=== PATIENT | male | born 1985 | race Caucasian/White ===

== ENCOUNTER 2020-04-17 14:32 | Emergency (ER) | payer BC, SELFPAY ==
[2020-04-17 14:34] VITALS: BP 148/78; PULSE 89; RESP 19; TEMP 36.4; O2SAT 96; BMI 67.4
--- NOTE | 2020-04-17 14:53 | CT_ITS ---
STUDY: CT ABDOMEN AND PELVIS WITHOUT CONTRAST REASON FOR EXAM: Male, 34 years old. RUQ ABD PAIN. X 2 MONTHS. Hx of diverticulitis. Hernia surgery at age 1. RADIATION DOSAGE (If Supplied By Facility): CTDIvol = ( 24.33 ) mGy, DLP = ( 1924.53 ) mGycm TECHNIQUE: Transaxial images were obtained from the dome of the diaphragm to the symphysis pubis without oral contrast, and without intravenous contrast. Sagittal and coronal images were reconstructed. Individualized dose optimization techniques were used for this CT. COMPARISON: None. FINDINGS: The visualized lung bases are unremarkable. The visualized portions of the heart are within normal limits. There is decreased attenuation of the liver consistent with steatosis. Mild hepatomegaly. The gallbladder is contracted. Normal spleen. Normal pancreas. Normal bilateral adrenal glands. Normal right kidney. Normal left kidney. Normal visualized stomach. Normal small intestine. Normal colon. The appendix is visualized and appears normal. Normal abdominal aorta. Normal inferior vena cava. Normal retroperitoneum. Normal urinary bladder. Normal abdominal wall. Normal osseous structures. CT/Abdomen/Pelvis W IV Cont ONLY IMPRESSION: Mild hepatomegaly with fatty infiltration of the liver. Electronically Signed: Dylan Eastman, at 15:52 EDT , Service support ,
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
[2020-04-17 15:15] LABS: Absolute Lymphocyte Count 2.06 X10^3/uL (0.83-4.51); Absolute Neutrophil Count 6.6 X10^3/uL (2.0-7.7); Basophil# 0.03 X10^3/uL; Basophil% 0.3 % (0-1); Eosinophil# 0.15 X10^3/uL; Eosinophils% 1.5 % (0-5); Hematocrit 40.8 % (40-54); Hemoglobin 13.5 g/dL (13.0-16.5); Lymphocyte # 2.06 X10^3/ul (4.0); Lymphocyte % 21.3 % (19-41); Mean Corp Hgb Conc 33.1 g/dL (32-36); Mean Corpuscular Hgb 28.8 pg (27.0-32.0); Mean Platelet Vol. 9.4 fl (6.2-12.0); Monocyte# 0.82 X10^3/uL; Monocyte% 8.5 % (0-10); NRBC Flagged by Analyzer 0 % (0-5); Neutrophil % 68.1 % (47-70); Platelet Count 233 K/mm3 (150-450); RBC Distribution Width CV 13.2 % (11.6-14.6); RBC Distribution Width SD 41.7 fl (35.1-43.9); Red Blood Count 4.69 M/mm3 (4.6-6.2); White Blood Count 9.7 K/mm3 (4.4-11.0)
[2020-04-17 15:26] LABS: Bacteria 0 SEEN /hpf (None Seen); Mucous, Urine 0 SEEN /hpf (<or=2+); Red Blood Cells-Urine 0 SEEN /hpf (0-5); Squamous Epithelial Cells - UA 0 SEEN /hpf (0-5); White Blood Cells 0 SEEN /hpf (0-5)
[2020-04-17 15:31] LABS: ALB/GLOB Ratio 0.9 RATIO (0.9-2.4); AST(SGOT) 26 U/L (15-37); Alanine Aminotransfer ALT/SGPT 44 U/L (16-61); Albumin, Serum 3.6 g/dL (3.2-5.0); Alkaline Phosphatase 68 U/L (45-117); Anion Gap 5 (5-15); BUN 19 mg/dL (7-18); Calcium,Total 8.7 mg/dL (8.5-10.1); Chloride 106 mmol/L (98-107); EST Glomerular Filtration Rate 100 mL/min (>60); Est Glom Filt Rate - Afr Amer 122 mL/min (>60); Estimated Creatinine Clearance 128.23 ml/min; Glucose 106 mg/dL (74-106); Lipase 98 U/L (73-393); Protein, Total 7.6 g/dL (6.4-8.2); Sodium Level 139 mmol/L (136-145)
[2020-04-17 15:35] LABS: Color, Urine Yellow (Yellow); Glucose, Dipstick Normal (Normal); Ketone-Dipstick Negative (Negative); Leukocyte Esterase-Dipstick Negative /ul (Negative); Nitrite-Dipstick Negative (Negative); Occult Blood-Urine Negative /ul (Negative); Protein-Dipstick Negative (Negative); Urine Bilirubin Dipstick Negative (Negative); Urine Clarity Clear (Clear); Urine Urobilinogen Normal (Normal)
== END 2020-04-17 17:16 | disposition home or self-care (01) ==
PROVIDERS: Emergency Provider Student in an Organized Health Care Education/Training Program; PCP Family Medicine
DX: R10.11 Right upper quadrant pain (principal); R16.0 Hepatomegaly, not elsewhere classified; I10 Essential (primary) hypertension; K21.9 Gastro-esophageal reflux disease without esophagitis
CPT/HCPCS: 74177; 80053; 81001; 83690; 85025; 99283; Q9967; A4216

== ENCOUNTER 2020-06-04 11:41 | Day surgery (SDC) | payer BC, SELFPAY ==
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
[2020-06-04 12:17] VITALS: BP 147/71; PULSE 77; RESP 16; TEMP 36.2; O2SAT 98; BMI 65.0
[2020-06-04] MEDS: Lactated Ringers 1,000 ML 75 ML IV (12:32)
--- NOTE | 2020-06-04 12:45 | COLBX_PTH ---
PATIENT: TOLU DURAN LOC: EN U#:[id number] AGE/SX: 34/M ROOM: RE06/04/[address]: Dr. Priscilla Calabrese MD : 1985 BED: DIS: 06/04/2020 SPEC #: [id number] RECD: 06/04/20 14:47 STATUS: DANK BRIEN #: [id number] NIKHIL: 06/04/20 12:[address]: Priscilla Calabrese DEPT: SURGICAL PATHOLOGY RECD BY: Keeley Everett ENTERED: 06/05/20 07:26 SP TYPE: COLON BX OTHR DR: MD Dr. Orlin Jon MD Tissues: A - Duodenum, NOS B - Gastric mucous membrane C - Gastric mucous membrane D - COLON BIOPSY Procedures: Trichrome (control) Special Stain Group II Surgery Specimen Level IV Alcian Blue/PAS (control) HEADER OPERATION: Colonoscopy, EGD ([facility] [place]) PRE-OP DIAGNOSIS: RUQ pain TISSUE SUBMITTED: A - Second portion duodenum biopsy, B - Antrum biopsy for histo and H. pylori, C - GE junction biopsy, D - Random colon biopsies MICROSCOPIC DIAGNOSIS A. Second portion of duodenum, biopsy: Minimal nonspecific chronic inflammation. B. Gastric antrum, biopsy: Minimal chronic inflammation. See comment. C. Gastroesophageal junction, biopsy: Chronic inflammation. No evidence of goblet cell metaplasia. See comment. D. Colon, random biopsy: Focal changes suspicious for collagenous colitis. See comment. AM:taisha 06/06/20 COMMENT B. The results of immunohistochemistry for Helicobacter pylori will be reported separately ([id number]). C. Alcian blue/PAS stain with matched control supports the above diagnosis. D. Trichrome stain with matched control was used in the evaluation of this case. MICROSCOPIC DESCRIPTION Slides are reviewed. GROSS DESCRIPTION A - Received in fixative is one container labeled with the patient's name and designated second portion of duodenum, biopsy. The specimen consists of one irregular fragment of light paz soft tissue that measures 0.5 x 0.2 x 0.1 cm. The specimen is totally submitted in one cassette. B - Received in fixative is one container labeled with the patient's name and designated antrum biopsy. The specimen consists of multiple irregular fragments of light paz soft tissue that in aggregate measure 0.3 x 0.3 x 0.1 cm. The specimen is totally submitted in one cassette. C - Received in fixative is one container labeled with the patient's name and designated GE junction biopsy. The specimen consists of two irregular fragments of light paz soft tissue that in aggregate measure 0.7 x 0.5 x 0.1 cm. The specimen is totally submitted in one cassette. D - Received in fixative is one container labeled with the patient's name and designated random colon biopsy. The specimen consists of multiple irregular fragments of light paz soft tissue that in aggregate measure 1.5 x 0.5 x 0.1 cm. The specimen is totally submitted in one cassette. / AM:taisha 06/05/20 TC:3 CPT: 22975 x4, 67937 x2
--- NOTE | 2020-06-04 12:45 | IMM_PTH ---
PATIENT: TOLU DURAN LOC: LEN U#:[id number] AGE/SX: 34/M ROOM: RE06/04/[address]: Dr. Priscilla Calabrese MD : 1985 BED: DIS: 06/04/2020 SPEC #: [id number] RECD: 06/05/20 09:52 STATUS: DANK REOusmane #: [id number] NIKHIL: 06/04/20 12:[address]: Priscilla Calabrese DEPT: IMMUNOHISTOCHEMISTRY RECD BY: Irma Kang ENTERED: 06/05/20 09:54 SP TYPE: IMMUNO OTHR DR: MD Dr. Orlin Jon MD Tissues: B - Stomach, NOS Procedures: H Pylori (initial) PHYSICIAN & INSTITUTION [place] [id number] SPECIMEN INFORMATION: Tissue Source: B - Antrum biopsy Clinical Info: RUQ pain Specimen Number: [id number] CPT code: 03845 METHODOLOGY: Deparaffinized sections of prefer/formalin-fixed tissue or PAP/DQ stained slides are incubated with monoclonal/polyclonal antibodies/oligonucleotide probes. Localization is made via biotin free immunoperoxidase method. Appropriate controls are performed and reacted as expected. Results on target cell population are indicated in the following table: RESULTS: ANTIBODY / CLONE RESULT Block B H Pylori (polyclonal) negative These tests were developed and their performance characteristics determined by [facility]. They may not have been cleared or approved by the U.S. Food and Drug Administration. The FDA has determined that such clearance or approval is not necessary. INTERPRETATION: B. Antrum biopsy: Negative for Helicobacter pylori organisms. AM:taisha 06/06/20
[2020-06-04 13:26] VITALS: BP 114/53; BP 147/71; PULSE 72; RESP 16; TEMP 36.2; O2SAT 96
--- NOTE | 2020-06-04 13:27 | OP.CCLET_ITS ---
06/04/2020 Orlin Canchola Md Re : Upper GI endoscopy procedure for Neil Garces Dear Dr. Canchola This procedure was performed on Thursday, June 04, 2020. My impressions and recommendations are as follows: Impressions : - Normal first portion of the duodenum and second portion of the duodenum. Biopsied. - Normal stomach. Biopsied. - Z-line irregular. Biopsied. Recommendations : - Discharge patient to home (ambulatory). - Resume previous diet. - Continue present medications. - Await pathology results. - Follow up with Safia Oviedo CNP for discussion of results. My findings are described in the full procedure note, which is enclosed. If I can be of further assistance, please feel free to contact me at Doctor phone number(s): , Work: . Sincerely, MD Priscilla Marquez MD 06/04/2020 1:27:22 PM This report has been signed electronically.
--- NOTE | 2020-06-04 13:27 | OP.EGD_ITS ---
Patient Name: Neil Garces Procedure Date: 06/04/2020 12:49 PM Date of : 1985 Age: 34 Procedure: Upper GI endoscopy Indications: Generalized abdominal pain Providers: Priscilla Calabrese MD Referring MD: Orlin Canchola Medicines: See the Anesthesia note for documentation of the administered medications Patient Profile: Refer to note in patient chart for documentation of history and physical. Complications: No immediate complications. Procedure: Pre-Anesthesia Assessment: - see anesthesia note After obtaining informed consent, the endoscope was passed under direct vision. Throughout the procedure, the patient's blood pressure, pulse, and oxygen saturations were monitored continuously. The gastroscope was introduced through the mouth, and advanced to the second part of duodenum. The upper GI endoscopy was accomplished without difficulty. The patient tolerated the procedure well. Scope In: 12:55:25 PM Scope Out: 1:01:51 PM Total Procedure Duration Time 0 hours 6 minutes 26 seconds Findings: The first portion of the duodenum and second portion of the duodenum were normal. Biopsies were taken with a cold forceps for histology. Verification of patient identification for the specimen was done by the nurse. Estimated blood loss was minimal. The entire examined stomach was normal. Biopsies were taken with a cold forceps for histology. Patient had non defined pylorus. The Z-line was irregular and small hiatal hernia was present. Biopsies were taken with a cold forceps for histology. Verification of patient identification for the specimen was done by the nurse. Estimated blood loss was minimal. Impression: - Normal first portion of the duodenum and second portion of the duodenum. Biopsied. - Normal stomach. Biopsied. - Z-line irregular. Biopsied. Recommendation: - Discharge patient to home (ambulatory). - Resume previous diet. - Continue present medications. - Await pathology results. - Follow up with Safia Oviedo CNP for discussion of results. Procedure Code(s): --- Professional --- 24428, Esophagogastroduodenoscopy, flexible, transoral; with biopsy, single or multiple Diagnosis Code(s): --- Professional --- K22.8, Other specified diseases of esophagus R10.84, Generalized abdominal pain CPT copyright 2017 [employer]. All rights reserved. The codes documented in this report are preliminary and upon pl sql developer review may be revised to meet current compliance requirements. MD Priscilla Marquez MD 06/04/2020 1:27:22 PM This report has been signed electronically. Number of Addenda: 0 Note Initiated On: 06/04/2020 12:49 PM
[2020-06-04 13:30] VITALS: BP 110/67; BP 147/71; PULSE 72; RESP 16; O2SAT 97
--- NOTE | 2020-06-04 13:30 | OP.COLON_ITS ---
Patient Name: eNil Garces Procedure Date: 06/04/2020 1:04 PM Date of : 1985 Age: 34 Procedure: Colonoscopy Indications: Generalized abdominal pain Providers: Priscilla Calabrese MD Referring MD: Orlin Canchola Medicines: See the Anesthesia note for documentation of the administered medications Patient Profile: Refer to note in patient chart for documentation of history and physical. Last Colonoscopy: none. The patient's first colonoscopy is today. Complications: No immediate complications. Procedure: Pre-Anesthesia Assessment: - see anesthesia note After I obtained informed consent, the scope was passed under direct vision. Throughout the procedure, the patient's blood pressure, pulse, and oxygen saturations were monitored continuously. The colonoscope was introduced through the anus and advanced to the cecum, identified by the appendiceal orifice, ileocecal valve and palpation. The colonoscopy was performed without difficulty. The patient tolerated the procedure well. The quality of the bowel preparation was adequate to identify polyps 6 mm and larger in size. Scope In: 1:05:04 PM Scope Withdrawal Time 0 hours 9 minutes 1 second Scope Out: 1:22:32 PM Total Procedure Duration Time 0 hours 17 minutes 28 seconds Findings: The perianal and digital rectal examinations were normal. Non-bleeding internal hemorrhoids were found. Multiple small and large-mouthed diverticula were found in the sigmoid colon. Biopsies for histology were taken with a cold forceps from the entire colon for evaluation of microscopic colitis. Impression: - Non-bleeding internal hemorrhoids. - Diverticulosis in the sigmoid colon. - No specimens collected. Recommendation: - Discharge patient to home (ambulatory). - Resume previous diet. - Continue present medications. - Await pathology results. - Follow up with Safia Oviedo CNP for discussion of results - Repeat colonoscopy as per ACS guidelines for screening for colon cancer. Procedure Code(s): --- Professional --- 94361, Colonoscopy, flexible; with biopsy, single or multiple Diagnosis Code(s): --- Professional --- K64.8, Other hemorrhoids R10.84, Generalized abdominal pain K57.30, Diverticulosis of large intestine without perforation or abscess without bleeding CPT copyright 2017 [employer]. All rights reserved. The codes documented in this report are preliminary and upon legal technician review may be revised to meet current compliance requirements. MD Priscilla Marquez MD 06/04/2020 1:30:23 PM This report has been signed electronically. Number of Addenda: 0 Note Initiated On: 06/04/2020 1:04 PM
--- NOTE | 2020-06-04 13:31 | OP.CCLET_ITS ---
06/04/2020 Orlin Canchola Md Re : Colonoscopy procedure for Neil Garces Dear Dr. Canchola This procedure was performed on Thursday, June 04, 2020. My impressions and recommendations are as follows: Impressions : - Non-bleeding internal hemorrhoids. - Diverticulosis in the sigmoid colon. - No specimens collected. Recommendations : - Discharge patient to home (ambulatory). - Resume previous diet. - Continue present medications. - Await pathology results. - Follow up with Safia Oviedo CNP for discussion of results - Repeat colonoscopy as per ACS guidelines for screening for colon cancer. My findings are described in the full procedure note, which is enclosed. If I can be of further assistance, please feel free to contact me at Doctor phone number(s): , Work: . Sincerely, MD Priscilla Marquez MD 06/04/2020 1:30:23 PM This report has been signed electronically.
[2020-06-04 13:35] VITALS: BP 122/72; BP 147/71; PULSE 73; RESP 16
[2020-06-04 13:41] VITALS: BP 128/89; BP 147/71; PULSE 72; RESP 16; TEMP 36.3; O2SAT 100
[2020-06-04 14:10] VITALS: BP 147/71
== END 2020-06-04 14:10 | disposition home or self-care (01) ==
LOC: EN 11:42 → AC 11:47
PROVIDERS: Anesthesiology; PCP Family Medicine; Referring Provider Family Medicine; Visit Provider Surgery
PROC: 0DJD8ZZ Inspection of Lower Intestinal Tract, Via Natural or Artificial Opening Endoscopic (ICD-10-PCS; CPT 45378; principal; 2020-06-04 12:40)
DX: K57.30 Diverticulosis of large intestine without perforation or abscess without bleeding (principal); K64.8 Other hemorrhoids; K29.70 Gastritis, unspecified, without bleeding; K29.80 Duodenitis without bleeding; K22.8 Other specified diseases of esophagus; Z11.59 Encounter for screening for other viral diseases; I10 Essential (primary) hypertension; E55.9 Vitamin D deficiency, unspecified; G47.33 Obstructive sleep apnea (adult) (pediatric); E66.01 Morbid (severe) obesity due to excess calories; Z68.44 Body mass index [BMI] 60.0-69.9, adult; F43.10 Post-traumatic stress disorder, unspecified; Z79.899 Other long term (current) drug therapy; Z87.891 Personal history of nicotine dependence
CPT/HCPCS: 43239; 45380; 87635; 88305; 88313; 88342; C9803; U0003

== ENCOUNTER 2020-09-20 11:42 | Emergency (ER) | payer BC, SELFPAY ==
[2020-09-20 11:43] VITALS: BP 161/86; PULSE 84; RESP 22; TEMP 36.6; O2SAT 96; BMI 66.8
--- NOTE | 2020-09-20 11:53 | NURSING ---
NO OLD EKGS
[2020-09-20 12:25] LABS: Absolute Lymphocyte Count 1.84 X10^3/uL (0.83-4.51); Absolute Neutrophil Count 2.8 X10^3/uL (2.0-7.7); Basophil# 0.02 X10^3/uL; Basophil% 0.4 % (0-1); Eosinophil# 0.09 X10^3/uL; Eosinophils% 1.7 % (0-5); Hematocrit 42.3 % (40-54); Hemoglobin 14.1 g/dL (13.0-16.5); Lymphocyte # 1.84 X10^3/ul (4.0); Lymphocyte % 35.2 % (19-41); Mean Corp Hgb Conc 33.3 g/dL (32-36); Mean Corpuscular Hgb 28.4 pg (27.0-32.0); Mean Corpuscular Volume 85.1 fL (80-94); Mean Platelet Vol. 9.7 fl (6.2-12.0); Monocyte# 0.47 X10^3/uL; NRBC Flagged by Analyzer 0 % (0-5); Neutrophil # 2.79 X10^3/uL (2.7-7.7); Neutrophil % 53.3 % (47-70); Platelet Count 235 K/mm3 (150-450); RBC Distribution Width CV 12.8 % (11.6-14.6); RBC Distribution Width SD 39.5 fl (35.1-43.9); Red Blood Count 4.97 M/mm3 (4.6-6.2); White Blood Count 5.2 K/mm3 (4.4-11.0)
--- NOTE | 2020-09-20 12:32 | RAD_ITS ---
STUDY: X-RAY CHEST REASON FOR EXAM: Male, 35 years old. COUGH, SOB TECHNIQUE: Single AP portable view of the chest. COMPARISON: None. FINDINGS: The lungs are clear and expanded. There is no demonstrated pleural abnormality. Normal size heart. Normal mediastinum and koby. Normal visualized pulmonary arteries. Normal visualized aortic arch and descending thoracic aorta. Normal visualized thoracic spine. Normal visualized ribs, clavicles, and shoulders. There is no demonstrated abnormality of the visualized soft tissue structures of the upper abdomen. RAD/Chest 1 View (Portable) IMPRESSION: Normal x-ray examination of the chest. Electronically Signed: Dylan Eastman, at 13:05 EST , Service support ,
[2020-09-20 12:33] VITALS: O2SAT 97
--- NOTE | 2020-09-20 12:34 | ED.DCSUM_ITS ---
- ER Visit Summary Date of Service: 09/20/20 Chief Complaint: Shortness of breath History of Present Illness: The patient is a 35 M who presents with shortness of breath that began today. Patient states it began while he was at work. Patient states he feels like he cannot catch his breath. Patient also admits to some tightness and coldness in his upper back. Patient states his breathing is worse with exertion. Patient denies any fevers or chills. Patient admits to cough with some srinivas sputum. Patient admits to some pain in his chest. Patient admits to nausea but denies any vomiting. Physical Examination: Vital signs are stable. Patient is afebrile. Patient is in no acute distress. Oral mucosa is pink and moist. Neck is supple. Trachea is midline. There is no JVD noted. Heart was regular rate and rhythm. Lungs are clear and equal bilaterally. Abdomen is soft. Bowel sounds are normal. There is no tenderness. There is no rebound or guarding noted. Skin is warm dry. Cranial nerves II through XII are intact. There are no focal motor or sensory deficits noted. Extremities are intact. There is no calf tenderness or edema. Test Results: Portable 1 view chest x-ray was obtained. On my interpretation, lung woodruff are clear. There is normal cardiac silhouette. Bony thorax is normal. There is no acute process noted. Radiologist also interpreted the x- ray and agrees. CBC and comprehensive metabolic profile were within normal limits. Lactate was normal. COVID-19 rapid antigen was obtained and was negative. Emergency Department Course and Treatment: Patient was given albuterol inhaler here. Patient was given a dose of Tylenol. Patient was instructed to use his albuterol inhaler as needed. Patient was instructed to follow-up with his primary care physician in 5 to 7 days. Patient understood and was agreeable with the plan. All questions were answered. Disposition: Discharge home Impression: Viral upper respiratory infection This note was generated with [employer] dictation software. It may contain incorrect words, spelling, and punctuation that were not noted in review of the chart prior to signing ED Disposition - Plan for ED Patient: Disposition: Home or Assisted Living Diagnosis: Viral upper respiratory infection Instructions: ED URI, Viral, No Abx (Adult) Referrals: Orlin Canchola MD [Primary Care Provider] - 3-5 Days
[2020-09-20 12:38] LABS: ALB/GLOB Ratio 0.9 RATIO (0.9-2.4); AST(SGOT) 36 U/L (15-37); Alanine Aminotransfer ALT/SGPT 78 U/L (16-61); Albumin, Serum 3.6 g/dL (3.2-5.0); Alkaline Phosphatase 73 U/L (45-117); Anion Gap 4 (5-15); BUN 16 mg/dL (7-18); BUN/Creat Ratio 19.7 RATIO (10-20); Chloride 105 mmol/L (98-107); Creatinine, Serum 0.81 mg/dL (0.70-1.30); EST Glomerular Filtration Rate 113 mL/min (>60); Est Glom Filt Rate - Afr Amer 137 mL/min (>60); Estimated Creatinine Clearance 141.11 ml/min; Glucose 106 mg/dL (74-106); Potassium 3.8 mmol/L (3.5-5.1); Protein, Total 7.6 g/dL (6.4-8.2); Sodium Level 138 mmol/L (136-145)
[2020-09-20] MEDS: Acetaminophen 500 MG Tablet 1000 MG PO (12:53)
[2020-09-20 13:06] LABS: Lactic Acid 1.5 mmol/L (0.4-1.9)
[2020-09-20 13:54] VITALS: BP 126/59; PULSE 79; RESP 18; O2SAT 96
[2020-09-20 14:30] VITALS: BP 158/76; PULSE 71; RESP 16; O2SAT 99
== END 2020-09-20 14:31 | disposition home or self-care (01) ==
PROVIDERS: Emergency Provider Emergency Medicine; PCP Family Medicine
DX: J06.9 Acute upper respiratory infection, unspecified (principal); R07.9 Chest pain, unspecified; R11.0 Nausea; I10 Essential (primary) hypertension; G47.33 Obstructive sleep apnea (adult) (pediatric); E66.9 Obesity, unspecified; Z79.899 Other long term (current) drug therapy
CPT/HCPCS: 71045; 80053; 83605; 85025; 87426; 93005; 99285; A4216

== ENCOUNTER 2021-04-01 11:01 | Emergency (ER) | payer BC, SELFPAY ==
[2021-04-01 11:02] VITALS: BP 190/84; PULSE 82; RESP 16; TEMP 36.7; O2SAT 98; BMI 73.2
[2021-04-01 11:25] VITALS: BP 165/73; PULSE 76; RESP 16; O2SAT 98
--- NOTE | 2021-04-01 11:26 | EKG12_ITS ---
Test Reason : CP Blood Pressure : / mmHG Vent. Rate : 081 BPM Atrial Rate : 081 BPM P-R Int : 176 ms QRS Dur : 106 ms QT Int : 392 ms P-R-T Axes : 002 040 023 degrees QTc Int : 455 ms Normal sinus rhythm Normal ECG Confirmed by MALGORZATA ANTONIO, DEBRA ([id number]), film editor VAMSI BLAND ([id number]) on 04/03/2021 9:57:30 AM Referred By: BETH/DONNA Confirmed By:DEBRA MCGARRY MD
--- NOTE | 2021-04-01 11:40 | EDS_ITS ---
HPI History of Present Illness Chief Complaint: Lower Extremity Injury Informant: patient Onset/Context/Timing Onset: Month(s) (2) Context: Gradual Onset Timing: Continuous Quality of Pain: Sharp and Burning Location: Bilateral feet Worsened by: Nothing Relieved by: Movement Associated Symptoms Associated Symptoms: Negative for Parasthesia, Weakness and Loss of Funtion Narrative Narrative: Patient is with bilateral foot pain that has been getting worse over the past 2 months. Patient describes the pain is sharp and burning. Patient states it is better whenever he moves his feet. Patient states nothing makes it worse. Patient denies any paresthesias or weakness. Patient denies any trauma or injury. Patient states he has been driving a lot in the car but they are relatively short trips. Admits to some low back pain as well. Patient states that sometimes the pain radiates from his feet up to his hips. Patient also states he had an episode of pain in his chest and shortness of breath. Patient also had an episode of nausea but denies any vomiting. Patient denies any fevers or chills. PFSH PFS Medical History HTN (hypertension) Injury of meniscus of knee Home Medications cholecalciferol (vitamin D3) 2,000 unit PO DAILY 05/30/20 [History Last Taken Unknown] hydrochlorothiazide 25 mg PO DAILY 05/30/20 [History Last Taken Unknown] lisinopril 40 mg PO DAILY 05/30/20 [History Last Taken Unknown] hydrocodone-acetaminophen 1 tab PO Q6H PRN PRN 3 Days #10 tablet 04/01/21 [Rx Last Taken Unknown] Allergy/AdvReac Type Severity Reaction Status Date / Time No Known Allergies Allergy Verified 09/20/20 11:45 no surgical history Social History Smoking Status: Former smoker ROS ROS ED Constitutional Constitutional ED: Denies chills or fever(s) Eyes Eyes: Denies blurry vision or change in vision ENT ENT ED: Denies rhinorrhea or sore throat Cardiovascular Cardiovascular: Reports chest pain; Denies palpitations Respiratory/Chest Respiratory/Chest: Reports dyspnea; Denies cough Gastrointestinal Gastrointestinal: Reports nausea; Denies vomiting Genitourinary Genitourinary ED: Denies dysuria or hematuria Musculoskeletal Musculoskeletal: Reports back pain; Denies neck pain Integumentary Denies abscess or rash Neurologic Neurologic: Denies headache(s) or weakness Allergic/Immunologic Allergic/Immunologic ED: Denies mouth swelling or urticaria EXAM Physical Exam Const Vital Signs: 04/01/21 11:02 04/01/21 11:24 04/01/21 11:25 Temperature 98.0 F Temperature Source Temporal Pulse Rate 82 76 Respiratory Rate 16 16 Respiratory Effort Normal Non-Labored Blood Pressure 190/84 H 165/73 H Blood Pressure Mean 119 103 Pulse Ox 98 98 Oxygen Delivery Method Room Air Room Air 04/01/21 12:52 Temperature Temperature Source Pulse Rate Respiratory Rate Respiratory Effort Blood Pressure 146/55 H Blood Pressure Mean 85 Pulse Ox Oxygen Delivery Method Positive well nourished, well developed and obese General Appearance ED: well developed Nutritional Appearance: obese HEENT Reports moist mucous membranes Neck supple and no JVD Resp normal respiratory effort and clear to auscultation bilaterally Cardio regular rate, regular rhythm and no murmurs GI normal to inspection, nondistended, normoactive bowel sounds and non-tender Palpation: soft Extremity normal to inspection General Extremety ED: Yes edema; Negative for tenderness General Extremity: edema Neuro oriented x3, CN's II-XII intact bilaterally and no sensory deficits noted Sensorium / Orientation: alert Motor Exam: strength 5/5 throughout Psych mental status grossly normal Skin no rashes or lesions noted MDM MDM MDM Narrative Medical decision making narrative: EKG was obtained. On my interpretation, it showed a normal sinus rhythm with a rate of 81. GA interval, QRS interval, and QTc intervals were all normal. [place] was normal. There are no acute ST or T wave changes. Portable 1 view chest x-ray was obtained. On my interpretation, lung woodruff are clear. There is normal cardiac silhouette. Bony thorax is normal. There is no acute process noted. Radiologist also interpreted the x- ray and agrees. CBC and comprehensive metabolic profile were obtained and were within normal limits. High-sensitivity troponin was normal. Patient is feeling better on reevaluation. Patient was given a prescription for a short course of [place]. Patient was instructed to follow-up with his primary care physician in 5 to 7 days. Patient understood and was agreeable with the plan. All questions were answered. Lab Data Attestation: I reviewed the patient's lab results. Labs: Laboratory Results - last 24 hr 04/01/21 04/01/21 11:40 11:40 WBC 8.8 RBC 4.72 Hgb 13.5 Hct 41.9 MCV 88.8 MCH 28.6 MCHC 32.2 RDW Std Deviation 41.6 RDW Coeff of Simin 12.8 Plt Count 235 MPV 9.6 Immature Gran % (Auto) 0.300 Neut % (Auto) 68.6 Lymph % (Auto) 21.4 [place] % (Auto) 7.5 Eos % (Auto) 1.6 Baso % (Auto) 0.6 Absolute Neuts (auto) 6.0 Absolute Lymphs (auto) 1.88 Nucleated RBC % 0 Sodium 134 L Potassium 4.4 Chloride 100 Carbon Dioxide 27.0 Anion Gap 7 BUN 18 Creatinine 0.70 Estim Creat Clear Calc 158.59 Est GFR (MDRD) Af Amer 164 Est GFR (MDRD) Non-Af 135 BUN/Creatinine Ratio 25.9 H Glucose 116 H Calcium 8.9 Total Bilirubin 0.40 AST 32 ALT 42 Alkaline Phosphatase 68 Troponin I High Sens 12.3 Total Protein 7.5 Albumin 3.5 Globulin 4.0 Albumin/Globulin Ratio 0.9 Radiography Diagnostic Testing: Radiology Impression Chest X-Ray 04/01/21 11:44 IMPRESSION: No radiographic evidence of acute cardiopulmonary disease. at 1209 Reported and signed by: Eloise Paul MD Electronically Signed: Eloise Paul MD at 12:08 EDT Tel , Service support , EKG Initial EKG: Attestation: I personally reviewed and interpreted this EKG as follows: Interpretation: Sinus Rhythm (81) and No Acute Injury Pattern Prior EKG tracings: available for review Prior: Unchanged (09/20/2020) Discharge Plan Triage Chief Complaint: Lower Extremity Injury ED Provider: Monroe Forrest Dx/Rx/DC Orders Clinical Impression: Bilateral pain of leg and foot Instructions: ED Pain, Acute, Uncertain Cause Prescriptions: New hydrocodone-acetaminophen [hydrocodone-acetaminophen] 1 TABLET tablet 1 tab PO Q6H PRN PRN (Reason: Pain) 3 Days Qty: 10 RF: 0 No Action hydrochlorothiazide 25 MG tablet 25 mg PO DAILY RF: 0 lisinopril 40 MG tablet 40 mg PO DAILY RF: 0 cholecalciferol (vitamin D3) 2,000 UNIT capsule 2,000 unit PO DAILY RF: 0 Primary Care Provider: Orlin Canchola Referrals: Orlin Canchola MD [Primary Care Provider] - 3-5 Days Disposition Disposition: Home, Self Care
--- NOTE | 2021-04-01 11:44 | RAD_ITS ---
HISTORY: chest pain. TECHNIQUE: XR Chest 1 View. # of images incl. paperwork: 1. COMPARISON: 09/20/2020. FINDINGS: CARDIOMEDIASTINAL STRUCTURES: Cardiac silhouette not enlarged. Mediastinal contour unremarkable. LUNGS: Radiographically clear. PLEURA: No pleural effusion or pneumothorax. OSSEOUS STRUCTURES: Unremarkable. RAD/Chest 1 View (Portable) IMPRESSION: No radiographic evidence of acute cardiopulmonary disease. at 1209 Reported and signed by: Eloise Paul MD Electronically Signed: Eloise Paul MD at 12:08 EDT Tel , Service support ,
[2021-04-01 11:51] LABS: Absolute Lymphocyte Count 1.88 X10^3/uL (0.83-4.51); Basophil# 0.05 X10^3/uL; Basophil% 0.6 % (0-1); Eosinophil# 0.14 X10^3/uL; Eosinophils% 1.6 % (0-5); Hematocrit 41.9 % (40-54); Hemoglobin 13.5 g/dL (13.0-16.5); Lymphocyte # 1.88 X10^3/ul (0.83-4.51); Lymphocyte % 21.4 % (19-41); Mean Corp Hgb Conc 32.2 g/dL (32-36); Mean Corpuscular Hgb 28.6 pg (27.0-32.0); Mean Corpuscular Volume 88.8 fL (80-94); Mean Platelet Vol. 9.6 fl (6.2-12.0); Monocyte# 0.66 X10^3/uL; Monocyte% 7.5 % (0-10); NRBC Flagged by Analyzer 0 % (0-5); Neutrophil # 6.04 X10^3/uL (2.7-7.7); Neutrophil % 68.6 % (47-70); Platelet Count 235 K/mm3 (150-450); RBC Distribution Width CV 12.8 % (11.6-14.6); RBC Distribution Width SD 41.6 fl (35.1-43.9); Red Blood Count 4.72 M/mm3 (4.6-6.2); White Blood Count 8.8 K/mm3 (4.4-11.0)
[2021-04-01 12:15] LABS: ALB/GLOB Ratio 0.9 RATIO (0.9-2.4); AST(SGOT) 32 U/L (15-37); Alanine Aminotransfer ALT/SGPT 42 U/L (16-61); Albumin, Serum 3.5 g/dL (3.2-5.0); Alkaline Phosphatase 68 U/L (45-117); Anion Gap 7 (5-15); BUN 18 mg/dL (7-18); BUN/Creat Ratio 25.9 RATIO (10-20); Calcium,Total 8.9 mg/dL (8.5-10.1); Chloride 100 mmol/L (98-107); EST Glomerular Filtration Rate 135 mL/min (>60); Est Glom Filt Rate - Afr Amer 164 mL/min (>60); Estimated Creatinine Clearance 158.59 ml/min; Glucose 116 mg/dL (74-106); Potassium 4.4 mmol/L (3.5-5.1); Protein, Total 7.5 g/dL (6.4-8.2); Sodium Level 134 mmol/L (136-145); Troponin-I HS 12.3 pg/mL (3.0-78.5)
[2021-04-01 12:52] VITALS: BP 146/55
== END 2021-04-01 14:38 | disposition home or self-care (01) ==
PROVIDERS: Emergency Provider Emergency Medicine; PCP Family Medicine
DX: M79.604 Pain in right leg (principal); M79.605 Pain in left leg; M79.671 Pain in right foot; M79.672 Pain in left foot; R07.9 Chest pain, unspecified; R06.02 Shortness of breath; R11.0 Nausea; M54.5 Low back pain; I10 Essential (primary) hypertension; E66.9 Obesity, unspecified; Z79.899 Other long term (current) drug therapy; Z87.891 Personal history of nicotine dependence
CPT/HCPCS: 71045; 80053; 84484; 85025; 93005; 99285; A4216

== ENCOUNTER 2021-08-07 10:32 | Emergency (ER) | payer BC, SELFPAY ==
[2021-08-07 10:33] VITALS: BP 208/85; PULSE 84; RESP 18; TEMP 36.1; O2SAT 97; BMI 69.7
--- NOTE | 2021-08-07 11:40 | CT_ITS ---
STUDY: CT ABDOMEN AND PELVIS WITH CONTRAST REASON FOR EXAM: Male, 36 years old. Abdominal pain since Wednesday. RADIATION DOSAGE (If Supplied By Facility): CTDIvol = ( 40.91 ) mGy, DLP = ( 2147.83 ) mGycm TECHNIQUE: Transaxial images were obtained from the dome of the diaphragm to the symphysis pubis without oral contrast. IV 100mL Isovue-370 was administered. Sagittal and coronal images were reconstructed. Individualized dose optimization techniques were used for this CT. COMPARISON: Comparison is made with prior study dated 04/17/2020. FINDINGS: The visualized lung bases are unremarkable. The visualized portions of the heart are within normal limits. There is decreased attenuation of the liver consistent with steatosis. Hepatomegaly. Normal gallbladder and extrahepatic biliary system. Normal spleen. Normal pancreas. Normal bilateral adrenal glands. Normal right kidney. Normal left kidney. Normal visualized stomach. Normal small intestine. There are scattered colonic diverticula consistent with diverticulosis. The appendix is visualized and appears normal. Normal abdominal aorta. Normal inferior vena cava. Normal retroperitoneum. Normal urinary bladder. Normal abdominal wall. Normal osseous structures. CT/Abdomen/Pelvis W IV Cont ONLY IMPRESSION: Hepatomegaly and diffuse fatty infiltration of liver. Scattered sigmoid diverticula. Electronically Signed: Dylan Eastman MD at 13:25 EST , Service support ,
--- NOTE | 2021-08-07 11:41 | EX.ED.DYSGE1 ---
HPI History of Present Illness Chief Complaint: Abd Pain Informant: patient Narrative Narrative: 36-year-old male presenting to the emergency department with abdominal pain. Patient notes pain across his upper abdomen since Wednesday states it feels very similar to pain he experienced when he had diverticulitis in 2018. He states at that time he was hospitalized but did not have an abscess or perforation. He had a follow-up colonoscopy by Dr. Shankar and has had an EGD with Dr. Calabrese. He denies any fevers. He notes diarrhea yesterday. PFSH PFSH Medical History (Updated 08/07/21 @ 14:[address] Trevor Morrison DO) HTN (hypertension) Injury of meniscus of knee Home Medications cholecalciferol (vitamin D3) 2,000 unit PO DAILY 05/30/20 [History Last Taken Unknown] hydrochlorothiazide 25 mg PO DAILY 05/30/20 [History Last Taken Unknown] lisinopril 40 mg PO DAILY 05/30/20 [History Last Taken Unknown] hydrocodone-acetaminophen 1 tab PO Q6H PRN PRN 3 Days #10 tablet 04/01/21 [Rx Last Taken Unknown] pantoprazole [Protonix] 40 mg PO DAILY #30 tab 08/07/21 [Rx Last Taken Unknown] sucralfate [Carafate] 1 g PO Q6H 14 Days #56 tab 08/07/21 [Rx Last Taken Unknown] Allergy/AdvReac Type Severity Reaction Status Date / Time No Known Allergies Allergy Verified 09/20/20 11:45 Surgical History (Updated 08/07/21 @ 11:[address] Trevor Morrison DO) H/O left knee surgery Social History (Updated 08/07/21 @ 11:[address] Trevor Morrison DO) Smoking Status: Former smoker substance use type: does not use ROS ROS ED Constitutional Constitutional ED: Denies chills or weight loss Eyes Eyes: Denies change in vision or diplopia ENT ENT ED: Denies ear pain, rhinorrhea or sore throat Cardiovascular Cardiovascular: Denies chest pain, orthopnea, palpitations or racing heartbeat Respiratory/Chest Respiratory/Chest: Denies cough, dyspnea or orthopnea Gastrointestinal Gastrointestinal: Reports abdominal pain, diarrhea and nausea; Denies vomiting Genitourinary Genitourinary ED: Denies dysuria, hematuria or urinary frequency Musculoskeletal Musculoskeletal: Denies arthralgias or myalgias Integumentary Denies abscess or rash Neurologic Neurologic: Denies headache(s) or weakness Psychiatric Psychiatric: Denies anxiety, depression, suicidal ideation or suicidal thoughts Endocrine Endocrinology: Denies polydipsia, polyphagia or polyuria Allergic/Immunologic Allergic/Immunologic ED: Denies mouth swelling, tongue swelling or urticaria EXAM Physical Exam Const Vital Signs: 08/07/21 10:33 Temperature 97.0 F L Temperature Source Temporal Pulse Rate 84 Respiratory Rate 18 Blood Pressure 208/85 H Blood Pressure Mean 126 Pulse Ox 97 Oxygen Delivery Method Room Air Positive well nourished, well developed and obese General Appearance ED: well developed Nutritional Appearance: obese HEENT Reports normocephalic, head/scalp atraumatic, TM's clear and moist mucous membranes Negative for trauma Tympanic Membrane ED: Yes TM's clear Eyes PERRL and EOMs intact bilaterally Neck no lymphadenopathy, supple and no JVD Resp normal respiratory effort and clear to auscultation bilaterally Cardio regular rate, regular rhythm and no murmurs GI non-tender Auscultation: normoactive bowel sounds Palpation: soft and tender epigastric and LUQ Back/Spine no CVA tenderness and normal ROM Extremity normal to inspection General Extremety ED: Negative for edema General Extremity: Negative for edema Neuro oriented x3 and CN's II-XII intact bilaterally Sensorium / Orientation: alert Motor Exam: strength 5/5 throughout Psych mental status grossly normal Mood & Affect: Negative for depressed or tearful Skin no rashes or lesions noted and no wounds MDM MDM MDM Narrative Medical decision making narrative: Basic blood work is normal. Urinalysis is negative. CT the abdomen pelvis demonstrates sigmoid diverticulosis but no other obvious intra-abdominal abnormalities. I wonder if this could be gastritis versus peptic ulcer disease. We can start him on some Protonix and Carafate. He does note that sometimes the pain is worse with eating but sometimes not. I do not see any obvious bowel obstruction or anything we need to admit him for at this time. Patient is comfortable with her plan return if worsening or concern Lab Data Attestation: I reviewed the patient's lab results. Labs: Laboratory Results - last 24 hr 08/07/21 08/07/21 08/07/21 11:30 11:50 11:50 WBC 6.9 RBC 4.57 L Hgb 13.4 Hct 40.4 MCV 88.4 MCH 29.3 MCHC 33.2 RDW Std Deviation 41.4 RDW Coeff of Simin 12.9 Plt Count 217 MPV 9.4 Immature Gran % (Auto) 0.300 Neut % (Auto) 65.8 Lymph % (Auto) 23.6 [place] % (Auto) 8.6 Eos % (Auto) 1.3 Baso % (Auto) 0.4 Absolute Neuts (auto) 4.5 Absolute Lymphs (auto) 1.62 Nucleated RBC % 0 Sodium 137 Potassium 4.2 Chloride 104 Carbon Dioxide 28.0 Anion Gap 5 BUN 14 Creatinine 0.67 L Estim Creat Clear Calc 164.08 Est GFR (MDRD) Af Amer 170 Est GFR (MDRD) Non-Af 140 BUN/Creatinine Ratio 20.8 H Glucose 100 Calcium 9.2 Total Bilirubin 0.40 AST 31 ALT 52 Alkaline Phosphatase 64 Total Protein 7.6 Albumin 3.4 Globulin 4.2 Albumin/Globulin Ratio 0.8 L Lipase 66 L Urine Color Yellow Urine Clarity Sl. Cloudy Urine pH 5.0 Ur Specific [place] 1.020 Urine Protein 15 H Urine Glucose (UA) Normal Urine Ketones Negative Urine Occult Blood Negative Urine Nitrite Negative Urine Bilirubin Negative Urine Urobilinogen Normal Ur Leukocyte Esterase Negative Urine RBC 0-5 SEEN Urine WBC 0 SEEN Ur Squamous Epith Cells 0-5 SEEN Urine Bacteria RARE Urine Mucus 1+ Radiography Diagnostic Testing: Clinical Impression(s) from Imaging Studies Abdomen/Pelvis CT 08/07/21 11:40 IMPRESSION: Hepatomegaly and diffuse fatty infiltration of liver. Scattered sigmoid diverticula. Electronically Signed: Dylan Eastman MD at 13:25 EST , Service support , Discharge Plan Triage Chief Complaint: Abd Pain ED Provider: Trevor Morrison Dx/Rx/DC Orders Clinical Impression: Abdominal pain, acute Instructions: ED PEPTIC ULCER vs GASTRITIS Prescriptions: New sucralfate [Carafate] 1 gram tablet 1 g PO Q6H 14 Days Qty: 56 RF: 0 pantoprazole [Protonix] 40 mg tablet,delayed release (DR/EC) 40 mg PO DAILY Qty: 30 RF: 0 No Action hydrochlorothiazide 25 MG tablet 25 mg PO DAILY RF: 0 lisinopril 40 MG tablet 40 mg PO DAILY RF: 0 cholecalciferol (vitamin D3) 2,000 UNIT capsule 2,000 unit PO DAILY RF: 0 hydrocodone-acetaminophen [hydrocodone-acetaminophen] 1 TABLET tablet 1 tab PO Q6H PRN PRN (Reason: Pain) 3 Days Qty: 10 RF: 0 Primary Care Provider: Orlin Canchola Referrals: Gerber Krishnamurthy DO [STAFF PHYSICIAN] - As Needed (For gastroenterology evaluation if needed) Orlin Canchola MD [Primary Care Provider] - 1 Week if not improving Disposition Disposition: Home, Self Care
[2021-08-07 11:53] LABS: Color, Urine Yellow (Yellow); Glucose, Dipstick Normal (Normal); Ketone-Dipstick Negative (Negative); Leukocyte Esterase-Dipstick Negative /ul (Negative); Nitrite-Dipstick Negative (Negative); Occult Blood-Urine Negative /ul (Negative); Protein-Dipstick 15 mg/dl (Negative); Urine Bilirubin Dipstick Negative (Negative); Urine Clarity Sl. Cloudy (Clear); Urine Urobilinogen Normal (Normal); White Blood Cells 0 SEEN /hpf (0-5)
[2021-08-07 11:56] LABS: Absolute Lymphocyte Count 1.62 X10^3/uL (0.83-4.51); Absolute Neutrophil Count 4.5 X10^3/uL (2.0-7.7); Basophil# 0.03 X10^3/uL; Basophil% 0.4 % (0-1); Eosinophil# 0.09 X10^3/uL; Eosinophils% 1.3 % (0-5); Hematocrit 40.4 % (40-54); Hemoglobin 13.4 g/dL (13.0-16.5); Lymphocyte # 1.62 X10^3/ul (0.83-4.51); Lymphocyte % 23.6 % (19-41); Mean Corp Hgb Conc 33.2 g/dL (32-36); Mean Corpuscular Hgb 29.3 pg (27.0-32.0); Mean Corpuscular Volume 88.4 fL (80-94); Mean Platelet Vol. 9.4 fl (6.2-12.0); Monocyte# 0.59 X10^3/uL; Monocyte% 8.6 % (0-10); NRBC Flagged by Analyzer 0 % (0-5); Neutrophil % 65.8 % (47-70); Platelet Count 217 K/mm3 (150-450); RBC Distribution Width CV 12.9 % (11.6-14.6); RBC Distribution Width SD 41.4 fl (35.1-43.9); Red Blood Count 4.57 M/mm3 (4.6-6.2); White Blood Count 6.9 K/mm3 (4.4-11.0)
[2021-08-07 11:58] LABS: Bacteria RARE /hpf (None Seen); Mucous, Urine 1+ /hpf (<or=2+); Red Blood Cells-Urine 0-5 SEEN /hpf (0-5); Squamous Epithelial Cells - UA 0-5 SEEN /hpf (0-5)
[2021-08-07 12:16] LABS: ALB/GLOB Ratio 0.8 RATIO (0.9-2.4); AST(SGOT) 31 U/L (15-37); Alanine Aminotransfer ALT/SGPT 52 U/L (16-61); Albumin, Serum 3.4 g/dL (3.2-5.0); Alkaline Phosphatase 64 U/L (45-117); Anion Gap 5 (5-15); BUN 14 mg/dL (7-18); BUN/Creat Ratio 20.8 RATIO (10-20); Calcium,Total 9.2 mg/dL (8.5-10.1); Chloride 104 mmol/L (98-107); Creatinine, Serum 0.67 mg/dL (0.70-1.30); EST Glomerular Filtration Rate 140 mL/min (>60); Est Glom Filt Rate - Afr Amer 170 mL/min (>60); Estimated Creatinine Clearance 164.08 ml/min; Globulin 4.2 g/dL (2.2-4.2); Glucose 100 mg/dL (74-106); Lipase 66 U/L (73-393); Potassium 4.2 mmol/L (3.5-5.1); Protein, Total 7.6 g/dL (6.4-8.2); Sodium Level 137 mmol/L (136-145)
[2021-08-07 12:32] VITALS: BP 194/100; PULSE 71
[2021-08-07 14:14] VITALS: BP 196/70; PULSE 74
[2021-08-07 14:16] VITALS: BP 196/70; PULSE 74
== END 2021-08-07 14:22 | disposition home or self-care (01) ==
PROVIDERS: Emergency Provider Emergency Medicine; PCP Family Medicine
DX: R10.9 Unspecified abdominal pain (principal); K57.30 Diverticulosis of large intestine without perforation or abscess without bleeding; I10 Essential (primary) hypertension; E66.9 Obesity, unspecified; Z79.899 Other long term (current) drug therapy; Z87.891 Personal history of nicotine dependence; Z87.19 Personal history of other diseases of the digestive system
CPT/HCPCS: 74177; 80053; 81001; 83690; 85025; 99283; Q9967; A4216

== ENCOUNTER 2021-11-10 09:34 | Emergency (ER) | payer BC, SELFPAY ==
[2021-11-10 09:35] VITALS: BP 213/87; PULSE 76; RESP 20; TEMP 36.5; O2SAT 96; BMI 69.7
--- NOTE | 2021-11-10 10:05 | RAD_ITS ---
STUDY: X-RAY CHEST REASON FOR EXAM: Male, 36 years old. Chest pain TECHNIQUE: Single AP portable view of the chest. COMPARISON: Comparison is made with prior study dated 04/01/2021. FINDINGS: The lungs are clear and expanded. There is no demonstrated pleural abnormality. Normal size heart. Normal mediastinum and koby. Normal visualized pulmonary arteries. Normal visualized aortic arch and descending thoracic aorta. Normal visualized thoracic spine. Normal visualized ribs, clavicles, and shoulders. There is no demonstrated abnormality of the visualized soft tissue structures of the upper abdomen. RAD/Chest 1 View (Portable) IMPRESSION: Normal x-ray examination of the chest. Electronically Signed: Dylan Eastman MD at 10:40 EST ,
--- NOTE | 2021-11-10 10:07 | EKG12_ITS ---
Test Reason : CHEST PAIN Blood Pressure : / mmHG Vent. Rate : 071 BPM Atrial Rate : 071 BPM P-R Int : 172 ms QRS Dur : 106 ms QT Int : 406 ms P-R-T Axes : 004 037 025 degrees QTc Int : 441 ms Normal sinus rhythm Normal ECG Confirmed by GERRI ANTONIO, DEBI ([id number]), development editor VAMSI BLAND ([id number]) on 11/11/2021 9:56:29 AM Referred By: PC Confirmed By:DEBI TALLEY MD
[2021-11-10 10:09] VITALS: O2SAT 98
[2021-11-10] MEDS: Aspirin 81 MG TAB.CHEW 324 MG PO (10:16)
--- NOTE | 2021-11-10 10:27 | ED.VIS.CHEST ---
HPI History of Present Illness Chief Complaint: Chest Pain Informant: patient Narrative Narrative: Patient is a 36-year-old male with history of hypertension, PTSD, lower extremity edema and GERD presenting with chest pain. He states he started having nod sensation and pain in his chest on , 11/06/21. States is been constant since then but worse with movements or when his blood pressure goes up. He had some associated nausea today. States intermittently the pain will radiate to his shoulder blades or his left ribs. He describes the pain as his lower sternum and just to the left of that. Is not reproduced with palpation. No associated rash. Denies any new sweating. Denies any difficulty breathing or shortness of breath. Denies any significant cardiac history. Denies any new leg swelling. Notes he has chronic leg swelling which is why he was put on HCTZ. Has a family history of coronary artery disease, his father had an IL. Last month he was started on trazodone and sertraline. Is not sure if this is associated with his symptoms or not. [facility] Medical History HTN (hypertension) Injury of meniscus of knee Home Medications cholecalciferol (vitamin D3) 2,000 unit PO DAILY 05/30/20 [History Last Taken Unknown] hydrochlorothiazide 25 mg PO DAILY 05/30/20 [History Last Taken Unknown] lisinopril 40 mg PO DAILY 05/30/20 [History Last Taken Unknown] hydrocodone-acetaminophen 1 tab PO Q6H PRN PRN 3 Days #10 tablet 04/01/21 [Rx Last Taken Unknown] pantoprazole [Protonix] 40 mg PO DAILY #30 tab 08/07/21 [Rx Last Taken Unknown] sucralfate [Carafate] 1 g PO Q6H 14 Days #56 tab 08/07/21 [Rx Last Taken Unknown] Allergy/AdvReac Type Severity Reaction Status Date / Time No Known Allergies Allergy Verified 11/10/21 09:37 Surgical History H/O left knee surgery Social History Smoking Status: Former smoker substance use type: does not use ROS ROS ED Constitutional Constitutional ED: Denies chills or fever(s) Eyes Eyes: Denies blurry vision or change in vision ENT ENT ED: Denies ear pain Cardiovascular Cardiovascular: Reports as per HPI and chest pain; Denies palpitations Respiratory/Chest Respiratory/Chest: Denies cough or dyspnea Gastrointestinal Gastrointestinal: Reports diarrhea and nausea; Denies abdominal pain or vomiting Genitourinary Genitourinary ED: Denies dysuria or hematuria Musculoskeletal Musculoskeletal: Reports other Details: chronic lower extremity edema ; Denies arthralgias or myalgias Integumentary Denies rash Neurologic Neurologic: Denies headache(s) or weakness Psychiatric Psychiatric: Reports anxiety EXAM Physical Exam Const Vital Signs: 11/10/21 09:35 11/10/21 10:09 11/10/21 10:17 Temperature 97.7 F L Temperature Source Temporal Pulse Rate 76 Respiratory Rate 20 H Respiratory Effort Blood Pressure 213/87 H Blood Pressure Mean 129 Pulse Ox 96 98 Oxygen Delivery Method Room Air Room Air Room Air 11/10/21 12:11 11/10/21 13:22 11/10/21 13:37 Temperature Temperature Source Pulse Rate 86 88 Respiratory Rate 16 15 Respiratory Effort Normal Non-Labored Blood Pressure 149/83 H 145/54 H 149/85 H Blood Pressure Mean 105 84 Pulse Ox 95 98 Oxygen Delivery Method Room Air Positive well nourished, well developed and obese General Appearance ED: well developed Nutritional Appearance: obese HEENT Reports moist mucous membranes normocephalic and atraumatic Eyes PERRL and EOMs intact bilaterally Neck supple and no JVD Chest Wall inspection of chest normal and palpation of chest normal Chest: Negative for tenderness Resp normal respiratory effort Resp Narrative: 2+ bilateral pitting edema pretibial Auscultation: diminished lung sounds diffuse Cardio regular rate, regular rhythm and no murmurs GI normal to inspection, nondistended, normoactive bowel sounds Extremity normal to inspection General Extremety ED: Yes edema; Negative for tenderness General Extremity: edema Neuro oriented x3 Sensorium / Orientation: awake and alert Psych mental status grossly normal Skin no rashes or lesions noted Skin Narrative: Chronic venous stasis changes of the lower extremities. Heart Score History: Slightly/Non-Suspicious ECG: Normal Age: </= 45 years Risk Factors: 1 or 2 Risk Factors Troponin: </= Normal Limit Score: 1 MDM MDM MDM Narrative Medical decision making narrative: Patient is evaluated for chest pain has been going on for 3 to 4 days. Is been constant but fluctuating intensity. Patient appears nontoxic in no acute distress. His vital signs are markable for hypertension however it improved significantly without any intervention. Patient's EKG is normal sinus rhythm interpreted by myself. Lab work-up is largely unremarkable. His high since he troponin is 14 and 16. His BNP is normal. His TSH is 1.82. Normal CBC and BMP. Patient has no risk factors for PE and is PE RC negative. Patient will be discharged with outpatient cardiac follow-up. He is agreeable to splenic care. Patient counseled the exact cause of his pain is not clear however I do think he is stable for outpatient follow-up. Counseled on return precautions. Is given a dose of aspirin in the emergency room. Lab Data Labs: Laboratory Results - last 24 hr 11/10/21 11/10/21 11/10/21 10:02 10:02 10:02 WBC 8.4 RBC 4.76 Hgb 13.8 Hct 41.8 MCV 87.8 MCH 29.0 MCHC 33.0 RDW Std Deviation 41.9 RDW Coeff of Simin 13.0 Plt Count 229 MPV 9.6 Immature Gran % (Auto) 0.400 Neut % (Auto) 67.3 Lymph % (Auto) 22.1 Lander % (Auto) 7.7 Eos % (Auto) 1.9 Baso % (Auto) 0.6 Absolute Neuts (auto) 5.7 Absolute Lymphs (auto) 1.86 Nucleated RBC % 0 Sodium 136 Potassium 3.8 Chloride 100 Carbon Dioxide 32.0 Anion Gap 4 L BUN 15 Creatinine 0.72 Estim Creat Clear Calc 157.21 Est GFR (MDRD) Af Amer 158 Est GFR (MDRD) Non-Af 130 BUN/Creatinine Ratio 20.9 H Glucose 128 H Calcium 9.3 Troponin I High Sens 14 B-Natriuretic Peptide 17.0 TSH 1.82 11/10/21 12:10 WBC RBC Hgb Hct MCV MCH MCHC RDW Std Deviation RDW Coeff of Simin Plt Count MPV Immature Gran % (Auto) Neut % (Auto) Lymph % (Auto) Lander % (Auto) Eos % (Auto) Baso % (Auto) Absolute Neuts (auto) Absolute Lymphs (auto) Nucleated RBC % Sodium Potassium Chloride Carbon Dioxide Anion Gap BUN Creatinine Estim Creat Clear Calc Est GFR (MDRD) Af Amer Est GFR (MDRD) Non-Af BUN/Creatinine Ratio Glucose Calcium Troponin I High Sens 16 B-Natriuretic Peptide TSH Radiography Diagnostic Testing: Clinical Impression(s) from Imaging Studies Chest X-Ray 11/10/21 10:05 IMPRESSION: Normal x-ray examination of the chest. Electronically Signed: Dylan Eastman MD at 10:40 EST , Rhythm Strip Rhythm Strip: Sinus Rhythm Rate: 71 Ectopy: None EKG Initial EKG: Attestation: I personally reviewed and interpreted this EKG as follows: Interpretation: Sinus Rhythm Comments: Normal sinus rhythm at a rate of 71 Normal axis Normal intervals Normal ST segments Discharge Plan Triage Chief Complaint: Chest Pain ED Provider: Tana Dodge Dx/Rx/DC Orders Clinical Impression: Chest pain, Hypertension Instructions: ED Chest Pain, Uncertain Cause, ED Hypertension, Established Prescriptions: No Action hydrochlorothiazide 25 MG tablet 25 mg PO DAILY RF: 0 lisinopril 40 MG tablet 40 mg PO DAILY RF: 0 cholecalciferol (vitamin D3) 2,000 UNIT capsule 2,000 unit PO DAILY RF: 0 hydrocodone-acetaminophen [hydrocodone-acetaminophen] 1 TABLET tablet 1 tab PO Q6H PRN PRN (Reason: Pain) 3 Days Qty: 10 RF: 0 sucralfate [Carafate] 1 gram tablet 1 g PO Q6H 14 Days Qty: 56 RF: 0 pantoprazole [Protonix] 40 mg tablet,delayed release (DR/EC) 40 mg PO DAILY Qty: 30 RF: 0 Primary Care Provider: Orlin Canchola Referrals: Orlin Canchola MD [Primary Care Provider] - Disposition Disposition: Home, Self Care Discharge Date/Time: 11/10/21 13:38
[2021-11-10 10:33] LABS: Absolute Lymphocyte Count 1.86 X10^3/uL (0.83-4.51); Absolute Neutrophil Count 5.7 X10^3/uL (2.0-7.7); Basophil# 0.05 X10^3/uL; Basophil% 0.6 % (0-1); Eosinophil# 0.16 X10^3/uL; Eosinophils% 1.9 % (0-5); Hematocrit 41.8 % (40-54); Hemoglobin 13.8 g/dL (13.0-16.5); Lymphocyte # 1.86 X10^3/ul (0.83-4.51); Lymphocyte % 22.1 % (19-41); Mean Corpuscular Volume 87.8 fL (80-94); Mean Platelet Vol. 9.6 fl (6.2-12.0); Monocyte# 0.65 X10^3/uL; Monocyte% 7.7 % (0-10); NRBC Flagged by Analyzer 0 % (0-5); Neutrophil # 5.67 X10^3/uL (2.7-7.7); Neutrophil % 67.3 % (47-70); Platelet Count 229 K/mm3 (150-450); RBC Distribution Width SD 41.9 fl (35.1-43.9); Red Blood Count 4.76 M/mm3 (4.6-6.2); White Blood Count 8.4 K/mm3 (4.4-11.0)
[2021-11-10 10:56] LABS: Anion Gap 4 (5-15); BUN 15 mg/dL (7-18); BUN/Creat Ratio 20.9 RATIO (10-20); Calcium,Total 9.3 mg/dL (8.5-10.1); Chloride 100 mmol/L (98-107); Creatinine, Serum 0.72 mg/dL (0.70-1.30); EST Glomerular Filtration Rate 130 mL/min (>60); Est Glom Filt Rate - Afr Amer 158 mL/min (>60); Estimated Creatinine Clearance 157.21 ml/min; Glucose 128 mg/dL (74-106); Potassium 3.8 mmol/L (3.5-5.1); Sodium Level 136 mmol/L (136-145); Thyroid Stim Hormone (TSH) 1.82 uIU/mL (0.358-3.74); Troponin-I HS 14 pg/mL (3.0-78.0)
[2021-11-10 12:11] VITALS: BP 149/83; PULSE 86; RESP 16; O2SAT 95
[2021-11-10 12:40] LABS: Troponin-I HS 16 pg/mL (3.0-78.0)
[2021-11-10 13:22] VITALS: BP 145/54
[2021-11-10 13:37] VITALS: BP 149/85; PULSE 88; RESP 15; O2SAT 98
== END 2021-11-10 13:38 | disposition home or self-care (01) ==
PROVIDERS: Emergency Provider Emergency Medicine; PCP Family Medicine; Visit Provider Emergency Medicine
DX: R07.9 Chest pain, unspecified (principal); I10 Essential (primary) hypertension; K21.9 Gastro-esophageal reflux disease without esophagitis; R11.0 Nausea; E66.9 Obesity, unspecified; Z79.899 Other long term (current) drug therapy; Z87.891 Personal history of nicotine dependence
CPT/HCPCS: 36415; 71045; 80048; 83880; 84443; 84484; 85025; 93005; 99285; A4216

== ENCOUNTER 2022-07-21 16:13 | Outpatient (RCR) | payer BC, SELFPAY | END 2022-08-05 23:59 | LOC: NS 16:13 | PROVIDERS: PCP Nurse Practitioner Family; Referring Provider Physician Assistant Surgical; Visit Provider Physician Assistant Surgical | DX: E66.01 Morbid (severe) obesity due to excess calories (principal); M16.12 Unilateral primary osteoarthritis, left hip; Z68.45 Body mass index [BMI] 70 or greater, adult | CPT/HCPCS: 97802 ==

== ENCOUNTER 2022-08-03 16:00 | Outpatient (RCR) | payer BC, SELFPAY ==
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
--- NOTE | 2022-11-30 08:01 | HP.PT.NRP ---
TOLU DURAN was seen in my office for initial evaluation on 07/13/22. The following Plan of Care was established for this patient: Initial Frequency: 2x /Week Initial Duration: 4 Weeks Patient/Client Instruction: Educate patient on: Benefits of Fitness Program Therapeutic Exercise to Include: Strength training, Power training, Endurance training, Balance training, Coordination, Agility training, Body mechanics, Postural training, Flexibilty training, Gait and locomotor training, Neuromotor development, In an aquatic setting, Dynamic Lumbar Stabilization, Scapular Strength/Stabilization This patient was last seen in our office . Pertinent comments regarding their Physical therapy will appear below: Patient has not attended PT in over 30 days- appropriate to be d/c from PT and return to MD as appropriate At this point I will be discontinuing this patient from physical therapy. I would be happy to see this patient again in the future if found appropriate by the physician. Thank you! JOSE MoyT
== END 2022-08-03 19:00 | disposition home or self-care (01) ==
LOC: PT 16:00
PROVIDERS: PCP Family Medicine; Referring Provider Physician Assistant Surgical; Visit Provider Physician Assistant Surgical
DX: M16.12 Unilateral primary osteoarthritis, left hip (principal)
CPT/HCPCS: 97113; 97162

== ENCOUNTER 2022-09-29 14:52 | Outpatient (RCR) | payer BC, SELFPAY | END 2022-10-06 23:59 | LOC: NS 14:52 | PROVIDERS: PCP Nurse Practitioner Family; Referring Provider Physician Assistant Surgical; Visit Provider Physician Assistant Surgical | DX: Z71.3 Dietary counseling and surveillance (principal); E66.01 Morbid (severe) obesity due to excess calories; Z68.45 Body mass index [BMI] 70 or greater, adult; M16.12 Unilateral primary osteoarthritis, left hip | CPT/HCPCS: 97803 ==

== ENCOUNTER → 2022-10-16 | Outpatient (CLI) | payer BC, SELFPAY ==
[2022-10-16 10:10] LABS: Absolute Lymphocyte Count 1.66 X10^3/uL (0.83-4.51); Absolute Neutrophil Count 5.4 X10^3/uL (2.0-7.7); Basophil# 0.05 X10^3/uL; Basophil% 0.6 % (0-1); Eosinophil# 0.17 X10^3/uL; Eosinophils% 2.1 % (0-5); Hematocrit 45.4 % (40-54); Hemoglobin 14.7 g/dL (13.0-16.5); Lymphocyte # 1.66 X10^3/ul (0.83-4.51); Mean Corp Hgb Conc 32.4 g/dL (32-36); Mean Corpuscular Hgb 29.1 pg (27.0-32.0); Mean Corpuscular Volume 89.7 fL (80-94); Mean Platelet Vol. 9.7 fl (6.2-12.0); Monocyte# 0.59 X10^3/uL; Monocyte% 7.4 % (0-10); NRBC Flagged by Analyzer 0 % (0-5); Neutrophil # 5.42 X10^3/uL (2.7-7.7); Neutrophil % 68.5 % (47-70); Platelet Count 253 K/mm3 (150-450); RBC Distribution Width CV 13.5 % (11.6-14.6); RBC Distribution Width SD 44.2 fl (35.1-43.9); Red Blood Count 5.06 M/mm3 (4.6-6.2); White Blood Count 7.9 K/mm3 (4.4-11.0)
[2022-10-16 10:12] LABS: Erythrocyte Sedimentation Rate 45 mm/hr (0-20)
[2022-10-16 10:34] LABS: Hemoglobin A1c 7.9 % (3.8-5.6)
[2022-10-16 10:47] LABS: ALB/GLOB Ratio 0.7 RATIO (0.9-2.4); AST(SGOT) 22 U/L (15-37); Alanine Aminotransfer ALT/SGPT 42 U/L (16-61); Albumin, Serum 3.3 g/dL (3.2-5.0); Alkaline Phosphatase 106 U/L (45-117); Anion Gap 8 (5-15); BUN 17 mg/dL (7-18); BUN/Creat Ratio 21.4 RATIO (10-20); Chloride 100 mmol/L (98-107); EST Glomerular Filtration Rate 115 mL/min (>60); Est Glom Filt Rate - Afr Amer 139 mL/min (>60); Ferritin 197 ng/mL (26-388); Globulin 4.5 g/dL (2.2-4.2); Glucose 233 mg/dL (74-106); LDH 266 U/L (87-241); Potassium 4.2 mmol/L (3.5-5.1); Protein, Total 7.8 g/dL (6.4-8.2); Sodium Level 137 mmol/L (136-145)
[2022-10-16 11:09] LABS: HIV - WCH Non-Reactive (Nonreactive)
[2022-10-19 13:10] LABS: Anti-Centromere B Ab <0.2 AI (0.0-0.9); Anti-Chromatin <0.2 AI (0.0-0.9); Anti-Jo <0.2 AI (0.0-0.9); Anti-Scleroderma-70 AB <0.2 AI (0.0-0.9); RNP Ab 0.4 AI (0.0-0.9); SJOGREN'S Anti-SS-A test < 0.2 AI (0.0-0.9); SJOGREN'S Anti-SS-B test < 0.2 AI (0.0-0.9); Smith Ab <0.2 AI (0.0-0.9)
[2022-10-19 16:09] LABS: Endomysial Antibody IgA Negative (Negative)
[2022-10-19 23:16] LABS: Anti-Mitochondrial AB <20.0 Units (0.0-20.0); Anti-dsDNA Ab <1 IU/mL (0-9)
[2022-10-19 23:22] LABS: Immunoglobulin A 385 mg/dL (90-386); t-Transglutaminase IgA <2 U/mL (0-3)
[2022-10-23 20:07] LABS: Albumin 3.5 g/dL (2.9-4.4); Alpha-1-Globulins 0.2 g/dL (0.0-0.4); Alpha-2-Globulins 0.8 g/dL (0.4-1.0); Angiotensin Convert Enzyme 40 U/L (14-82); Ceruloplasmin 25.9 mg/dL (16.0-31.0); Gamma Globulin 1.3 g/dL (0.4-1.8); HEPATITIS B SURFACE AG Negative (Negative); Hep C Antibodies <0.1 s/co ratio (0.0-0.9); Hepatitis A IgM Antibody Negative (Negative); Hepatitis B Core AB IgM Negative (Negative); Immunoglobulin A 380 mg/dL (90-386); Immunoglobulin E 71 IU/mL (6-495); Immunoglobulin G 1287 mg/dL (603-1613); Immunoglobulin M 108 mg/dL (20-172); PROEL- TOTAL PROTEIN 7.1 g/dL (6.0-8.5)
[2022-10-23 22:21] LABS: AFP, Tumor Marker 1.9 ng/mL (0.0-6.9); Anti-Smooth Muscle ABS 11 Units (0-19); Copper, Serum or Plasma 101 ug/dL (69-132); Haptoglobin 259 mg/dL (17-317); Perinuclear Ab (P-ANCA) <1:20 titer (Neg:<1:20)
== END | disposition home or self-care (01) ==
LOC: LAB 09:40
PROVIDERS: PCP Nurse Practitioner Family; Visit Provider Internal Medicine Gastroenterology
DX: M79.604 Pain in right leg (principal); M79.605 Pain in left leg; M79.671 Pain in right foot; M79.672 Pain in left foot; R16.0 Hepatomegaly, not elsewhere classified
CPT/HCPCS: 36415; 80053; 80074; 82105; 82140; 82164; 82390; 82525; 82728; 82784; 82785; 83010; 83036; 83516; 83615; 84165; 85025; 85610; 85652; 86140; 86225; 86235; 86255; 86256; 86334; 86703

== ENCOUNTER → 2022-10-19 | Outpatient (CLI) | payer BC, SELFPAY ==
[2022-10-23 17:26] LABS: Pancreatic Elastase, Fecal 174 (>200)
[2022-10-23 19:19] LABS: Calprotectin, Stool <16 ug/g (0-120)
== END | disposition home or self-care (01) ==
LOC: MTLAB 13:11
PROVIDERS: Internal Medicine Gastroenterology; PCP Nurse Practitioner Family; Visit Provider Nurse Practitioner Family
DX: M79.604 Pain in right leg (principal); M79.605 Pain in left leg; M79.671 Pain in right foot; M79.672 Pain in left foot; R16.0 Hepatomegaly, not elsewhere classified; K58.9 Irritable bowel syndrome, unspecified
CPT/HCPCS: 82653; 83630; 83993; 87177; 87209; 87329; 87506

== ENCOUNTER 2022-10-22 09:30 | Outpatient (RCR) | payer BC, SELFPAY ==
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
--- NOTE | 2022-09-23 09:46 | HP.PTREVAL_ITS ---
LUDMILA ZULETA, It has been my pleasure to treat TOLU DURAN over the last 8 visits for Left THR 08/19/22. Please see the progress note below for an update on the physical therapy plan of care! Subjective: Patient reports that he is doing well- still does have stiffness- he still struggles with stairs due to the lateral muscles being weak. He feels that pain is getting better. He has a little difficulty getting in/out of the tub. He feels that he is 90%. He sees the MD on Wednesday and has not been released back to work. His work has no light duty rule. He wants to speak to MD prior to scheduling more therapy. Pain today 09/15 Objective/Function: Posture: fair throughout. Observation: sitting on plinth due to hip precautions. Gait: no AD- slightly antalgic- decreased stance on the left LE Stairs: asc/desc 8 recip per report with 2 HR. HR/TR: able with UE A. SLS: 2-3 seconds reports instability Palpation: tender in the quad from knee to hip. ROM: Ankle: WFL, Knee: 0-70 degrees- adipose tissue limitation, Hip: Flexion: 90 degrees Extn: 10 degrees, Abd: 40 degrees Add: neutral due to precautions IR/ER: not tested due to precautions. Strength: Core: fair plus, Hip: Flexion: 4+ Abd/Add: 4+/5, Extn: 4+/5, IR/ER isometric: 4/5. Knee: 5/5, Ankle: 5/5. Flex: HS: severe Gastroc: severe. Plan Plan: 09/23/21: Hold per pt request- PT encouraged more therapy due to abnormal gait pattern and dec functional mobility. Balance/Gait/Functional tests - Balance/Special Test Scores Lower Extremity Functional Score: 41 TUG Test Time Seconds: 10 Tug Test: <10 sec.=free mobile WOMAC Total Score: 29 WOMAC Percentage: 69.8000 Goals Goal 1:: Patient will be I with HEP and progression Goal Time Frame: 4-6 Weeks Goal Progress: Progressing Goal 2:: Patient will ambulate >300 feet with LRD Goal Time Frame: 4-6 Weeks Goal Progress: Progressing Goal 3:: Patient will asc/desc 8 stairs recip with 1 HR Goal Time Frame: 4-6 Weeks Goal Progress: Progressing Goal 4:: Patient will report 80% improvement Goal Time Frame: 4-6 Weeks Goal Progress: Goal Met Goal 5:: Patient will improved TUG to under 10 seconds with LRD Goal Time Frame: 4-6 Weeks Anticipated Interventions Patient/Client Instruction: Educate patient on: Benefits of Fitness Program Therapeutic Exercise to Include: Strength training, Endurance training, Balance training, Coordination, Agility training, Body mechanics, Postural training, Flexibilty training, Gait and locomotor training, Neuromotor development, D ynamic Lumbar Stabilization, Scapular Strength/Stabilization For the Purpose of:: To improve muscle performance and motor function TENS: Yes Cryotherapy (ice pack, ice massage): Yes Thermo therapy (hot pack): Yes Ultrasound (thermal/non thermal): No Please do not hesitate to contact me at [phone] by phone or if you have questions or concerns regarding this new plan of care! Sincerely, Emma Christine DPT
--- NOTE | 2022-10-22 10:56 | HP.PT.NRP ---
TOLU DURAN was seen in my office for initial evaluation on 08/25/22. The following Plan of Care was established for this patient: Initial Frequency: 3x /Week Initial Duration: 4 Weeks Patient/Client Instruction: Educate patient on: Benefits of Fitness Program Therapeutic Exercise to Include: Strength training, Endurance training, Balance training, Coordination, Agility training, Body mechanics, Postural training, Flexibilty training, Gait and locomotor training, Neuromotor development, Dynamic Lumbar Stabilization, Scapular Strength/Stabilization For the Purpose of:: To improve muscle performance and motor function TENS: Yes Cryotherapy (ice pack, ice massage): Yes Thermo therapy (hot pack): Yes Ultrasound (thermal/non thermal): No This patient was last seen in our office . Pertinent comments regarding their Physical therapy will appear below: Patient has requested to be discharged as he returns to work next week. At this point I will be discontinuing this patient from physical therapy. I would be happy to see this patient again in the future if found appropriate by the physician. Thank you! Emma Christine, JOSET Balance/Gait/Functional tests - Balance/Special Test Scores Lower Extremity Functional Score: 41 TUG Test Time Seconds: 10 Tug Test: <10 sec.=free mobile WOMAC Total Score: 29 WOMAC Percentage: 69.8000
== END 2022-10-22 10:59 | disposition home or self-care (01) ==
LOC: PT 09:30
PROVIDERS: PCP Nurse Practitioner Family
DX: Z96.642 Presence of left artificial hip joint (principal)
CPT/HCPCS: 97110; 97162; 97164

== ENCOUNTER → 2022-10-28 | Outpatient (CLI) | payer BC, SELFPAY ==
--- NOTE | 2022-10-28 09:46 | US_ITS ---
STUDY: ABDOMINAL ULTRASOUND - ELASTOGRAPHY REASON FOR VISIT: Male, 37 years old. Fatty infiltration of the liver. TECHNIQUE: Liver stiffness measurements were obtained on a [employer] RS 85 ultrasound machine using a CA 1-7 probe following the SRU guidelines. 3 measurements were obtained using a 2-D-SWE method. TheIQR/M was 12% suggesting a quality data set. TECHNICAL QUALITY: Limited. Examination limited due to a combination of factors including obesity and bowel gas. COMPARISON: Comparison is made with prior study done earlier today. FINDINGS: Liver: Diffuse fatty infiltration of the liver. Median liver stiffness measured 9 kPa. US/Elastography Parenchyma/Organ IMPRESSION: Liver stiffness measures 9 kPa compatible with F2-F3 (Mild to moderate liver fibrosis) Metavir score. Electronically Signed: Dylan Eastman MD at 15:27 EST ,
--- NOTE | 2022-10-28 09:46 | US_ITS ---
STUDY: ABDOMINAL ULTRASOUND - RIGHT UPPER QUADRANT REASON FOR VISIT: Male, 37 years old . Fatty infiltration of the liver. TECHNIQUE: Ultrasound evaluation of the right upper quadrant was performed with real-time and static goodman-scale imaging. TECHNICAL QUALITY: Limited. Examination limited due to a combination of factors including obesity and bowel gas. COMPARISON: None. FINDINGS: Liver: The liver is enlarged and measures 26.4 cm. There is increased echogenicity consistent with fatty infiltration. The bile ducts are within normal limits. There is hepatic color flow. The direction of portal flow is hepatopetal. There is no demonstrated mass lesion. Gallbladder: Normal distended gallbladder. The gallbladder wall measures 3 mm. There is a negative sonographic Howard''s sign. There is no pericholecystic fluid. There are no gallstones. Common Bile Duct (C.B.D.): The common bile duct is slightly dilated and measures 8 mm. Pancreas: There is nonvisualization of the pancreas due to overlying bowel gas. Right Kidney: Normal size of the right kidney. The right kidney measures 14.3 cm x 7.5 cm x 6.2 cm. Normal renal cortex. The right cortex measures 2.4 cm. There is no demonstrated renal mass or cyst. There is no right hydronephrosis. US/Abdomen Limited IMPRESSION: Marked degree of hepatomegaly with diffuse fatty infiltration of the liver. Electronically Signed: Dylan Eastman MD at 15:40 EST ,
== END | disposition home or self-care (01) ==
LOC: US 09:45
PROVIDERS: PCP Nurse Practitioner Family; Referring Provider Internal Medicine Gastroenterology; Visit Provider Internal Medicine Gastroenterology
DX: M79.604 Pain in right leg (principal); M79.605 Pain in left leg; M79.671 Pain in right foot; M79.672 Pain in left foot; R16.0 Hepatomegaly, not elsewhere classified
CPT/HCPCS: 76705; 76981

== ENCOUNTER 2022-11-16 15:45 | Outpatient (RCR) | payer BC, SELFPAY | END 2022-12-04 23:59 | LOC: NS 15:45 | PROVIDERS: PCP Nurse Practitioner Family; Referring Provider Physician Assistant Surgical; Visit Provider Physician Assistant Surgical | DX: Z71.3 Dietary counseling and surveillance (principal); E66.01 Morbid (severe) obesity due to excess calories; Z68.45 Body mass index [BMI] 70 or greater, adult; M16.12 Unilateral primary osteoarthritis, left hip | CPT/HCPCS: 97803 ==

== ENCOUNTER 2024-04-05 09:44 | Emergency (ER) | payer OTHER, BC, SELFPAY ==
[2024-04-05 09:44] VITALS: BP 212/101; PULSE 89; RESP 16; TEMP 35.7; O2SAT 96
--- NOTE | 2024-04-05 09:56 | EDS_ITS ---
HPI History of Present Illness Chief Complaint: Lower Extremity Injury Narrative Narrative: 38-year-old male past medical history of diabetes, states he injured his right heel about a month ago. Over the last few days, he is having increasing pain in his right heel. Sometimes it is a dull ache, but is worse with standing. When he tried to get out of bed today, he had sharp stabbing pain in his right heel. He denies any fevers or chills, no nausea or vomiting, no color change to the area. Although he is diabetic, he usually does not see a fruit and vegetable factory worker. He presents because of worsening pain in his right heel. 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 He brought in a pair of shoes that were supposed to be like crocs that were supposed to be more supportive. He states he has already used a heel insert. [facility] Medical History PTSD (post-traumatic stress disorder) Left hip pain RUQ pain HTN (hypertension) Injury of meniscus of knee Home Medications ?Medication ?Instructions ?Recorded ?Last Taken ?Type hydrochlorothiazide 25 mg tablet 25 mg PO DAILY 05/30/20 Unknown History lisinopril 40 mg tablet 40 mg PO DAILY 05/30/20 Unknown History pantoprazole 40 mg tablet,delayed 40 mg PO DAILY #30 tabs 08/07/21 Unknown Rx release (Protonix) sertraline 100 mg tablet 100 mg PO DAILY 07/28/22 Unknown History sertraline 50 mg tablet 50 mg PO DAILY 07/28/22 Unknown History trazodone 50 mg tablet 50 mg PO DAILY 07/28/22 Unknown History budesonide 3 mg 3 mg PO TID #270 ea 02/05/23 Unknown Rx capsule,delayed,extended release doxycycline hyclate 100 mg capsule 100 mg PO BID #28 caps 02/05/23 Unknown Rx glipizide 5 mg tablet, extended 5 mg PO DAILY 02/05/23 Unknown History release 24 hr Allergy/AdvReac Type Severity Reaction Status Date / Time No Known Allergies Allergy Verified 05/12/23 14:20 Family History Grandfather Throat cancer Surgical History (Updated 04/05/24 @ 10:20 by Aura Cortés) History of hip replacement H/O left knee surgery Social History Smoking Status: Former smoker alcohol intake: current alcohol intake frequency: a few times a week substance use type: does not use ROS ROS ED ROS Narrative Constitutional: No fever, no chills. HEENT: No sore throat. No neck pain. No loss of vision. No rhinorrhea. Cardiovascular: No chest pain. No palpitations. No pedal edema. Respiratory: No cough, no shortness of breath. Abdominal: No abdominal pain. No nausea. No vomiting. Genitourinary: No dysuria. No hematuria. Musculoskeletal: No myalgias. Positive right heel pain. Worse with standing. Neurologic: No headaches. No dizziness. No lightheadedness. Skin: No rash. No change in color. Psychiatric: No depression. No anxiety. EXAM Physical Exam Narrative Exam Narrative: Afebrile. Vital signs noted. Regular rate and rhythm. Lungs clear to auscultation bilaterally. Abdomen soft and nontender. Inspection of the right foot reveals no evidence of erythema. He has a palpable dorsalis pedis pulse and good capillary refill of his toes. There is mild tenderness to palpation on the plantar fascia of the right foot especially at the insertion on the calcaneus. No palpable Achilles tendon deficit. Able to plantarflex and dorsiflex right foot. Const Vital Signs: 04/05/24 09:44 04/05/24 10:19 Temperature 96.3 F L Temperature Source Temporal Pulse Rate 89 Respiratory Rate 16 Blood Pressure 212/101 H 148/87 H Blood Pressure Mean 138 107 Pulse Ox 96 Oxygen Delivery Method Room Air MDM MDM MDM Narrative Medical decision making narrative: Differential diagnosis includes but not limited to plantar fasciitis versus foot sprain versus foot fracture/calcaneal fracture. I have very low suspicion for DVT because he has pinpoint tenderness and no circumferential swelling. X-rays were obtained of the right foot and 3 views and interpreted by myself independently. He was placed in a postoperative shoe and referred to podiatry as well. I feel he can take [id number] analgesics. Of note, he did have elevated blood pressure in triage, but is asymptomatic with it. He did state that he had not taken his blood pressure medication this morning, repeat blood pressure is 148/87. X-rays of the right foot interpreted by myself independently in 3 views, shows no evidence of an acute fracture. I reviewed the radiology report which confirms my independent interpretation. At this point in time, I feel he can be discharged to follow-up with podiatry. He states he has to get this cleared through the [facility] before he sees Dr. Mansfield. He can also follow-up with the fruit and vegetable factory worker at the [facility]. He was given a note to wear the postoperative shoe at work while standing and walking. He will take this note to the workplace today to see if he can perform light duty as he is required to wear steel toed boots. Return instructions were reviewed. Disposition is discharged home in stable condition. History & Record Review Discussion w/independent historian: Patient Radiography X-Ray: Read by ED Physician and No Fracture Diagnostic Testing: Clinical Impression(s) from Imaging Studies Foot X-Ray 04/05/24 10:00 IMPRESSION: Plantar spur. Electronically Signed: Dylan Eastman MD at 10:22 EDT , Discharge Plan Triage Chief Complaint: Lower Extremity Injury ED Provider: Frederick Egan Dx/Rx/DC Orders Clinical Impression: Plantar fasciitis of right foot, Pain of right heel Instructions: ED Plantar Fasciitis Prescriptions: No Action sertraline 50 mg tablet 50 mg PO DAILY sertraline 100 mg tablet 100 mg PO DAILY Patient Comments: Take with 50mg trazodone 50 mg tablet 50 mg PO DAILY glipizide 5 mg tablet extended release 24hr 5 mg PO DAILY budesonide 3 mg capsule,delayed,extend.release 3 mg PO TID Qty: 270 1RF doxycycline hyclate 100 mg capsule 100 mg PO BID Qty: 28 1RF hydrochlorothiazide 25 MG tablet 25 mg PO DAILY lisinopril 40 MG tablet 40 mg PO DAILY pantoprazole [Protonix] 40 mg tablet,delayed release (DR/EC) 40 mg PO DAILY Qty: 30 0RF Stand Alone Forms: Work Status Form Primary Care Provider: Jessica Nicole Referrals: Ash Mansfield DPM [Med Staff - Active Staff] - 1 Week if not improving Jessica Nicole, [employer] [Primary Care Provider] - 1 Week if not improving Activity Restrictions/Additional Instructions: Take [id number] medications for analgesia. Wear your postoperative shoe when standing or walking. You should wear it at work as well. Follow-up with podiatry, or fruit and vegetable factory worker at the [employer]. Print Language: [place]ian Disposition Disposition: Home, Self Care
--- NOTE | 2024-04-05 10:00 | RAD_ITS ---
STUDY: X-RAY - RIGHT FOOT CLINICAL: Male, 38 years old. Heel pain TECHNIQUE: 3 view(s) of the foot. COMPARISON: None. FINDINGS: There is a plantar calcaneal spur. Normal visualized subtalar, talonavicular, calcaneocuboid, tarsal and tarsometatarsal articulations. Normal metatarsi. Normal metatarsophalangeal joint of the great toe. Normal tibial and fibular sesamoid bones. Normal interphalangeal joint of the great toe. Normal phalanges of the great toe. Normal second through fifth metatarsophalangeal joints. Normal interphalangeal joints and phalanges of the lesser toes. The soft tissue structures are unremarkable. RAD/Foot min 3 Views IMPRESSION: Plantar spur. Electronically Signed: Dylan Eastman MD at 10:22 EDT ,
[2024-04-05 10:19] VITALS: BP 148/87
== END 2024-04-05 10:42 | disposition home or self-care (01) ==
LOC: ED 10:10
PROVIDERS: Emergency Provider Emergency Medicine; PCP Nurse Practitioner Family; Visit Provider Emergency Medicine
DX: M72.2 Plantar fascial fibromatosis (principal); E11.9 Type 2 diabetes mellitus without complications; I10 Essential (primary) hypertension; Z79.84 Long term (current) use of oral hypoglycemic drugs; Z79.899 Other long term (current) drug therapy; Z87.891 Personal history of nicotine dependence
CPT/HCPCS: 73630; 99282

== ENCOUNTER 2025-03-03 11:18 | Emergency (ER) | payer OTHER, SELFPAY ==
[2025-03-03 11:19] VITALS: BP 185/96; PULSE 80; RESP 24; TEMP 36.4; O2SAT 93
--- OUTSIDE RECORDS SUMMARY | 2025-03-03 11:52 | XMS RPT_ITS | CCD ---
Author Organization [facility] Care Team Providers Care Cake Knocker Name Role Phone SEAN, RAMY M Unavailable Unavailable SEAN, RAMY M Unavailable Unavailable SHERMANLAINA S Unavailable Unavailable SIMONS, BLAYNE W Unavailable Unavailable SEAN, RAMY M Unavailable Unavailable SEAN, RAMY M Unavailable Unavailable SEAN, RAMY M Unavailable Unavailable SEAN, RAMY M Unavailable Unavailable SEAN, RAMY M Unavailable Unavailable SEAN, RAMY M Unavailable Unavailable KEL SOSA Unavailable Unavailable SEAN, RAMY M Unavailable Unavailable Eran Canchola MD Primary Care Provider Eran Canchola MD Primary Care Provider Jessica Howe Primary Care Provider LUDMILA ZULETA Admitting Unavailable LUDMILA ZULETA Attending Unavailable JESSICA OLIVIA~[id number] Pr imary Care Unavailable LUDMILA BELTRAN Consulting Unavailable LUDMILA BELTRAN Consulting Unavailable KEL MOSQUERA Referring Unavailable JESSICA OLIVIA~[phone] Pr imary Care Unavailable Dr. Orlin Canchola Referring Provider [phone] Dr. Gerber Krishnamurthy Attending Provider [phone] NP. Jessica Howe Primary Care Provider Dr. Orlin Farr Referring Provider Dr. Gerber Krishnamurthy Attending Provider [phone] NP. Jessica Howe Primary Care Provider Jessica Howe CNP Primary Care Provider [phone] JESSICA HOWE NP Consulting Unavailable CSERNYIK, BLAYNE DO Attending Unavailable CSERNYIK, BLAYNE DO Primary Care Unavailable CSERNYIK, BLAYNE DO Admitting Unavailable JESSICA HOWE APPLICATION RELEASE MANAGER Referring Unavailable PROVIDER, UNKNOWN Consulting Unavailable Friend, Gerber Attending Unavailable Ungerer, Primary Care Unavailable Ungerer, Referring Unavailable Friend, Gerber Attending Unavailable Ungerer, Primary Care Unavailable Ungerer, Referring Unavailable Frederick Egan Attending Unavailable Ungerer, Primary Care Unavailable Ungerer Jessica RAMOS Primary Care Provider [phone] Eran Canchola MD Primary Care Provider Larry Rach RAMOS Primary Care Provider FANNY WIGGINS Referring Unavailable [facility] Primary Care Unavailable [facility] Unavailable FANNY WIGGINS Attending Unavailable JESSICA HOWE Primary Care Unavailable Allergies Allergy Classification Reported Allergen(s) Allergy Type Date of Onset Reaction(s) Facility (1 source) 11/18/2018 (-) MRSA SCREEN NARES; Translations: [11/18/2018 (-) MRSA SCREEN NARES] Propensity to adverse reactions (disorder) [facility] Repository Medications Current Medications Medication Drug Class(es) Dates Sig (Normalized) Sig (Original) acetaminophen 500 mg oral tablet (2 sources) Start: 08-19-2022 End: 08-26-2022 take 2 tablets by mouth three times daily acetaminophen (TYLENOL) 500 mg tablet Take 2 tablets (1,000 mg total) by mouth 3 (three) times a day for 7 days. Do not exceed 3,000 mg daily limit. 50 tablet 0 08/19/2022 08/26/2022 Active take 500-1000 mg by mouth every six hours as needed acetaminophen (TYLENOL) 500 mg tablet Ta ke 1-2 tablets (500-1,000 mg total) by mouth every 6 (six) hours if needed (pain). 0 Suspended acetaminophen 325 mg / HYDROcodone bitartrate 5 mg oral tablet (6 sources) Opioid Agonist Start: 04-01-2021 take 1 tablet by mouth every six hours as needed Hydrocodone-Acetaminophen Active 1 TABLET PO EVERY 6 HOURS NEEDED 10 April 01, 2021 [id number] 200 actuat albuterol 0.09 mg/actuat metered dose inhaler (15 sources) beta2-Adrene rgic Agonist Start: 11-17-2023 End: 11-17-2023 albuterol 2.5 mg /3 mL (0.08 3 %) 2.5 mg (PROVENTIL) Start: 05-20-2023 End: 11-17-2023 take 2 puff(s) by inhalation every four hours as needed albuterol HFA (VENTOLIN HFA) 90 mcg/actuation inhaler Indications: Wheezing Inhale 2 Puffs as instructed every 4 hours as needed. 8 g 11/17/2023 Active Start: 03-31-2022 End: 05-20-2023 take 2 puff(s) by inhalation every four hours as needed albuterol HFA (VENTOLIN HFA) 90 mcg/actuation inhaler Inhale 2 Puffs as instructed every 4 hours as needed. 1 Inhaler 1 03/31/2022 05/20/2023 Discontinued Comment on above: Inhale 2 Puffs as in structed every 4 hours as needed. aspirin 81 mg chewable tablet (1 source) Platelet Aggregation Inhibitor, Nonsteroidal Anti-inflammatory Drug Start: 09-03-20 End: 10-01-19 take 1 tablet by mouth twice daily aspirin 81 mg chewable tablet Chew 1 tablet (81 mg total) 2 (two) times a day for 28 days. Aspirin 81 mg , 1 tab PO BID for 6 weeks, Disp appropriate quantity. If patient is prescribed Arixtra/Lovenox/Xar elto, do not begin Aspirin until that medication is finished, then only take Aspirin for 4 weeks. 56 each 0 09/03/2022 10/01/2022 Active betamethasone 0.5 mg/ml / clotrimazole 10 mg/ml topical cream (1 source) Azole Antifungal, Corticosteroid Start: 07-19-20 End: 08-18-20 23 clotrimazole-betame thasone (LOTRISONE) cream Indications: Tinea cruris , Paraphimosis Apply to affected area two times a day. 45 g 0 07/19/2023 08/18/2023 Active Comment on above: Apply to affected ar ea two times a day. budesonide 3 mg delayed release oral capsule (15 sources) Corticosteroid Start: 02-06-20 take 1 capsule by mouth three times daily, then take 1 capsule by mouth every twenty-four hours budesonide, enteric coated (ENTOCORT EC) 3 mg 24 hr capsule Take 3 mg by mouth three times daily. 02/05/2023 Active Start: 10-16-2022 take 3 mg by mouth t hree times daily Budesonide Active 3 MG PO THREE TIMES A DAY October 16, 2022 1:00am Comment on above: Take 3 mg by mouth t hree times daily. busPIRone hydrochloride 10 mg oral tablet (4 sources) Start: 10-22-19 busPIRone (BUSPAR) 10 mg tablet 10/22/2023 Active celecoxib 200 mg oral capsule (1 source) Nonsteroidal Anti-inflammatory Drug Start: 08-19-20 End: 09-18-19 take 1 capsule by mouth once daily celecoxib (CeleBREX) 200 mg capsule Take 1 capsule (200 mg total) by mouth 1 (one) time each day. If prior authorization is required, do not fill. 30 capsule 0 08/19/2022 09/18/2022 Active cephalexin 500 mg oral capsule (2 sources) Cephalosporin Antibacterial Start: 06-30-20 End: 07-10-20 take 1 capsule by mouth twice daily cephALEXin (KEFLEX) 500 mg capsule Take 1 capsule by mouth two times a day for 10 days. 20 capsule 0 2023 07/10/2023 Active Start: 08-19-2022 End: 08-20-2022 take 1 capsule by mouth every eight hours cephalexin (KEFLEX) 500 mg capsule Take 1 capsule (500 mg total) by mouth every 8 (eight) hours for 10 days. 30 each 0 08/19/2022 08/20/2022 Discontinued (Reorder) Comment on above: Take 1 capsule by [facility] two times a day for 10 days. CPAP (19 sources) Start: 11-27-2019 CPAP Initiate Auto PAP @ 11-20 cm of water with humidification. Mask (per patient preference) optional chin strap (if indicated) , filters, tubing, humidifier and lifetime supplies. 1 Device 11/27/2019 Active Start: 11-27-2019 CPAP Initiate Auto PAP @ 11-20 cm of water with humidification. Mask (per patient preference) optional chin strap (if indicated) , filters, tubing, humidifier and lifetime supplies. 1 Device 0 11/27/2019 Active Comment on above: Initiate Auto PAP @ 11-20 cm of water with humidification. Mask (per patient preference) optional chin strap (if indicated) , filters, tubing, humidifier and lifetime supplies. doxycycline hyclate 100 mg oral tablet (1 source) Tetracycline-class Drug Start: 01-18-20 End: 01-28-20 take 1 tablet by mouth twice daily doxycycline (VIBRA-TABS) 100 mg tablet Indications: Wound cellulitis Take 1 tablet by mouth two times a day for 10 days. 20 tablet 01/17/2025 01/27/2025 Active glipiZIDE 5 mg oral tablet (11 sources) Sulfonylurea take 2 tablets by mouth once daily glipiZIDE (GLUCOTROL) 5 mg tablet Take 10 mg by mouth once daily. 10mg Active take 1 tablet by mouth once david y glipiZIDE (GLUCOTROL) 5 mg tablet Take 5 mg by mouth once daily. Active Comment on above: Take 5 mg by mouth o nce daily. hydroCHLOROthiazide 25 mg oral tablet (20 sources) Thiazide Diuretic Start: 2019 End: 2022 take 1 tablet by mouth once daily hydroCHLOROthiazide (HYDRODIURIL, ESIDRIX) 25 mg tablet Indications: Hypertension, unspecified type Take 1 tablet by mouth once daily. 90 tablet 1 03/31/2022 Active Comment on above: Take 1 tablet by susanna th once daily. hydroCHLOROthiazide 12.5 mg / lisinopril 20 mg oral tablet (3 sources) Thiazide Diuretic, Angiotensin Converting Enzyme Inhibitor Start: 2023 lisinopril-hydroCHLOROth iazide (ZESTORETIC) 20-12.5 mg per tablet Take by mouth. 04/14/2024 Active lisinopril 40 mg oral tablet (20 sources) Angiotensin Converting Enzyme Inhibitor Start: 2019 End: 2022 take 1 tablet by mouth once daily lisinopril (ZESTRIL, PRINIVIL) 40 mg tablet Indications: Hypertension, unspecified type Take 1 tablet by mouth once daily. 90 tablet 1 03/31/2022 Active Comment on above: Take 1 tablet by susanna th once daily. mupirocin 0.02 mg/mg topical ointment (2 sources) RNA Synthetase Inhibitor Antibacterial Start: 2024 End: 2024 mupirocin (BACTROBAN) 2 % ointment Indications: Wound cellulitis Apply 1 application to affected area three times a day for 10 days. 15 g 01/17/2025 01/27/2025 Active mupirocin (BACTR OBAN) 2 % ointment Apply 1 application to each nostril 2 (two) times a day. 0 Suspended nystatin [id number] unt/ml topical cream (2 sources) Polyene Antifungal Start: 06-29-2023 End: 07-13-2023 nystatin (MYCOSTATIN) cream Apply to affected area two times a day for 14 days. 30 g 0 06/29/2023 07/13/2023 Active Comment on above: Apply to affected ar ea two times a day for 14 days. ondansetron 4 mg oral tablet (1 source) Serotonin-3 Receptor Antagonist Start: 08-19-2022 End: 08-26-2022 take 1 tablet by mouth every eight hours for nausea ondansetron (ZOFRAN) 4 mg tablet Take 1 tablet (4 mg total) by mouth every 8 (eight) hours if needed for nausea or vomiting for up to 7 days. 20 tablet 0 08/19/2022 08/26/2022 Active oxyCODONE hydrochloride 5 mg oral tablet (1 source) Opioid Agonist Start: 08-19-2022 End: 08-26-2022 oxyCODONE (ROXICODONE) 5 mg immediate release tablet Take 1-2 tablets (5-10 mg total) by mouth every 4 (four) hours if needed for moderate pain or severe pain for up to 7 days. Dx: Z96.6 Max Daily Amount: 60 mg 40 tablet 0 08/19/2022 08/26/2022 Active OZEMPIC 0.25 mg or 0.5 mg (2 mg/3 mL) pen (4 sources) Start: 10-13-2023 OZEMPIC 0.25 m g or 0.5 mg (2 mg/3 mL) pen 10/13/2023 Active Start: 10-13-2023 OZEMPIC 0.25 m g or 0.5 mg (2 mg/3 mL) pen pantoprazole 40 mg delayed release oral tablet (6 sources) Proton Pump Inhibitor Start: 08-07-2021 take 1 tablet by mouth once daily Pantoprazole (Protonix) 40 mg tablet,delayed release (DR/EC) Active 40 MG PO DAILY August 07, 2021 1:00am polymyxin b [id number] unt/ml / trimethoprim 1 mg/ml ophthalmic solution (1 source) Dihydrofolate Reductase Inhibitor Antibacterial, Polymyxin-class Antibacterial Start: 06-15-2022 End: 06-25-2022 take 1 drop(s) into the eye(s) every three hours trimethoprim-polymy oracio (POLYTRIM) 10,000 unit- 1 mg/mL ophthalmic solution Indications: Acute conjunctivitis of both eyes, unspecified acute conjunctivitis type Use 1 Drop in both eyes every 3 hours for 10 days. 10 mL 1 06/15/2022 06/25/2022 Active Comment on above: Use 1 Drop in both e yes every 3 hours for 10 days. prazosin 1 mg oral capsule (3 sources) alpha-Adrenergic Emilia Start: 07-05-2024 prazosin (MINIPRESS) 1 mg cap Take 1 mg by mouth. 07/05/2024 Active predniSONE 20 mg oral tablet (3 sources) Start: 11-17-2023 End: 11-20-2023 take 1 tablet by mouth once daily at mealtime predniSONE (DELTASONE) 20 mg tablet Indications: SOB (shortness of breath) , Wheezing Take 1 tablet by mouth once daily for 3 days. Take daily with food. 3 tablet 0 11/17/2023 11/20/2023 Active Start: 05-20-2023 End: 05-23-2023 take 1 tablet by mouth once daily at mealtime predniSONE (DELTASONE) 20 mg tablet Indications: Subacute cough , Wheezing Take 1 tablet by mouth once daily for 3 days. Take daily with food. 3 tablet 0 05/20/2023 05/23/2023 Active Start: 04-09-2021 End: 04-14-2021 take 1 tablet by mouth once daily predniSONE (DELTASONE) 20 mg tablet Indications: Left hip pain Take 1 tablet by mouth once daily. 5 tablet 04/09/2021 04/14/2021 Discontinued (Course of therapy completed) Comment on above: Take 1 tablet by susanna once daily for 3 days. Take daily with food. QUEtiapine 50 mg oral tablet (4 sources) Atypical Antipsychotic Start: 10-22-19 QUEtiapine (SEROQUEL) 50 mg tablet 10/22/2023 Active rivaroxaban 10 mg oral tablet (4 sources) Factor Xa Inhibitor Start: 08-19-20 End: 09-02-20 rivaroxaban (XARELTO) 10 mg tablet Take 10 mg by mouth. 08/19/2022 Active rosuvastatin calcium 20 mg oral tablet (3 sources) HMG-CoA Reductase Inhibitor Start: 04-14-20 take 1 tablet by mouth once daily rosuvastatin (CRESTOR) 20 mg tablet Take 1 tablet by mouth once daily. 04/14/2024 Active sertraline 50 mg oral tablet (20 sources) Serotonin Reuptake Inhibitor Start: 07-28-20 take 50 mg by mouth once daily Sertraline Active 50 MG PO DAILY July 28, 2022 1:00am Start: 11-25-2021 End: 06-23-2022 take 1 tablet by mouth once daily sertraline (ZOLOFT) 100 mg tablet Indications: Anxiety with depression Take 1 tablet by mouth once daily. 90 tablet 1 06/23/2022 Active take 1.5 tablets by mouth once daily sertraline (ZOLOFT) 100 mg tablet Take 1.5 tablets (150 mg total) by mouth 1 (one) time each day. 0 Suspended Comment on above: Take 1 tablet by susanna th once daily. sucralfate 1000 mg oral tablet (6 sources) Aluminum Complex Start: 1 take 1 tablet by mouth every six hours Sucralfate (Carafate) 1 gram tablet Active 1 GM PO EVERY 6 HOURS 56 August 07, 2021 1:00am traMADol hydrochloride 50 mg oral tablet (1 source) Opioid Agonist Start: 2 End: 2 take 50-100 mg by mouth every six hours as needed traMADoL (ULTRAM) 50 mg tablet Take 1-2 tablets (50-100 mg total) by mouth every 6 (six) hours if needed for moderate pain for up to 7 days. Dx: Z96.6 Max Daily Amount: 400 mg 40 tablet 0 08/19/2022 08/26/2022 Active traZODone hydrochloride 50 mg oral tablet (20 sources) Serotonin Reuptake Inhibitor Start: take 50 mg by mouth once daily Trazodone Active 50 MG PO DAILY July 28, 2022 1:00am Start: 10-22-2021 End: 06-23-2022 take 1 tablet by mouth once daily at bedtime traZODone (DESYREL) 50 mg tablet Indications: Chronic insomnia Take 1 tablet by mouth daily at bedtime. 30 tablet 01/19/2022 06/23/2022 Discontinued Comment on above: Take 1 tablet by susanna daily at bedtime. Take 50 mg by mouth daily at bedtime. Completed/Discontinued Medications Medication Drug Class(es) Dates Sig (Normalized) Sig (Original) cholecalciferol 1.25 mg oral capsule (20 sources) Vitamin D Start: 10-23-2021 End: 05-20-2023 take 1 capsule by mouth every week cholecalciferol, Vitamin D3, (VITAMIN D3) 1,250 mcg (50,000 unit) cap capsule Take 1 capsule by mouth one time a week. 12 capsule 10/23/2021 05/20/2023 Discontinued Start: 05-30-2020 take 2000 [IU] by mo [facility] once daily Cholecalciferol (Vitamin D3) Active 2000 UNIT PO DAILY May 30, 2020 12:00am End: 05-20-2023 take 1 tablet by mouth once daily cholecalciferol (VITAMIN D-3) 2,000 unit tablet Take 2,000 Units by mouth once daily. 05/20/2023 Discontinued Comment on above: Take 1 capsule by [facility] one time a week. Take 2,000 Units by mouth once daily. cyclobenzaprine hydrochloride 10 mg oral tablet (3 sources) Muscle Relaxant Start: 01-20-20 End: 02-04-20 take 1 tablet by mouth every twelve hours as needed cyclobenzaprine (FLEXERIL) 10 mg tablet Take 1 tablet by mouth twice daily as needed for muscle spasm for up to 15 days. 30 tablet 01/19/2022 02/03/2022 Comment on above: Take 1 tablet by susanna twice daily as needed for muscle spasm for up to 15 days. fluconazole 150 mg oral tablet (5 sources) Azole Antifungal Start: 06-29-20 End: 11-17-19 fluconazole (DIFLUCAN) 150 mg tablet Take 1 tablet every other day for 2 weeks. 6 tablet 06/29/2023 11/17/2023 Discontinued (Course of therapy completed) Comment on above: Take 1 tablet every other day for 2 weeks. 12 hr hyoscyamine sulfate 0.375 mg extended release oral tablet (1 source) Start: 06-21-20 End: 04-14-20 take 1 tablet by mouth twice daily hyoscyamine SR (SYMAX-SR) 0.375 mg 12 hr tablet Indications: Bilateral upper abdominal pain Take 1 tablet by mouth twice daily. 60 tablet 6 06/21/2020 04/14/2021 Discontinued (Course of therapy completed) Miscellaneous Medical Supply misc (1 source) Start: 08-28-20 End: 04-14-20 Miscellaneous Medical Supply misc Indications: Lymphedema of both lower extremities Compression wraps to be used daily Dx: lymphedema 2 Each 1 08/28/2019 04/14/2021 Discontinued (Course of therapy completed) multivitamin tablet (10 sources) Start: 10-13-19 End: 05-20-20 take 1 tablet by mouth once daily multivitamin tablet Take 1 tablet by mouth once daily. 10/13/2018 05/20/2023 Discontinued Start: 10-13-2018 End: 05-20-2023 take 1 tablet by mouth once daily multivitamin tablet Take 1 tablet by mouth once daily. 0 10/13/2018 05/20/2023 Discontinued Start: 10-13-2018 take 1 tablet by susanna th once daily multivitamin tablet Take 1 tablet by mouth once daily. 0 10/13/2018 Active Comment on above: Take 1 tablet by susanna th once daily. naproxen 500 mg oral tablet (3 sources) Nonsteroidal Anti-inflammatory Drug Start: 2 End: 2 take 1 tablet by mouth every twelve hours as needed naproxen (NAPROSYN) 500 mg tablet Take 1 tablet by mouth twice daily as needed for up to 15 days. Take with food. 30 tablet 1 01/19/2022 02/03/2022 Comment on above: Take 1 tablet by susanna th twice daily as needed for up to 15 days. Take with food. omeprazole 40 mg delayed release oral capsule (1 source) Proton Pump Inhibitor Start: 0 End: take 1 capsule by mouth twice daily before mealtime omeprazole (PRILOSEC) 40 mg capsule Take 1 capsule by mouth twice daily before meals. 60 capsule 5 06/21/2020 04/14/2021 Discontinued (Course of therapy completed) Problems Active Problems Problem Classification Problem Date Documented Da te Episodic/Chronic Abdominal pain (7 sources) Left upper quadrant pain; Translations: [Left upper quadrant pain] Episodic Alcohol-related disorders (18 sources) Binge drinker; Translations: [Alcohol abuse, uncomplicated] Onset: 10-22-2021 10-22-2021 Chronic Anxiety disorders (20 sources) Posttraumatic stress disorder; Translations: [Post-traumatic stress disorder, unspecified] 11-28-2018 Chronic Essential hypertension (20 sources) Hypertensive disorder; Translations: [Essential (primary) hypertension] 09-11-2019 Chronic Inflammation; infection of eye (except that caused by tuberculosis or sexually transmitteddisease) (1 source) Acute conjunctivitis of bilateral eyes; Translations: [Unspecified acute conjunctivitis, bilateral] Episodic Malaise and fatigue (1 source) Fatigue; Translations: [Other fatigue] Episodic Miscellaneous mental health disorders (2 sources) Chronic insomnia; Translations: [Psychophysiologic insomnia] Chronic Mycoses (2 sources) Mycosis; Translations: [Candidiasis, unspecified] 2023 Episodic Noninfectious gastroenteritis (1 source) Gastroenteritis; Translations: [Noninfective gastroenteritis and colitis, unspecified] Episodic Nonspecific chest pain (6 sources) Chest pain; Translations: [Chest pain, unspecified] 11-18-2021 Episodic Nutritional deficiencies (19 sources) Vitamin D deficiency; Translations: [Vitamin D deficiency, unspecified] 03-19-2020 Chronic Osteoarthritis (3 sources) Osteoarthritis of left hip joint; Translations: [Unilateral primary osteoarthritis, left hip] Onset: 08-19-2022 Chronic Other connective tissue disease (1 source) History of total hip arthroplasty; Translations: [Presence of left artificial hip joint] Onset: 08-19-2022 08-19-2022 Chronic Other connective tissue disease (6 sources) Pain in lower limb; Translations: [Pain in right leg] 04-01-2021 Episodic Other diseases of veins and lymphatics (19 sources) Lymphedema of bilateral lower limbs; Translations: [Lymphedema, not elsewhere classified] Onset: 09-13-2019 09-13-2019 Chronic Other gastrointestinal disorders (1 source) Diarrhea; Translations: [Diarrhea, unspecified] Episodic Other gastrointestinal disorders (5 sources) Loose stool; Translations: [Other fecal abnormalities] 10-16-2022 Episodic Other gastrointestinal disorders (5 sources) Other fecal abnormalities; Translations: [Abnormal feces] 10-16-2022 Episodic Other infections; including parasitic (1 source) Personal history of other infectious and parasitic diseases; Translations: [History of COVID-19] Episodic Other injuries and conditions due to external causes (1 source) Unspecified injury of unspecified lower leg, initial encounter; Translations: [Unspecified injury of unspecified lower leg, initial encounter] Onset: 04-26-2024 Episodic Other liver diseases (5 sources) Large liver; Translations: [Hepatomegaly, not elsewhere classified] 10-16-2022 Episodic Other liver diseases (5 sources) Hepatomegaly, not elsewhere classified; Translations: [Hepatomegaly] 10-16-2022 Episodic Other lower respiratory disease (2 sources) Rib pain; Translations: [Pleurodynia] Episodic Other lower respiratory disease (3 sources) Dyspnea; Translations: [Shortness of breath] Episodic Other lower respiratory disease (4 sources) Cough; Translations: [Subacute cough] 05-20-2023 Episodic Other lower respiratory disease (2 sources) Wheezing; Translations: [Wheezing] 05-20-2023 Episodic Other male genital disorders (1 source) Acquired buried penis; 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] 07-19-2023 Chronic Other male genital disorders (1 source) Paraphimosis; Translations: [Paraphimosis] 07-19-2023 Episodic Other non-traumatic joint disorders (1 source) Hip pain; Translations: [Pain in left hip] 04-09-2021 Episodic Other nutritional; endocrine; and metabolic disorders (20 sources) Body mass index 40+ - severely obese; Translations: [Morbid (severe) obesity due to excess calories] 11-28-2018 Chronic Other nutritional; endocrine; and metabolic disorders (1 source) Morbid obesity; Translations: [Morbid (severe) obesity due to excess calories] Chronic Other screening for suspected conditions (not mental disorders or infectious disease) (1 source) Patient encounter status; Translations: [Encounter for screening for other disorder] 07-19-2023 Episodic Other skin disorders (1 source) Eruption; Translations: [Rash and other nonspecific skin eruption] 06-29-2023 Episodic Other skin disorders (1 source) Rash of genitalia; Translations: [Rash and other nonspecific skin eruption] 2023 Episodic Other upper respiratory infections (7 sources) Viral upper respiratory tract infection; Translations: [Acute upper respiratory infection, unspecified] 09-21-2020 Episodic Residual codes; unclassified (19 sources) Obstructive sleep apnea syndrome; Translations: [Obstructive sleep apnea (adult) (pediatric)] 03-19-2020 Chronic Residual codes; unclassified (1 source) Procedure not done; Translations: [Procedure and treatment not carried out, unspecified reason] 09-07-2024 Episodic Skin and subcutaneous tissue infections (3 sources) Cellulitis; Translations: [Cellulitis, unspecified] Onset: 01-17-2025 2023 Episodic Superficial injury; contusion (3 sources) Contusion of left forearm; Translations: [Contusion of left forearm, initial encounter] Onset: 01-17-2025 01-17-2025 Episodic Viral infection (1 source) Disease caused by 2019-nCoV; Translations: [COVID-19] Episodic Past or Other Problems Problem Classification Problem Date Documented Da te Episodic/Chronic Other nervous system disorders (1 source) Anesthesia of skin; Translations: [ANESTHESIA OF SKIN] Onset: 07-12-2017 Episodic Other non-traumatic joint disorders (5 sources) Pain in left knee; Translations: [Pain in left elbow] Onset: 07-02-2017 Episodic Unclassified (1 source) Edema, unspecified; Translations: [EDEMA UNSPECIFIED] Onset: 07-12-2017 Episodic Unclassified (1 source) PAIN IN LEFT KNEE; Translations: [PAIN IN LEFT KNEE] Onset: 07-07-2017 Unclassified (2 sources) Contusion of left forearm 01-17-2025 Results Test Name Value Interpretation Reference Range Facility [facility] 01-17-2025 CN Office Visit ([facility] ) NEIL GARCES ([id number]) 1985 M Date Time Provider Department 01/17/25 9:30 AM FANNY [facility] During your visit today, we recorded the following information about you: Temperature Pulse Respiration Blood pressure 86 degrees 86/minute 20/minute 128/82 Weight 226 kg Fanny Wiggins PA-C 01/17/2025 10:58 AM Signed This note was created using Tradierriter. Subjective Neil Garces is a 39 year old male. Patient is a 39-year-old male who complains of redness, pain and swelling to his left forearm secondary to a blunt trauma injury that the patient sustained 2 days ago. Patient reports that he was working in his yard when a large tree branch struck his left forearm. Patient reports that he sustained to his facial abrasions and is noted increased redness and swelling to the sites. Patient reports no bleeding, serous or purulent fluid to the areas. Patient describes diffuse pain and swelling to his left forearm. 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 Patient denies pain or injury to his left elbow and wrist. Patient is diabetic. Arm Injury Review of Systems Musculoskeletal: Pain and Swelling Left Forearm Skin: Positive for wound. Redness to Abrasions Left Forearm All other systems reviewed and are negative. Objective BP 128/82 Pulse 86 Temp (!) 30 ?C (86 ?F) Resp 20 Wt (!) 226 kg (498 lb 3.8 oz) SpO2 95% BMI 65.73 kg/m? Physical Exam Vitals and nursing note reviewed. Constitutional: Appearance: Normal appearance. He is normal weight. HENT: Head: Normocephalic and atraumatic. Nose: Nose normal. Mouth/Throat: Mouth: Mucous membranes are moist. Pharynx: Oropharynx is clear. Eyes: Extraocular Movements: Extraocular movements intact. Conjunctiva/sclera: Conjunctivae normal. Pupils: Pupils are equal, round, and reactive to light. Cardiovascular: Rate and Rhythm: Normal rate. Pulses: Normal pulses. Pulmonary: Effort: Pulmonary effort is normal. Breath sounds: Normal breath sounds. Musculoskeletal: General: Swelling, tenderness and signs of injury present. No deformity. Normal range of motion. Cervical back: Normal range of motion and neck supple. Comments: Diffuse edema is noted to the left forearm. Mild tenderness is noted with palpation. No crepitus or deformity is noted with palpation of left forearm. There are 4 discrete skin wounds noted to the posterior aspect of the left forearm. Patient states that 2 of the wounds are due to his scratching injury not related to the tree branch. There are two 0.5 cm abrasions that the patient states were caused by the tree branch contact. There is significant localized erythema noted to all 4 sites. No induration or fluctuance is noted. No bleeding, serous or purulent fluid is noted. 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 Muscle strength is 5/5. Patient demonstrates full range of motion in flexion extension to the left elbow and wrist. Skin: General: Skin is warm and dry. Capillary Refill: Capillary refill takes less than 2 seconds. Findings: Erythema present. No bruising. Neurological: General: No focal deficit present. Mental Status: He is alert and oriented to person, place, and time. Cranial Nerves: Cranial nerve deficit: .smdiag. Psychiatric: Mood and Affect: Mood normal. Behavior: Behavior normal. Thought Content: Thought content normal. Judgment: Judgment normal. Assessment and Plan Physical exam findings as noted above. X-ray left forearm is negative for acute findings as reported by the radiologist and the radiologist reports a large amount of soft tissue edema to the left forearm which is consistent with the physical exam findings. Patient was provided with prescriptions for doxycycline 100 mg and Bactroban 2% ointment. Wound care instructions were discussed. Patient was clearly advised to report to the emergency department if he notes any acute worsening of his symptoms. Additional supportive care was reviewed the patient verbalizes excellent understanding of same. CLINICAL IMPRESSION: Contusion Left Forearm; Wound Cellulitis Left Forearm ASSESSMENT/PLAN: 1. Contusion of left forearm, initial encounter - ICD9: 923.10, ICD10: S50.12XA (primary diagnosis) - XR FOREARM GENERAL 2V AP/LAT LEFT 2. Wound cellulitis - ICD9: 682.9, ICD10: L03.90 - MUPIROCIN 2 % TOPICAL OINTMENT - DOXYCYCLINE HYCLATE 100 MG TABLET MDM Amount and/or Complexity of Data Reviewed Tests in the radiology section of CPT?: ordered and reviewed Risk of Complications, Morbidity, and/or Mortality Presenting problems: low Diagnostic procedures: low Management options: justin Wiggins PA-C Allergies As of Date: 01/17/2025 (No Known Allergies) Date Reviewed: (more content not included)... Normal [facility] [place] XR FOREARM 2V AP/LAT LTon XR FOREARM 2V AP/LAT LT * * *Final Repor t* * * DATE OF EXAM: Jan 17 2025 10:05AM WOX 5341 - XR FOREARM 2V AP/LAT LT / PROCEDURE REASON: Contusion of left forearm, initial encounter * * * * Physician Interpretation * * * * EXAM(s): XR FOREARM 2V AP/LAT LT..... HISTORY: 39 years old Clinical information: Contusion of left forearm, initial encounter tree branch fell on left forearm. Lateral mid forearm pain. TECHNIQUE: Images: XR FOREARM 2V AP/LAT LT Comparison: None. RESULT: Findings: Large amount of soft tissue swelling over the midportion of the forearm No fractures or dislocations are seen. IMPRESSION: Large amount of soft tissue swelling. No fracture is seen Armored Transport Service Manager: MARIO Transcribe Date/Time: Jan 17 2025 10:23A Dictated by : RENAE LOPEZ DO This examination was interpreted and the report reviewed and electronically signed by: RENAE LOPEZ DO on Jan 17 2025 10:24AM EST [id number] Normal [facility] [place] XR Radius and Ulna - left AP and Lateralon 01-17-2025 IMPRESSION: Large amount of soft tissue swelling. No fracture is seen Armored Transport Service Manager: MARIO Transcribe Date/Time: Jan 17 2025 10:23A Dictated by : RENAE LOPEZ DO This examination was interpreted and the report reviewed and electronically signed by: RENAE LOPEZ DO on Jan 17 2025 10:24AM EST DIVISION OF RADIOLOGY * * *Final Report* * * DATE OF EXAM: Jan 17 2025 10:05AM WOX 5341 - XR FOREARM 2V AP/LAT LT / PROCEDURE REASON: Contusion of left forearm, initial encounter * * * * Physician Interpretation * * * * EXAM(s): XR FOREARM 2V AP/LAT LT..... HISTORY: 39 years old Clinical information: Contusion of left forearm, initial encounter tree branch fell on left forearm. Lateral mid forearm pain. TECHNIQUE: Images: XR FOREARM 2V AP/LAT LT Comparison: None. RESULT: Findings: Large amount of soft tissue swelling over the midportion of the forearm No fractures or dislocations are seen. DIVISION OF RADIOLOGY Provider, Rigoberto [facility] - 01/17/2025 * * *Final Report* * * DATE OF EXAM: Jan 17 2025 10:05AM WOX 5341 - XR FOREARM 2V AP/LAT LT / PROCEDURE REASON: Contusion of left forearm, initial encounter * * * * Physician Interpretation * * * * EXAM(s): XR FOREARM 2V AP/LAT LT..... HISTORY: 39 years old Clinical information: Contusion of left forearm, initial encounter tree branch fell on left forearm. Lateral mid forearm pain. TECHNIQUE: Images: XR FOREARM 2V AP/LAT LT Comparison: None. RESULT: Findings: Large amount of soft tissue swelling over the midportion of the forearm No fractures or dislocations are seen. IMPRESSION IMPRESSION: Large amount of soft tissue swelling. No fracture is seen Armored Transport Service Manager: [facility] Transcribe Date/Time: Jan 17 2025 10:23A Dictated by : RENAE LOPEZ DO This examination was interpreted and the report reviewed and electronically signed by: RENAE LOPEZ DO on Jan 17 2025 10:24AM KERRY [facility] Radiology Study observation (narrative) [facility] XR Radius and Ulna - left AP and LateralOrdered By: [facility] Provider on 01-17-2025 [facility] CNOVon 09-07-2024 CNOV [facility] NEIL GARCES ([id number]) 1985 M Date Time Provider Department 09/07/24 12:45 PM PIETRO KELLY [facility] During your visit today, we recorded the following information about you: Temperature Pulse Respiration Blood pressure 98.2 degrees 82/minute 22/minute 148/90 Weight 225.5 kg Pietro Kelly APRN.DOCUMENT IMAGING SPECIALIST 09/07/2024 12:24 PM Signed Nontoxic-appearing male presents urgent care chief plaint sinus pressure. Rates her sinus pressure 3 out of 10. Presents today due to new onset visual changes. Patient states when he is reading his vision is going blurry and black and cannot see for short period time and then patient returns. With presenting symptoms recommend be seen by ophthalmology. Will reach out to family eye doctor if unable to be seen by ophthalmology will be seen in ED. Pietro Kelly APRN.RACHEL Allergies As of Date: 09/07/2024 (No Known Allergies) Date Reviewed: 09/07/2024 Reviewed by: Pietro Kelly APRN.RACHEL - Fully Assessed Reason for Visit: Cough [28] Cmt: Sinus pressure(pt states that sinus pressure is messing with his vision making things blurry and going in and out), chest congestion x 2 days Primary Visit Diagnosis:Procedure not carried out [Z53.9] Prescriptions as of 09/07/2024 - lisinopril-hydroCHLOROt hiazide (ZESTORETIC) 20-12.5 mg per tablet Take by mouth. - prazosin (MINIPRESS) 1 mg cap Take 1 mg by mouth. - rivaroxaban (XARELTO) 10 mg tablet Take 10 mg by mouth. - rosuvastatin (CRESTOR) 20 mg tablet Take 1 tablet by mouth once daily. - albuterol HFA (VENTOLIN HFA) 90 mcg/actuation inhaler Inhale 2 Puffs as instructed every 4 hours as needed. - busPIRone (BUSPAR) 10 mg tablet - QUEtiapine (SEROQUEL) 50 mg tablet - OZEMPIC 0.25 mg or 0.5 mg (2 mg/3 mL) pen - traZODone (DESYREL) 50 mg tablet Take 50 mg by mouth daily at bedtime. - glipiZIDE (GLUCOTROL) 5 mg tablet Take 10 mg by mouth once daily. 10mg - budesonide, enteric coated (ENTOCORT EC) 3 mg 24 hr capsule Take 3 mg by mouth three times daily. - sertraline (ZOLOFT) 100 mg tablet Take 1 tablet by mouth once daily. - hydroCHLOROthiazide (HYDRODIURIL, ESIDRIX) 25 mg tablet Take 1 tablet by mouth once daily. - lisinopril (ZESTRIL, PRINIVIL) 40 mg tablet Take 1 tablet by mouth once daily. - CPAP Initiate Auto PAP @ 11-20 cm of water with humidification. Mask (per patient preference) optional chin strap (if indicated) , filters, tubing, humidifier and lifetime supplies. Meds Comments as of 03/19/2020: Drinks glass of fiber - metamucil Problem List As Of Date 09/07/2024 Noted Resolved Morbid obesity with BMI of 60.0-69.9, adult (HC* PTSD (post-traumatic stress disorder) [F43.10] Hypertension [I10] Lymphedema of both lower extremities [I89.0] 09/13/2019 AIDE (obstructive sleep apnea) [G47.33] Vitamin D deficiency [E55.9] Alcohol consumption binge drinking [F10.10] 10/22/2021 Encounter Status:Closed by PIETRO KELLY on 09/07/24 Normal [facility] [place] Emergency Department Summary on 04-05-2024 Emergency Department Summary [facility] Medical Records Department [address] [place] [address] Emergency Department Summary 04/05/24 MR#: [id number] Acct: [id number] Name: NEIL GARCES Rep #: [id number] : 1985 38 From: Frederick Egan MD PCP: TOVA Irving Status:REG ER Location: ED HPI History of Present Illness Chief Complaint: Lower Extremity Injury Narrative Narrative: 38-year-old male past medical history of diabetes, states he injured his right heel about a month ago. Over the last few days, he is having increasing pain in his right heel. Sometimes it is a d ull ache, but is worse with standing. When he tried to get out of bed today, he had sharp stabbing pain in his right heel. He denies any fevers or chills, no nausea or vomiting, no color change to the area. Although he is diabetic, he usually does not see a director digital marketing. He presents because of worsening pain in his right heel. 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 He brought in a pair of shoes that were supposed to be like crocs that were supposed to be more supportive. He states he has already used a heel insert. [facility] Medical History PTSD (post-traumatic stress disorder) Left hip pain RUQ pain HTN (hypertension) Injury of meniscus of knee Home Medications ???Medication ???Instructions ???Recorded ???Last Taken ???Type hydrochlorothiazide 25 mg tablet 25 mg PO DAILY 05/30/20 Unknown History lisinopril 40 mg tablet 40 mg PO DAILY 05/30/20 Unknown History pantoprazole 40 mg tablet,delayed 40 mg PO DAILY #30 tabs 08/07/21 Unknown Rx release (Protonix) sertraline 100 mg tablet 100 mg PO DAILY 07/28/22 Unknown History sertraline 50 mg tablet 50 mg PO DAILY 07/28/22 Unknown History trazodone 50 mg tablet 50 mg PO DAILY 07/28/22 Unknown History budesonide 3 mg 3 mg PO TID #270 ea 02/05/23 Unknown Rx capsule,delayed,extende d release doxycycline hyclate 100 mg capsule 100 mg PO BID #28 caps 02/05/23 Unknown Rx glipizide 5 mg tablet, extended 5 mg PO DAILY 02/05/23 Unknown History release 24 hr Allergy/AdvReac Type Severity Reaction Status Date / Time No Known Allergies Allergy Verified 05/12/23 14:20 Family History Grandfather Throat cancer Surgical History (Updated 04/05/24 @ 10:20 by Aura Cortés) History of hip replacement H/O left knee surgery Social History Smoking Status: Former smoker alcohol intake: current alcohol intake frequency: a few times a week substance use type: does not use ROS ROS ED ROS Narrative Constitutional: No fever, no chills. HEENT: No sore throat. No neck pain. No loss of vision. No rhinorrhea. Cardiovascular: No chest pain. No palpitations. No pedal edema. Respiratory: No cough, no shortness of breath. Abdominal: No abdominal pain. No nausea. No vomiting. Genitourinary: No dysuria. No hematuria. Musculoskeletal: No myalgias. Positive right heel pain. Worse with standing. Neurologic: No headaches. No dizziness. No lightheadedness. Skin: No rash. No change in color. Psychiatric: No depression. No anxiety. EXAM Physical Exam Narrative Exam Narrative: Afebrile. Vital signs noted. Regular rate and rhythm. Lungs clear to auscultation bilaterally. Abdomen soft and nontender. Inspection of the right foot reveals no evidence of erythema. He has a palpable dorsalis pedis pulse and good capillary refill of his toes. There is mild tenderness to palpation on the plantar fascia of the right foot especially at the insertion on the calcaneus. No palpable Achilles tendon deficit. Able to plantarflex and dorsiflex right foot. Const Vital Signs: 04/05/24 09:44 04/05/24 10:19 Temperature 96.3 F L Temperature Source Temporal Pulse Rate 89 Respiratory Rate 16 Blood Pressure 212/101 H 148/87 H Blood Pressure Mean 138 107 Pulse Ox 96 Oxygen Delivery Method Room Air MDM MDM MDM Narrative Medical decision making narrative: Differential diagnosis includes but not limited to plantar fasciitis versus foot sprain versus foot fracture/calcaneal fracture. I have very low suspicion for DVT because he has pinpoint tenderness and no circumferential swelling. X-rays were obtained of the right foot and 3 views and interpreted by myself independently. He was placed in a postoperative shoe and referred to podiatry as well. I feel he can take [id number] analgesics. Of note, he did have elevated blood pressure in triage, but is asymptomatic with it. He did state that he had not taken his blood pressure medication this morning, repeat blood pressure is 148/87. X-rays of the right foot interpreted by myself independ (more content not included)... Normal [facility] Foot min 3 Viewson 4 Foot min 3 Views [facility] Imaging Services [address] [place], [place] [id number] Foot min 3 Views MR#: [id number] Acct: [id number] Name: NEIL GARCES Rep #: [id number] : 1985 M 38 From: Dylan harrison MD PCP: APPLICATION RELEASE MANAGERBRANDIE FlynnC Status: REG ER Study: Foot min 3 Views Date of Exam: 04/05/24 Exam# [id number] Ordering [place]: [place] [id number] STUDY: X-RAY - RIGHT FOOT CLINICAL: Male, 38 years old. Heel pain TECHNIQUE: 3 view(s) of the foot. COMPARISON: None. FINDINGS: There is a plantar calcaneal spur. Normal visualized subtalar, talonavicular, calcaneocuboid, tarsal and tarsometatarsal articulations. Normal metatarsi. Normal metatarsophalangeal joint of the great toe. Normal tibial and fibular sesamoid bones. Normal interphalangeal joint of the great toe. Normal phalanges of the great toe. Normal second through fifth metatarsophalangeal joints. Normal interphalangeal joints and phalanges of the lesser toes. The soft tissue structures are unremarkable. RAD/Foot min 3 Views IMPRESSION: Plantar spur. Electronically Signed: Dylan Eastman MD at 10:22 EDT , CC: APPLICATION RELEASE MANAGER-Adrien Howe; Dr. Frederick Egan MD Armored Transport Service Manager: Signed Normal [facility] EMERGENCY REPORTon 4 EMERGENCY REPORT [facility] EMERGENCY ROOM REPORT NAME ACCOUNT SEX AGE ADMIT DISCHARGE PT MED. RECORD# NUMBER DATE DATE TYPE NEIL GARCES [id number] Dallin 38 11/19/23 11/19/23 3 J [id number] ROOM: ER DATE OF : 1985 DICTATING PHYSICIAN: Blayne Rivero NO DICTATION. Dictated By: Blayne Rivero DO 11/19/23 18:57 JOB #: [id number] Transcribed By: am 11/20/23 12:18 Electronically signed by: Dr. Blayne Rivero, 11/30/23 09:00 Page 1 of 1 NEIL GARCES Emergency Room Report Normal [facility] EMERGENCY REPORT [facility] EMERGENCY ROOM REPORT NAME ACCOUNT SEX AGE ADMIT DISCHARGE PT MED. RECORD# NUMBER DATE DATE TYPE NEIL GARCES [id number] M 38 11/19/23 11/19/23 Rita J [id number] ROOM: ER DATE OF : 1985 DICTATING PHYSICIAN: Blayne Rivero HISTORY OF PRESENT ILLNESS: This is a 38-year-old male here with chest discomfort. He states that this started on Wednesday. He had some dyspnea on exertion. He had some vague chest discomfort. He was seen at an urgent care, and he was discharged with inhalers. The patient states that he has some pain under the left breast that is kind of a dull pain, sometimes a prickly pain, sometimes tightness. He says that the pain comes and goes. He says it is fleeting, and it only lasts anywhere from 2 to 3 seconds and then goes away. It has been recurrent today. He has no neck, arm, shoulder, or jaw pain. He has had no diaphoresis with this. PAST MEDICAL HISTORY: He has a past medical history of hypertension, type 2 diabetes, and ulcerative colitis. He denies history of heart disease, CHF, or COPD. He does have a morbid obesity. PAST SURGICAL HISTORY: He has had no recent surgeries. FAMILY HISTORY: There is a family history of coronary artery disease, hypertension, and obesity. SOCIAL HISTORY: He says he is a nonsmoker at this time. He quit smoking in 2010. He says that he drinks about 4 days a week a couple of drinks. He denies creational drug use. No recent long distance travel. No leg pain, swelling, or calf tenderness. The patient states he has been having this discomfort on and off kind of fleeting over the last 3 days. PHYSICAL EXAMINATION: VITAL SIGNS: Temperature 97.7, pulse 80, respiratory rate 22, first blood pressure 171/90, and pulse oximetry 97% on room air. GENERAL APPEARANCE: He is awake, alert, and nontoxic. HEENT: Mucous membranes are pink, moist, and intact. HEART: Regular rate and rhythm. No murmur, click, gallop, or rub. LUNGS: Clear to auscultation. No cherri rales, rhonchi, or wheeze. ABDOMEN: Obese, soft, nontender, or nondistended. No masses, guarding, or rebound. EXTREMITIES: Revealed no unilateral leg pain, swelling, or calf tenderness. He does have kind of bilaterally large legs, but there is no significant pitting edema. DIAGNOSTIC DATA: The patient did have a couple of EKG's. His first EKG was at 12:58 and interpreted by me at 1300 hours. It showed a normal sinus rhythm at 79 Page 1 of 3 NEIL GARCES Emergency Room Report NEIL GARCES : 1985 beats per minute. Normal axis. KY is 180 ms, QRS 102 ms, QT 400 ms. There is an RSR prime in lead V1 consistent with incomplete right bundle branch block, but no evidence of acute ST-T change. No STEMI. A second EKG at 1427 hours, interpreted by me at 1433 hours showed normal sinus rhythm at 80 beats per minute. Normal axis. KY, QRS, and QT intervals are normal. There is no acute ST-T change. No evidence of acute ischemia. No STEMI. The patient's CBC is normal. White count is 9.9, hemoglobin 15, hematocrit 44, and platelet count is 222,000. There is no significant shift on his differential. Quantitative D-dimer is normal at 175. Sodium is 138, potassium 4.2, chloride 99, CO2 30.4, BUN 12, creatinine 0.66, calcium is normal at 9.2. Glucose is 110. AST is normal, ALT is normal, and alkaline phosphatase is normal. His bilirubin was normal. Magnesium was minimally low at 1.6. We will give him a dose of magnesium oxide orally. First troponin is normal at 17. Second troponin is normal at 21. His NT-proBNP is 36. Chest x-ray showed no obvious infiltrate, effusion, pneumothorax. No acute cardiopulmonary process. EMERGENCY DEPARTMENT COURSE AND TREATMENT: On repeat evaluation, the patient is chest pain free. He says he feels much better. DIAGNOSIS: Atypical chest pain. PLAN/DISPOSITION: I think the patient can be discharged home. He is instructed to return if acutely worse. His chest pain is very atypical. He describes it as a fleeting pain lasting 2 to 3 seconds a time. There are no other associated symptoms. The patient is encouraged to follow-up with his primary care in the next 3 to 5 days for a recheck. I have instructed the patient if he gets worse or develops increasing pain or he develops neck, arm, shoulder, jaw pain, or diaphoresis or feels worse, he should immediately return. He verbalizes understanding. The patient is discharged home in improved and stable condition. The patient is reminded to return if acutely worsen. Dictated By: Blayne Rivero DO 11/19/23 18:48 JOB #: [id number] Transcribed By: am Page 2 of 3 NEIL GARCES Emergency Room Report NEIL GARCES : 1985 11/20/23 12:19 Electronically signed by: Dr. Blayne Rivero DO 11/30/23 09:00 Page 3 of 3 NEIL GARCES Emergency Room Report Normal [facility] CBC + DIFFon 11-19-2023 Baso # 0.03 x10EE3/UL Normal 0.00 - 0.10 [facility] Comment on above: Performed By: #### 2 [id number] #### [facility],[address] [place] [address] Basophils/100 WBC (Bld) 0.3 % Normal 0.0 - 2.0 [facility] Comment on above: Performed By: #### 2 [id number] #### [facility],[address] [place] [address] CBC + DIFF Normal [facility] Comment on above: Result Comment: CBC- COMPLETE BLOOD COUNT Performed By: #### 2 [id number] #### [facility],[address] [place] [address] EO # 0.05 x10EE3/UL Normal 0.00 - 0.50 [facility] Comment on above: Performed By: #### 2 [id number] #### [address] [address] Eosinophils/100 WBC (Bld) 0.5 % Normal 0.0 - 7.0 [facility] Comment on above: Performed By: #### 2 [id number] #### [facility],[address] [place], [place] [id number] Erythrocyte distribution width (RBC) [Ratio] 13.7 % Normal 12.0 - 15.6 [facility] Comment on above: Performed By: #### 2 [id number] #### [facility],[address] [place] [address] Hematocrit (Bld) [Volume fraction] 44.7 % Normal 40.0 - 52.0 [facility] Comment on above: Performed By: #### 2 12024 #### [facility],[address] [place] [address] Hemoglobin (Bld) [Mass/Vol] 15.2 g/dL Normal 13.0 - 17.5 [facility] Comment on above: Performed By: #### 2 [id number] #### [facility],[address] [place] [address] Lymph # 1.53 x10EE3/UL Normal 0.80 - 2.80 [facility] Comment on above: Performed By: #### 2 [id number] #### [facility],[address] [place] [address] Lymphocytes/100 WBC (Bld) 15.5 % Low 20.0 - 45.0 [facility] Comment on above: Performed By: #### 2 [id number] #### [facility],[address] [place] [address] 99970 MANUAL DIFF N/A Normal [facility] Comment on above: Performed By: #### 2 89350 #### [facility],[address] [place] [address] 07323 MCH (RBC) [Entitic mass] 31 pg Normal 27 - 33 [facility] Comment on above: Performed By: #### 2 81251 #### [facility],[address] [place] [address] 06996 MCHC 34 X10 3 Normal 32 - 36 [facility] Comment on above: Performed By: #### 2 04834 #### [facility],[address] [place] [address] 77260 MCV (RBC) [Entitic vol] 90 fL Normal 81 - 98 [facility] Comment on above: Performed By: #### 2 68809 #### [facility],[address] [place] [address] 00041 [place] # 0.54 x10EE3/UL Normal 0.20 - 1.00 [facility] Comment on above: Performed By: #### 2 46640 #### [facility],[address] [place] [address] 88568 MONOS % 5.5 % Normal 0.0 - 10.0 [facility] Comment on above: Performed By: #### 2 14530 #### [facility],[address] [place] [address] 70811 Morphology Graham (Bld) [Interp] N/A Normal [facility] Comment on above: Performed By: #### 2 46325 #### [facility],[address] [place] [address] 66253 Neut # 7.71 x10EE3/UL High 1.50 - 7.10 [facility] Comment on above: Performed By: #### 2 57371 #### [facility],[address] [place] [address] 45979 Neutrophils/100 WBC (Bld) 78.2 % High 46.0 - 76.0 [facility] Comment on above: Performed By: #### 2 81748 #### [facility],[address] [place] [address] 57706 PLATELET 222 x10EE3/UL Normal 150 - 450 [facility] Comment on above: Performed By: #### 2 16345 #### [facility],[address] [place] [address] 10979 Platelet mean volume (Bld) [Entitic vol] 7.5 fL Normal 6.4 - 10.5 [facility] Comment on above: Result Comment: AUTO MATED DIFFERENTIAL Performed By: #### 2 57482 #### [facility],[address] [place] [address] 30139 RBC 4.94 x 10EE6/UL Normal 4.50 - 6.00 [facility] Comment on above: Performed By: #### 2 84706 #### [facility],[address] [place] [address] 19031 WBC 9.9 x 10EE3/UL Normal 4.5 - 10.8 [facility] Comment on above: Performed By: #### 2 09409 #### [facility],[address] [place] [address] 23123 CHEST 1 VIEWon 11-19-2023 CHEST 1 VIEW [place] [address] Patient: NEIL GARCES Phone#: : 1985 Age: 38 Gender: M Pt. Type: ER Account: [id number] Location: [facility] Ordering: BLAYNE RIVERO Exam Date: 11/19/2023/13:58 Family Phys: JESSICA HODGSONHeber Charge Code: 949629 Physician: [place] Order #: [id number] Dose#: PROCEDURE: X-RAY CHEST 1 VIEW COMPARISON: [facility], XR, CHEST 1 VIEW, 03/24/2022, 1:38. INDICATIONS: Chest Pain. FINDINGS: LUNGS: Normal. No significant pulmonary parenchymal abnormalities. VASCULATURE: Normal. Unremarkable pulmonary vasculature. CARDIAC: Normal. No cardiac silhouette abnormality or cardiomegaly. MEDIASTINUM: Normal. No visible mass or adenopathy. PLEURA: Normal. No effusion or pleural thickening. BONES: Normal. No fracture or visible bony lesion. OTHER: Negative. CONCLUSION: No acute disease. No significant change has occurred. Dictated by: Lilly Fan MD on 11/19/2023 at 15:16 Approved by: Lilly Fan MD on 11/19/2023 at 15:16 Normal [facility] CMP with eGFRon 11-19-2023 AGE 38 years Normal [facility] Comment on above: Performed By: #### 2 36062 #### [facility],[address] [place] [address] 64598 Albumin [Mass/Vol] 3.3 g/dL Low 3.4 - 5.0 [facility] Comment on above: Performed By: #### 2 67675 #### [facility],[address] [place] [address] 66541 Albumin/Globulin [Mass ratio] 0.8 {ratio} Low 0.9 - 1.6 [facility] Comment on above: Performed By: #### 2 32960 #### [facility],[address] [place] [address] 73972 ALK PHOS 88 U/L Normal 46 - 116 [facility] Comment on above: Performed By: #### 2 53285 #### [facility],[address] [place] [address] 38976 ALT [Catalytic activity/Vol] 46 U/L Normal 16 - 63 [facility] Comment on above: Performed By: #### 2 23564 #### [facility],[address] [place] [address] 85624 Anion gap [Moles/Vol] 13 mmol/L Normal 10 - 20 [facility] Comment on above: Performed By: #### 2 97503 #### [facility],[address] [place] [address] 41460 AST [Catalytic activity/Vol] 30 U/L Normal 15 - 37 [facility] Comment on above: Performed By: #### 2 90700 #### [facility],[address] [place] [address] 01012 B/C RATIO 18 ratio Normal 0 - 30 [facility] Comment on above: Performed By: #### 2 87631 #### [facility],[address] [place] [address] 88353 Bilirubin [Mass/Vol] 0.5 mg/dL Normal 0.2 - 1.0 [facility] Comment on above: Performed By: #### 2 67119 #### [facility],[address] [place] [address] 11049 Calcium [Mass/Vol] 9.2 mg/dL Normal 8.5 - 10.1 [facility] Comment on above: Performed By: #### 2 50242 #### [facility],[address] [place] [address] 02160 Chloride [Moles/Vol] 99 mmol/L Normal 98 - 107 [facility] Comment on above: Performed By: #### 2 00412 #### [facility],[address] [place] [address] 63423 CMP with eGFR Normal [facility] Comment on above: Result Comment: COMP REHENSIVE METABOLIC PANEL Performed By: #### 2 07682 #### [facility],[address] [place] [address] 49035 CO2 [Moles/Vol] 30.4 mmol/L Normal 21.0 - 32.0 [facility] Comment on above: Performed By: #### 2 08768 #### [facility],[address] [place] [address] 13807 Creatinine [Mass/Vol] 0.66 mg/dL Low 0.70 - 1.30 [facility] Comment on above: Performed By: #### 2 72694 #### [facility],[address] [place] [address] 82513 GFR/1.73 sq M.predicted among non-blacks MDRD (S/P/Bld) [Vol rate/Area] mL/min/{1.73_m2} Normal 60 - 999 [facility] Comment on above: Performed By: #### 2 13305 #### [facility],[address] [place] [address] 56063 Result Comment: ACCO RDING TO THE NATIONAL KIDNEY DISEASE EDUCATION PROGRAM(NKDE), A NORMAL eGFR IS A VALUE GREATER THAN OR EQUAL TO 60 ML/MIN/1.73 SQ METERS. CHRONIC KIDNEY DISEASE: <60mL/MIN/1.73 SQ METERS KIDNEY FAILURE: <15mL/MIN/1.73 SQ METERS THIS TEST SHOULD ONLY BE USED FOR PATIENTS 18 YEARS OF AGE AND OLDER. Globulin (S) [Mass/Vol] 4.1 g/dL High 1.5 - 3.8 [facility] Comment on above: Performed By: #### 2 80450 #### [facility],[address] [place] [address] 70814 Glucose [Mass/Vol] 110 mg/dL High 74 - 106 [facility] Comment on above: Performed By: #### 2 16655 #### [facility],[address] [place] [address] 15559 Potassium [Moles/Vol] 4.2 mmol/L Normal 3.5 - 5.1 [facility] Comment on above: Performed By: #### 2 89405 #### [facility],[address] [place] [address] 71465 Protein [Mass/Vol] 7.4 g/dL Normal 6.4 - 8.2 [facility] Comment on above: Performed By: #### 2 81914 #### [facility],[address] [place] [address] 89186 Sodium [Moles/Vol] 138 mmol/L Normal 136 - 145 [facility] Comment on above: Performed By: #### 2 72963 #### [facility],[address] [place] [address] 80094 Urea nitrogen [Mass/Vol] 12 mg/dL Normal 7 - 18 [facility] Comment on above: Performed By: #### 2 68539 #### [facility],[address] [place] [address] 72302 D-DIMER, QUANTITATIVEon 11-04 D-DIMER QUANT 175 ng/ml Normal 0 - 230 [facility] Comment on above: Performed By: #### 2 27021 #### [facility],[address] [place] [address] 17139 D-DIMER, QUANTITATIVE Normal [facility] Comment on above: Result Comment: LLOYD T D-DIMER Performed By: #### 2 44309 #### [facility],[address] [place] [address] MAGNESIUMon 11-19-2023 Magnesium [Mass/Vol] 1.6 mg/dL Low 1.8 - 2.4 [facility] Comment on above: Performed By: #### 2 89049 #### [facility],[address] [place] [address] NT-proBNPon 11-19-2023 Natriuretic peptide B (Bld) [Mass/Vol] 36 pg/mL Normal 0 - 125 [facility] Comment on above: Performed By: #### 2 95294 #### [facility],[address] [place] [address] PROTHROMBIN TIME AND INRon 0 11-19-2023 INR Coag (PPP) [Relative time] 1.0 {INR} Normal 0.8 - 1.2 [facility] Comment on above: Result Comment: T HE HEMOSIL THROMBOPLASTIN REAGENT USED IN THE PROTHROMBIN TIME TEST INTERACTS WITH THE DRUG CUBICIN (DAPTOMYCIN) AND WILL RESULT IN FALSELY ELEVATED PT / INR RESULTS INR INTERPRETATION INR INDICATION PREVENTION AND TREATMENT OF THROMBOEMBOLISM ASSOCIATED WITH: 2.0 - 3.0 ATRIAL FIBRILLATION, BIOPROSTHETIC HEART VALVES, PULMONARY EMBOLISM, VENOUS THROMBOSIS, SYSTEMIC EMBOLISM POST MYOCARDIAL INFARCTION 2.5 - 3.5 MECHANICAL HEART VALVES Performed By: #### 2 19041 #### [facility],[address] [place] [address] PROTHROMBIN TIME AND INR Normal [facility] Comment on above: Result Comment: PROT HROMBIN TIME AND INR Performed By: #### 2 56589 #### [place] [address] PT-COUMADIN 12.3 sec Normal 9.3 - 14.1 [facility] Comment on above: Performed By: #### 2 40508 #### [place] [address]114 TROPONIN I, HIGH SENSITIVITY on 11-19-2023 HS TROPONIN 21.0 pg/mL Normal 0.0 - 76.2 [facility] Comment on above: Performed By: #### 2 40247 #### [facility],[address] [place] [address] 21188 HS TROPONIN 17.0 pg/mL Normal 0.0 - 76.2 [facility] Comment on above: Performed By: #### 2 24230 #### [facility],[address] [place] [address] 40886 INFLUENZA A&B MOLECULAR (POC )on 11-17-2023 Flu A (POCT) Negative Negative [facility] Flu B (POCT) Negative Negative [facility] Procedural Control Valid [facility] STREP A MOLECULAR (POC)on Procedural Control Valid [facility] Strep A (POCT) Negative Negative [facility] XR Chest PA and Lateralon IMPRESSION: Stable exam with no acute radiographic abnormality. [employer] Service Manager: [facility] Transcribe Date/Time: Nov 17 2023 12:21P Dictated by : NIMISHA ROSA MD This examination was interpreted and the report reviewed and electronically signed by: NIMISHA ROSA MD on Nov 17 2023 12:22PM [facility] DIVISION OF RADIOLOGY * * *Final Report* * * DATE OF EXAM: Nov 17 2023 12:15PM WOX 5291 - XR CHEST 2V FRONTAL/LAT / PROCEDURE REASON: multiple diagnoses * * * * Physician Interpretation * * * * EXAMINATION: CHEST RADIOGRAPH (2 VIEW FRONTAL & LATERAL) CLINICAL HISTORY: Acute cough SOB (shortness of breath) MQ: XC2_6 EXAM DATE/TIME: 11/17/2023 12:15 PM COMPARISON: 05/20/2023. RESULT: Lines, tubes, and devices: None. Lungs and pleura: No consolidation. No lung mass. No pleural effusion. No pneumothorax. Cardiomediastinal silhouette: Normal cardiomediastinal silhouette. Bones and soft tissues: Unremarkable. DIVISION OF RADIOLOGY Provider, [facility] - 11/17/2023 * * *Final Report* * * DATE OF EXAM: Nov 17 2023 12:15PM WOX 5291 - XR CHEST 2V FRONTAL/LAT / PROCEDURE REASON: multiple diagnoses * * * * Physician Interpretation * * * * EXAMINATION: CHEST RADIOGRAPH (2 VIEW FRONTAL & LATERAL) CLINICAL HISTORY: Acute cough SOB (shortness of breath) MQ: XC2_6 EXAM DATE/TIME: 11/17/2023 12:15 PM COMPARISON: 05/20/2023. RESULT: Lines, tubes, and devices: None. Lungs and pleura: No consolidation. No lung mass. No pleural effusion. No pneumothorax. Cardiomediastinal silhouette: Normal cardiomediastinal silhouette. Bones and soft tissues: Unremarkable. IMPRESSION IMPRESSION: Stable exam with no acute radiographic abnormality. [employer] Transport Service Manager: [facility] Transcribe Date/Time: Nov 17 2023 12:21P Dictated by : NIMISHA ROSA MD This examination was interpreted and the report reviewed and electronically signed by: NIMISHA ROSA MD on Nov 17 2023 12:22PM [facility] Radiology Study observation (narrative) Mindy childers [facility] XR Chest PA and LateralOrder ed By: Ccf Provider on 11-17-2023 [facility] Gastroenterology Visit Repor ton 11-01-2023 Gastroenterology Visit Report [facility] [address] [place] [address] OFFICE VISIT Date of Service: 11/01/23 MR#: [id number] Acct: [id number] Name: NEIL GARCES Rep #: [id number] : 1985 Provider: Gerber Krishnamurthy DO Age/Sex: 38/M Location: [facility] [place] Status: Signed Intake Vital Signs 02/05/23 08:53 Height 6 ft BP 172/94 H Blood Pressure Location Rt brachial Position Sitting Respiration 17 Pulse 83 Pulse Source Monitor Pulse Oximetry (%) 94 Oxygen Delivery Method room air Intake Visit Reasons: 6 MO FU Allergies No Known Allergies Allergy (Verified 05/12/23 14:20) PFSH Medical History HTN (hypertension) Injury of meniscus of knee Left hip pain PTSD (post-traumatic stress disorder) RUQ pain Surgical History H/O left knee surgery Family History Grandfather Throat cancer Social History Smoking Status: Former smoker alcohol intake: current alcohol intake frequency: a few times a week substance use type: does not use HPI HPI Details: NEIL GARCES, is a 38 M who presents to the office today for PMH HTN, PTSD [facility] hospitalization reported by Neil 2018 with severe diverticulitis without perforation. EGD/colonoscopy 06.04.20 Dr. Calabrese for abd pain. EGD irregular Zline. Pathology inflammation without metaplasia. H.pylori negative. Colonoscopy internal hemorrhoids; sigmoid diverticulosis. Pathology suspicious for collagenous colitis. CT abd/pel 08.07.21 abd pain hepatic steatosis with hepatomegaly, colonic diverticulosis. Remaining exam without acute/chronic abnormality. *BGI established 10.16.22 with referral from PCP. He has been having difficulty with urgent loose stools 2-3 times a day each day of the week with fecal incontinence lower back discomfort for approximately 2 years. Additionally, having difficulty with urination with what appears to be a steady/straight stream but will note urine on the floor. Biochemical CBC, haptoglobin, coag, CMP, ferritin, JIM, AFP, CHELA comp, ANCA, celiac, ceruloplasmin, copper, GAME, BRANDON, ASM, AMA, HIV, hepatitis, without pertinent abnormality. IBD not drawn.? ESR H45, A1c H7.9, LDH H266, CRP H16.20 ? Stool calprotectin, EP, O/P, giardia, lactoferrin WNL. C.Diff cancelled, formed.? Elastase L174 ? Start budesonide, call in two weeks with update and possible start of pancreatic enzymes. ? US and elastography 10.28.22 hepatic measurement 26.4cm with fatty infiltration stiffness 9kPa. OV 6..23 noting increased stress with in-laws with dementia living with them. Continue budesonide as it is helpful. Start doxycycline OV .02.26 continues with budesonide which he finds helpful; BM 2-3 soft/day with loose stools just 2-3/month. Continue budesonide. OV 24 budesonide 9mg QD has been helpful with reduction of loose stools. Increased stress lately has been cause of current symptoms; would like to avoid any medication changes until he returns to a normal level of stress. ROS Const Constitutional: Positive for fatigue ENT ENT: No difficulty swallowing Gastro GI: Positive for bloating, constipation, heartburn and excessive flatus; No abdominal pain, belching, change in bowel habits, change in stool character, coffee ground emesis, cramping, diarrhea, difficulty swallowing, feeling full early, incontinent of stools, Vomiting blood/hematemesis, Blood in stool, loose stools, Black,tarry stools, nausea/dyspepsia, pain with swallowing, vomiting or other Musc Musculoskeletal: Positive for joint pain, back pain, muscle cramps and stiffness Skin Skin: No yellowing of the eye or itchy eyes Psych Psychiatric: Positive for anxiety and Positive for depression Endo Endocrine: Positive for fatigue Aller/Imm Allergy/Immunologic: No itchy eyes Alan/Lymp Hematologic/Lymphatic: No easy bleeding or easy bruising Exam Const General: cooperative and no acute distress Orientation: alert, awake and oriented x3 Quality Reporting Tobacco Screening ([facility] 138) Smoking Status: Former smoker Assessment and Plan Assessment and Plan (1) Collagenous colitis: Status: Chronic Plan: 90% improvement on budesonide, continue budesonide 9 mg daily (2) NAFLD (nonalcoholic fatty liver disease): Status: Chronic Plan: Due to obesity and DM Consider adding vitamin E 400-800 IU daily Coding Level of Care Code Off vi (more content not included)... Normal [facility] UA DIP, URINE (POC)on 2022 BILIRUBIN UA (POCT) Negative Negative [facility] CLARITY UA (POCT) Clear [facility] COLOR UA (POCT) Dark yellow [facility] GLUCOSE UA (POCT) 500 mg/dL Abnormal Negative mg/dL [facility] Hemoglobin Ql (U) Negative Negative [facility] KETONE UA (POCT) Negative Negative mg/dL [facility] LEUKOCYTES UA (POCT) Negative Negative [facility] NITRITE UA (POCT) Negative Negative [facility] PH UA (POCT) 5.5 4.5 - 8.0 [facility] Protein Ql (U) Negative Negative mg/dL [facility] SPECIFIC GRAVITY UA (POCT) 1.020 1.005 - 1.030 [facility] UROBILINOGEN UA (POCT) 0.2 E.U./dL Shikha l E.U./dL [facility] GLUCOSE, BLOOD (POC)on 06-29 Glucose [Mass/Vol] 481 mg/dL Abnormal 74 - 99 mg/dL [facility] XR CHEST 2V FRONTAL/LATon [facility] XR Chest PA and Lateralon IMPRESSION: No acute radiographic abnormality. Armored Transport Service Manager: [facility] Transcribe Date/Time: May 20 2023 9:44A Dictated by : MONICA TORRES MD This examination was interpreted and the report reviewed and electronically signed by: MONICA TORRES MD on May 20 2023 9:45AM [facility] DIVISION OF RADIOLOGY * * *Final Report* * * DATE OF EXAM: May 20 2023 9:42AM WOX 5291 - XR CHEST 2V FRONTAL/LAT / PROCEDURE REASON: Subacute cough * * * * Physician Interpretation * * * * EXAMINATION: CHEST RADIOGRAPH (2 VIEW FRONTAL & LATERAL) CLINICAL HISTORY: Subacute cough MQ: XC2_6 EXAM DATE/TIME: 05/20/2023 9:42 AM COMPARISON: Chest radiograph 01/19/2022 RESULT: Lines, tubes, and devices: None. Lungs and pleura: No consolidation. No lung mass. No pleural effusion. No pneumothorax. Cardiomediastinal silhouette: Normal cardiomediastinal silhouette. Bones and soft tissues: Unremarkable. DIVISION OF RADIOLOGY Provider, Rigoberto wallace [place] - 05/20/2023 * * *Final Report* * * DATE OF EXAM: May 20 2023 9:42AM WOX 5291 - XR CHEST 2V FRONTAL/LAT / PROCEDURE REASON: Subacute cough * * * * Physician Interpretation * * * * EXAMINATION: CHEST RADIOGRAPH (2 VIEW FRONTAL & LATERAL) CLINICAL HISTORY: Subacute cough MQ: XC2_6 EXAM DATE/TIME: 05/20/2023 9:42 AM COMPARISON: Chest radiograph 01/19/2022 RESULT: Lines, tubes, and devices: None. Lungs and pleura: No consolidation. No lung mass. No pleural effusion. No pneumothorax. Cardiomediastinal silhouette: Normal cardiomediastinal silhouette. Bones and soft tissues: Unremarkable. IMPRESSION IMPRESSION: No acute radiographic abnormality. [employer] Transport Service Manager: [facility] Transcribe Date/Time: May 20 2023 9:44A Dictated by : MONICA TORRES MD This examination was interpreted and the report reviewed and electronically signed by: MONICA TORRES MD on May 20 2023 9:45AM EST [facility] Radiology Study observation (narrative) Mindy childers [facility] XR Chest PA and LateralOrder ed By: Cc Provider on 05-20-2023 [facility] Gastroenterology Visit Repor ton 05-12-2023 Gastroenterology Visit Report [facility] [address] [place] [address] OFFICE VISIT Date of Service: 05/12/23 MR#: [id number] Acct: [id number] Name: NEIL GARCES Rep #: [id number] : 1985 Provider: Gerber Krishnamurthy DO Age/Sex: 37/M Location: [facility] Status: Signed Intake Vital Signs 02/05/23 08:53 Height 6 ft BP 172/94 H Blood Pressure Location Rt brachial Position Sitting Respiration 17 Pulse 83 Pulse Source Monitor Pulse Oximetry (%) 94 Oxygen Delivery Method room air Intake Visit Reasons: 4 MO FU Allergies No Known Allergies Allergy (Verified 05/12/23 14:20) Medications hydrochlorothiazide 25 mg tablet 25 mg PO DAILY 05/30/20 [History Confirmed 05/12/23] lisinopril 40 mg tablet 40 mg PO DAILY 05/30/20 [History Confirmed 05/12/23] pantoprazole 40 mg tablet,delayed release (Protonix) 40 mg PO DAILY #30 tabs 08/07/21 [Rx Confirmed 05/12/23] sertraline 100 mg tablet 100 mg PO DAILY 07/28/22 [History Confirmed 05/12/23] sertraline 50 mg tablet 50 mg PO DAILY 07/28/22 [History Confirmed 05/12/23] trazodone 50 mg tablet 50 mg PO DAILY 07/28/22 [History Confirmed 05/12/23] budesonide 3 mg capsule,delayed,extende d release 3 mg PO TID #270 ea 02/05/23 [Rx Confirmed 05/12/23] doxycycline hyclate 100 mg capsule 100 mg PO BID #28 caps 02/05/23 [Rx Confirmed 05/12/23] glipizide 5 mg tablet, extended release 24 hr 5 mg PO DAILY 02/05/23 [History Confirmed 05/12/23] PFSH Medical History HTN (hypertension) Injury of meniscus of knee Left hip pain PTSD (post-traumatic stress disorder) RUQ pain Surgical History H/O left knee surgery Family History Grandfather Throat cancer Social History Smoking Status: Former smoker alcohol intake: current alcohol intake frequency: a few times a week substance use type: does not use HPI HPI Details: NEIL GARCES, is a 37 M who presents to the office today for follow up. PMH HTN, PTSD? [facility] hospitalization reported by Neil [place] with severe diverticulitis without perforation.? EGD and colonoscopy 06.04.[address] Calabrese for abd pain. EGD found irregular Zline. Otherwise without visual abnormality. Pathology noted inflammation without metaplasia. H.pylori negative.??? Colonoscopy noting internal hemorrhoids; sigmoid diverticulosis. Pathology suspicious for collagenous colitis.? CT abd/pel 08.07.21 abd pain noting hepatic steatosis with hepatomegaly, colonic diverticulosis. Remaining exam without acute/chronic abnormality.? *I established 10.16.22 with referral from PCP. He has been having difficulty with urgent loose stools 2-3 times a day each day of the week with fecal incontinence lower back discomfort for approximately 2 years. Additionally, having difficulty with urination with what appears to be a steady/straight stream but will note urine on the floor.??? Biochemical workup???CBC, coagulation, CMP, ferritin, LFT, HIV, hepatitis, JIM, AFP, AMA, ASM, CHELA comp, ANCA, celiac, ceruloplasmin, copper, GAME, haptoglobin, BRANDON without pertinent abnormality. IBD not drawn.?ES R H45, A1c H7.9, LDH H266, CRP H16.20?S tool calprotectin, EP, O/P, giardia, lactoferrin WNL. C.Diff cancelled, formed.?Elast ase L174?S tart budesonide, call in two weeks with update and possible start of pancreatic enzymes.?U S and elastography???10.28.22 hepatic measurement 26.4cm with fatty infiltration stiffness 9kPa.??? OV 9.6.23- Pt reports doing overall well since last visit. Still takes Budesonide 3mg TID. Feels as though its helpful for diarrhea. Has 2-3 soft BM a day. Only has liquid diarrhea 2-3x a month. Has increased gas but no abdominal pain or cramping. ROS Const Constitutional: Positive for fatigue ENT ENT: No difficulty swallowing Gastro GI: Positive for bloating, constipation, heartburn and excessive flatus; No abdominal pain, belching, change in bowel habits, change in stool character, coffee ground emesis, cramping, diarrhea, difficulty swallowing, feeling full early, incontinent of stools, Vomiting blood/hematemesis, Blood in stool, loose stools, Black,tarry stools, nausea/dyspepsia, pain with swallowing, vomiting or other Musc Musculoskeletal: Positive for joint pain, back pain, muscle cramps and stiffness Skin Skin: No yellowing of the eye or itchy eyes (more content not included)... Normal [facility] No Panel InformationOrdered By: Gerber Krishnamurthy on 10-27-2022 Giardia Antigen (KYAW) [facility] Ova and parasitesOrdered By: Gerber Krishnamurthy on 10-27-2022 Ova and parasites identified LM Nom (Unsp spec) [facility] EP PanelOrdered By: Gerber Krishnamurthy on 10-19-2022 Gastrointestinal pathogens panel MELBA+probe (Stl) [facility] No Panel InformationOrdered By: Gerber Krishnamurthy on 10-19-2022 Stool Calprotectin <16 ug/g 0-120 [facility] Comment on above: Concentration Interp retation Follow-Up<16 - 50 ug/g Normal None>50 -120 ug/g Borderline Re-evaluate in 4-6 weeks >120 ug/g Abnormal Repeat as clinically indicatedPerformed at: - [address] [id number] Director: Maren Hu MD, Phone: [phone] Stool Pancreatic Elastase 174 >200 [facility] Comment on above: Result Units: ug Radha st./g Severe Pancreatic Insufficiency: <100 Moderate Pancreatic Insufficiency: 100 - 200 Normal: >200Performed at: [facility] [address] [id number] Director: Maren Hu MD, Phone: [phone] Stool lactoferrin detection by immunoassayOrdered By: Gerber Krishnamurthy on 10-19-2022 Lactoferrin IA Ql (Stl) [facility] Absolute lymphocyte countOrd ered By: Gerber Krishnamurthy on 10-16-2022 Lymphocytes Auto (Unsp spec) [#/Vol] 1.66 10*3/uL 0.83-4.51 [facility] Albumin Elph [Mass/Vol]Order ed By: Gerber Krishnamurthy on 10-16-2022 Albumin [Mass/Vol] 3.5 g/dL 2.9-4.4 [facility] Atypical perinuclear antineu trophil cytoplasmic antibodies measurementOrdered By: Gerber Krishnamurthy on 10-16-2022 Neutrophil cytoplasmic Ab.perinuclear.atypical IF (S) [Titer] <1:20 titer Neg:<1:20 [facility] Comment on above: The atypical pANCA p attern has been observed in asignificant percentage of patients with ulcerative colitis,primary sclerosing cholangitis and autoimmune hepatitis. Basophil percentageOrdered B y: Gerber Krishnamurthy on 10-16-2022 Ammonia (P) [Moles/Vol] 24.0 umol/L 11-32 [facility] Basophil percentage < 0.2 AI 0.0-0.9 [facility] Basophils/100 WBC (Bld) 0.6 % 0-1 [facility] Bilirubin [Mass/Vol] 0.40 mg/dL 0.20-1.00 [facility] Comment on above: For patients on eltr ombopag therapy, use of Dimension [place] TBIL is not recommended. Chloride [Moles/Vol] 100 mmol/L 98-107 [facility] Eosinophils/100 WBC (Bld) 2.1 % 0-5 [facility] Glucose [Mass/Vol] 233 mg/dL 74-106 [facility] Comment on above: Glucose result great er than or equal to 200 mg/dLsuggests DIABETES MELLITUS per A.D.A. criteria. LDH [Catalytic activity/Vol] 266 U/L 87-241 [facility] Neutrophils (Bld) [#/Vol] 5.4 10*3/uL 2.0-7.7 [facility] Neutrophils/100 WBC (Bld) 68.5 % 47-70 [facility] Potassium [Moles/Vol] 4.2 mmol/L 3.5-5.1 [facility] Protein [Mass/Vol] 7.8 g/dL 6.4-8.2 [facility] Sodium [Moles/Vol] 137 mmol/L 136-145 [facility] WBC (Bld) [#/Vol] 7.9 10*3/uL 4.4-11.0 [facility] Blood erythrocytes count (nu mber/volume)Ordered By: Gerber Krishnamurthy on 10-16-2022 RBC (Bld) [#/Vol] 5.06 10*6/uL 4.6-6.2 [facility] Blood hemoglobin measurement (mass/volume)Ordered By: Gerber Krishnamurthy on 10-16-2022 Hemoglobin (Bld) [Mass/Vol] 14.7 g/dL 13.0-16.5 [facility] Blood lymphocytes/100 leukoc ytesOrdered By: Gerber Krishnamurthy on 10-16-2022 Lymphocytes/100 WBC (Bld) 21.0 % 19-41 [facility] Blood monocytes/100 leukocyt esOrdered By: Gerber Krishnamurthy on 10-16-2022 Monocytes/100 WBC (Bld) 7.4 % 0-10 [facility] Blood platelet mean volumeOr dered By: Gerber Krishnamurthy on 10-16-2022 Platelet mean volume (Bld) [Entitic vol] 9.7 fL 6.2-12.0 [facility] Determination of erythrocyte mean corpuscular volume (MCV)Ordered By: Gerber Krishnamurthy on 10-16-2022 MCV (RBC) [Entitic vol] 89.7 fL 80-94 [facility] Erythrocyte sedimentation ra teOrdered By: Gerber Krishnamurthy on 10-16-2022 ESR (Bld) [Velocity] 45 mm/h 0-20 [facility] HIV 1 and HIV-2 antibody ass ay with HIV-1 p24 antigen detectionOrdered By: Gerber Krishnamurthy on 10-16-2022 HIV 1+2 Ab+HIV1 p24 Ag IA Ql Non-Reactive Nonreactive [facility] Hematocrit Auto (Bld) [Volum e fraction]Ordered By: Gerber Krishnamurthy on 10-16-2022 Hematocrit (Bld) [Volume fraction] 45.4 % 40-54 [facility] INR in Blood by Coagulation assayOrdered By: Gerber Krishnamurthy on 10-16-2022 INR Coag (Bld) [Relative time] 1.0 {INR} [facility] Interpretation of serum or p lasma protein pattern by immunofixation (narrative resultOrdered By: Gerber Krishnamurthy on 10-16-2022 Protein Fractions Immunofixation Graham [Interp] See comment [facility] Comment on above: NOT OBSERVED Laboratory - Chemistry and C hemistry - challengeOrdered By: Gerber Krishnamurthy on 10-16-2022 ALP [Catalytic activity/Vol] 106 U/L 45-117 [facility] ALT [Catalytic activity/Vol] 42 U/L 16-61 [facility] CO2 [Moles/Vol] 29.0 mmol/L 21.0-32.0 [facility] Urea nitrogen/Creatinine [Mass ratio] 21.4 mg/mg 10-20 [facility] Laboratory - CoagulationOrde red By: Gerber Krishnamurthy on 10-16-2022 PT Coag (PPP) [Time] 13.0 s 11.7-14.9 [facility] Laboratory - Hematology and Cell countsOrdered By: Gerber Krishnamurthy on 10-16-2022 Erythrocyte distribution width (RBC) [Entitic vol] 44.2 fL 35.1-43.9 [facility] Erythrocyte distribution width (RBC) [Ratio] 13.5 % 11.6-14.6 [facility] Immature granulocytes/100 WBC (Bld) 0.400 % 0.0-0.9 [facility] Comment on above: IG% - Immature Granu locytes (promyelocytes, myelocytes and metamyelocytes) > 1% indicates that a LEFT SHIFT is Present. MCH (RBC) [Entitic mass] 29.1 pg 27.0-32.0 [facility] Nucleated RBC/100 WBC (Bld) [Ratio] 0 % 0-5 [facility] MCHC Auto (RBC) [Mass/Vol]Or dered By: Gerber Krishnamurthy on 10-16-2022 MCHC (RBC) [Mass/Vol] 32.4 g/dL 32-36 [facility] No Panel InformationOrdered By: Gerber Krishnamurthy on 10-16-2022 Addendum Document Comment . [facility] Comment on above: Protein electrophore sis scan will follow via computer,mail, or irrigation specialist delivery. Centromere B Antibody <0.2 AI 0.0-0.9 [facility] Ceruloplasmin 25.9 mg/dL 16.0-31.0 [facility] Endomysial IgA Antibody Negative Negative [facility] Estimated GFR (MDRD) Amer 139 mL/min >60 [facility] Comment on above: GFR Calc Estimated GFR (MDRD) Non-Af Amer 115 mL/min >60 [facility] Comment on above: Non- GFR Calc Haptoglobin 259 mg/dL 17-317 [facility] Comment on above: Performed at: - [address] [id number] Director: Ez Morales PhD, Phone: [phone] at: - [facility] [id number] Director: Maren Hu MD, Phone: [phone] Hepatitis A IgM Antibody Negative Negative [facility] Hepatitis B Core IgM Antibody Negative Negative [facility] Hepatitis C Antibody (EIA) <0.1 s/co ratio 0.0-0.9 [facility] Hepatitis C Antibody Comment Comment . [facility] Comment on above: NegativeNot infected with HCV, unless recent infection issuspected or other evidence exists to indicate HCVinfection. Immunoglobulin E 71 IU/mL 6-495 [facility] PERSONNEL SECURITY SPECIALIST Antibody 0.4 AI 0.0-0.9 [facility] Platelets bldOrdered By: Adriel Krishnamurthy on 10-16-2022 Platelets (Bld) [#/Vol] 253 10*3/uL 150-450 [facility] Serum DNA double strand anti body assay (units/volume)Ordered By: Gerber Krishnamurthy on 10-16-2022 DNA double strand Ab Qn (S) [IU]/mL 0-9 [facility] Comment on above: Negative <5 Equivoca l 5 - 9 Positive >9 Serum Beth-1 antibody assay (u nits/volume)Ordered By: Gerber Krishnamurthy on 10-16-2022 Beth-1 extractable nuclear Ab Qn (S) <0.2 AI 0.0-0.9 [facility] Serum Scl-70 extractable nuc lear antibody assay (units/volume)Ordered By: Gerber Krishnamurthy on 10-16-2022 SCL-70 extractable nuclear Ab Qn (S) <0.2 AI 0.0-0.9 [facility] Serum Son extractable nucl ear antibody detectionOrdered By: Gerber Krishnamurthy on 10-16-2022 Son extractable nuclear Ab Ql (S) <0.2 AI 0.0-0.9 [facility] Serum [id number] measu rement by electrophoresisOrdered By: Gerber Krishnamurthy on 10-16-2022 Alpha 1 globulin Elph [Mass/Vol] 0.2 g/dL 0.0-0.4 [facility] Alpha 1 globulin Elph [Mass/Vol] 0.8 g/dL 0.4-1.0 [facility] Serum classic neutrophil cyt oplasmic antibody assay (units/volume)Ordered By: Gerber Krishnamurthy on 10-16-2022 Neutrophil cytoplasmic Ab.classic Qn (S) Comment titer Neg:<1:20 [facility] Comment on above: Results are Indeterm inate. Serum globulin measurement ( mass/volume)Ordered By: Gerber Krishnamurthy on 10-16-2022 Globulin (S) [Mass/Vol] 3.6 g/dL 2.2-3.9 [facility] Serum mitochondria antibody detectionOrdered By: Gerber Krishnamurthy on 10-16-2022 Mitochondria Ab Ql (S) <20.0 Units 0.0-20.0 [facility] Comment on above: Negative 0.0 - 20.0 Equivocal 20.1 - 24.9 Positive >24.9Mitochondrial (M2) Antibodies are found in 90-96% ofpatients with primary biliary cirrhosis.Performed at: [address] [id number] Director: Ez Morales PhD, Phone: [phone] Serum or plasma C reactive p rotein measurement (mass/volume)Ordered By: Gerber Krishnamurthy on 10-16-2022 CRP [Mass/Vol] 16.20 mg/L 0.0-3.0 [facility] Comment on above: C-Reactive Protein ( CRP) provides useful information for thediagnosis, therapy and monitoring of inflammatory processesand associated diseases. For the evaluation of Relative Riskfor Cardiovascular Disease, a High Sensitivity CRP (HSCRP)should be ordered. Serum or plasma IgA measurem ent (mass/volume)Ordered By: Gerber Krishnamurthy on 10-16-2022 IgA [Mass/Vol] 380 mg/dL 90-386 [facility] Serum or plasma IgG measurem ent (mass/volume)Ordered By: Gerber Krishnamurthy on 10-16-2022 IgG [Mass/Vol] 1287 mg/dL 603-1613 [facility] Serum or plasma IgM measurem ent (mass/volume)Ordered By: Gerber Krishnamurthy on 10-16-2022 IgM [Mass/Vol] 108 mg/dL 20-172 [facility] Serum or plasma actin IgG an tibody assay (units/volume)Ordered By: Gerber Krishnamurthy on 10-16-2022 Actin IgG Qn 11 Units 0-19 [facility] Comment on above: Negative 0 - 19 Weak positive 20 - 30 Moderate to strong positive >30 Actin Antibodies are found in 52-85% of patients with autoimmune hepatitis or chronic active hepatitis and in 22% of patients with primary biliary cirrhosis. Serum or plasma albumin madi urement (mass/volume)Ordered By: Gerber Krishnamurthy on 10-16-2022 Albumin [Mass/Vol] 3.3 g/dL 3.2-5.0 [facility] Serum or plasma albumin/glob ulin mass ratioOrdered By: Gerber Krishnamurthy on 10-16-2022 Albumin/Globulin [Mass ratio] 0.7 {ratio} 0.9-2.4 [facility] Serum or plasma [id number]-[id number] protein tumor marker measurement (units/volume)Ordered By: Gerber Krishnamurthy on 10-16-2022 AFP.tumor marker Qn 1.9 ng/mL 0.0-6.9 [facility] Comment on above: [employer] El ectrochemiluminescence Immunoassay(ECLIA)Values obtained with different assay methods or kits cannotbe used interchangeably. Results cannot be interpreted asabsolute evidence of the presence or absence of malignantdisease.This test is not interpretable in females. Serum or plasma angiotensin converting enzyme measurement (enzymatic activity/volume)Ordered By: Gerber Krishnamurthy on 10-16-2022 Angiotensin converting enzyme [Catalytic activity/Vol] 40 U/L 14-82 [facility] Serum or plasma beta globuli n measurement by electrophoresis (mass/volume)Ordered By: Gerber Krishnamurthy on 10-16-2022 Beta globulin Elph [Mass/Vol] 1.2 g/dL 0.7-1.3 [facility] Serum or plasma calcium madi urement (mass/volume)Ordered By: Gerber Krishnamurthy on 10-16-2022 Calcium [Mass/Vol] 9.0 mg/dL 8.5-10.1 [facility] Serum or plasma creatinine m easurement (mass/volume)Ordered By: Gerber Krishnamurthy on 10-16-2022 Creatinine [Mass/Vol] 0.80 mg/dL 0.70-1.30 [facility] Comment on above: The validity of the calculated GFR & GFRAA in patients over 70 years has not been determined. Clinical correlation is essential. Serum or plasma ferritin demario surement (mass/volume)Ordered By: Gerber Krishnamurthy on 10-16-2022 Ferritin [Mass/Vol] 197 ng/mL 26-388 [facility] Serum or plasma gamma globul in measurement by electrophoresis (mass/volume)Ordered By: Gerber Krishnamurthy on 10-16-2022 Gamma globulin Elph [Mass/Vol] 1.3 g/dL 0.4-1.8 [facility] Serum or plasma hepatitis B virus surface antigen detection by immunoassayOrdered By: Gerber Krishnamurthy on 10-16-2022 HBV surface Ag IA Ql Negative Negative [facility] Serum or plasma immunoelectr ophoresis interpretation (nominal result)Ordered By: Gerber Krishnamurthy on 10-16-2022 Interpretation IEP [Interp] Comment . [facility] Comment on above: No monoclonality det ected. Serum or plasma urea nitroge n measurement (mass/volume)Ordered By: Gerber Krishnamurthy on 10-16-2022 Urea nitrogen [Mass/Vol] 17 mg/dL 7-18 [facility] Serum perinuclear neutrophil cytoplasmic antibody titer by immunofluorescenceOrdered By: Gerber Krishnamurthy on 10-16-2022 Neutrophil cytoplasmic Ab.perinuclear IF (S) [Titer] <1:20 titer Neg:<1:20 [facility] Comment on above: The presence of posi tive fluorescence exhibiting P-ANCA orC-ANCA patterns alone is not specific for the diagnosis ofWegener's Granulomatosis (WG) or microscopic polyangiitis.Decisions about treatment should not be based solely onANCA IFA results. The [employer] ANCA [employer] Consensusrecommends follow up testing of positive sera with both KY-3 and MPO-ANCA enzyme immunoassays. As many as 5% serumsamples are positive only by EIA. Ref. AM J Clin [id number];111:507-513. Serum tissue transglutaminas e IgA antibody assay (units/volume)Ordered By: Gerber Krishnamurthy on 10-16-2022 tTG IgA Qn (S) <2 U/mL 0-3 [facility] Comment on above: Negative 0 - 3 Weak Positive 4 - 10 Positive >10 Tissue Transglutaminase (tTG) has been identified as the endomysial antigen. Studies have demonstr- ated that endomysial IgA antibodies have over 99% specificity for gluten sensitive enteropathy. Thin prep Papanicolaou smear with manual screeningOrdered By: Gerber Krishnamurthy on 10-16-2022 Thin prep Papanicolaou smear with manual screening 22 U/L 15-37 [facility] Thin prep Papanicolaou smear with manual screening 8 5-15 [facility] Thin prep Papanicolaou smear with manual screening 1.0 0.7-1.7 [facility] Thin prep Papanicolaou smear with manual screening 101 ug/dL 69-132 [facility] Comment on above: Detection Limit = 5 Total protein bloodOrdered B y: Gerber Friend on 10-16-2022 Protein [Mass/Vol] 7.1 g/dL 6.0-8.5 [facility] Whole blood hemoglobin A1c/t otal hemoglobin ratio (mass fraction)Ordered By: Gerber Friend on 10-16-2022 HbA1c (Bld) [Mass fraction] 7.9 % 3.8-5.6 [facility] Comment on above: Normal < 5.7 % Predi abetic 5.7 - 6.4 % Diabetic >or= 6.5 % Please note range changes. Basic metabolic 2000 panelon 08-21-2022 Anion gap [Moles/Vol] 8 mmol/L Normal 6-18 [facility] Comment on above: Performed By: #### 2 340-8 #### [facility] [address] [place] [address] Calcium [Mass/Vol] 8.9 mg/dL Normal 8.9-10.3 [facility] Comment on above: Performed By: #### 2 340-8 #### [facility] [address] [place] [address] Chloride [Moles/Vol] 100 mmol/L Normal 98-107 [facility] Comment on above: Performed By: #### 2 340-8 #### [facility] [address] [place] [address] CO2 [Moles/Vol] 30 mmol/L Normal 22-32 [facility] Comment on above: Performed By: #### 2 340-8 #### [facility] [address] [place] [address] Creatinine [Mass/Vol] 0.64 mg/dL Normal 0.60-1.30 [facility] Comment on above: Performed By: #### 2 340-8 #### [facility] [address] [place] [address] GFR/1.73 sq M.predicted among non-blacks MDRD (S/P/Bld) [Vol rate/Area] 123 mL/min/{1.73_m2} Normal >=60 [facility] Comment on above: Result Comment: Effe ctive June 14, 2022, calculation based on the?Chronic Kidney Disease Epidemiology Collaboration (CKD-EPI) equation refit?without adjustment for race. Performed By: #### 2 340-8 #### [facility] [address] [place] [address] Glucose [Mass/Vol] 161 mg/dL High 70-99 [facility] Comment on above: Performed By: #### 2 340-8 #### [facility] [address] [place] [address] Potassium [Moles/Vol] 4.1 mmol/L Normal 3.6-5.1 [facility] Comment on above: Performed By: #### 2 340-8 #### [facility] [address] [place] [address] Sodium [Moles/Vol] 138 mmol/L Normal 136-145 [facility] Comment on above: Performed By: #### 2 340-8 #### [facility] [address] [place] [address] Urea nitrogen [Mass/Vol] 15 mg/dL Normal 8-20 [facility] Comment on above: Performed By: #### 2 340-8 #### [facility] [address] [place] [address] Urea nitrogen/Creatinine [Mass ratio] 23.4 mg/mg High 12.0-20.0 [facility] Comment on above: Performed By: #### 2 340-8 #### [facility] [address] [place] [address] Glucose Auto test strip (Bld ) [Mass/Vol]on 08-21-2022 Glucose [Mass/Vol] 122 mg/dL High 70- [facility] Comment on above: Performed By: #### 2 340-8 #### [facility] [address] [place] [address] Glucose [Mass/Vol] 169 mg/dL High 70-99 [facility] Comment on above: Performed By: #### 2 340-8 #### [facility] [address] [place] [address] Hemogram and platelets WO di fferential panel (Bld)on 08-21-2022 Erythrocyte distribution width (RBC) [Ratio] 13.0 % Normal 11.0-14.8 [facility] Comment on above: Performed By: #### 2 340-8 #### [facility] [address] [place] [address] Hematocrit (Bld) [Volume fraction] 35.3 % Low 39.0-49.0 [facility] Comment on above: Performed By: #### 2 340-8 #### [facility] [address] [place] [address] Hemoglobin (Bld) [Mass/Vol] 11.4 g/dL Low 13.5-17.5 [facility] Comment on above: Performed By: #### 2 340-8 #### [facility] [address] [place] [address] MCH 29.4 pcg Normal 27.0-34.0 [facility] Comment on above: Performed By: #### 2 340-8 #### [facility] [address] [place] [address] MCHC (RBC) [Mass/Vol] 32.3 g/dL Normal 30.8-35.3 [facility] Comment on above: Performed By: #### 2 340-8 #### [facility] [address] [place] [address] MCV (RBC) [Entitic vol] 91.0 fL Normal 80.0-97.0 [facility] Comment on above: Performed By: #### 2 340-8 #### [facility] [address] [place] [address] Platelet mean volume (Bld) [Entitic vol] 9.9 fL Normal 6.2-12.1 [facility] Comment on above: Performed By: #### 2 340-8 #### [facility] [address] [place] [address] Platelets (Bld) [#/Vol] 190 10*3/uL Normal 142-424 [facility] Comment on above: Performed By: #### 2 340-8 #### [facility] [address] [place] [address] RBC (Bld) [#/Vol] 3.88 10*6/uL Low 4.30-5.70 [facility] Comment on above: Performed By: #### 2 340-8 #### [facility] [address] [place] [address] WBC (Bld) [#/Vol] 8.8 10*3/uL Normal 4.6-10.2 [facility] Comment on above: Performed By: #### 2 340-8 #### [facility] [address] [place] [address] Basic metabolic 2000 panelon 08-20-2022 Anion gap [Moles/Vol] 7 mmol/L Normal 6-18 [facility] Comment on above: Performed By: #### 2 4321-2 #### [facility] [address] [place] [address] Calcium [Mass/Vol] 9.1 mg/dL Normal 8.9-10.3 [facility] Comment on above: Performed By: #### 2 4321-2 #### [facility] [address] [place] [address] Chloride [Moles/Vol] 99 mmol/L Normal 98-107 [facility] Comment on above: Performed By: #### 2 4321-2 #### [facility] [address] [place] [address] CO2 [Moles/Vol] 28 mmol/L Normal 22-32 [facility] Comment on above: Performed By: #### 2 4321-2 #### [facility] [address] [place] [address] Creatinine [Mass/Vol] 0.62 mg/dL Normal 0.60-1.30 [facility] Comment on above: Performed By: #### 2 4321-2 #### [facility] [address] [place] [address] GFR/1.73 sq M.predicted among non-blacks MDRD (S/P/Bld) [Vol rate/Area] 125 mL/min/{1.73_m2} Normal >=60 [facility] Comment on above: Result Comment: Effe ctive June 14, 2022, calculation based on the?Chronic Kidney Disease Epidemiology Collaboration (CKD-EPI) equation refit?without adjustment for race. Performed By: #### 2 4321-2 #### [facility] [address] [place] [address] Glucose [Mass/Vol] 237 mg/dL High 70-99 [facility] Comment on above: Performed By: #### 2 4321-2 #### [facility] [address] [place] [address] Potassium [Moles/Vol] 4.5 mmol/L Normal 3.6-5.1 [facility] Comment on above: Performed By: #### 2 4321-2 #### [facility] [address] [place] [address] Sodium [Moles/Vol] 134 mmol/L Low 136-145 [facility] [place] Comment on above: Performed By: #### 2 4321-2 #### [facility] [address] [place] [address] Urea nitrogen [Mass/Vol] 12 mg/dL Normal 8-20 [facility] [place] Comment on above: Performed By: #### 2 4321-2 #### [facility] [address] [place] [address] Urea nitrogen/Creatinine [Mass ratio] 19.4 mg/mg Normal 12.0-20.0 [facility] [place] Comment on above: Performed By: #### 2 4321-2 #### [facility] [address] [place] [address] Glucose Auto test strip (Bld ) [Mass/Vol]on 08-20-2022 Glucose [Mass/Vol] 156 mg/dL High 70-99 [facility] [place] Comment on above: Performed By: #### 2 340-8 #### [facility] [address] [place] [address] Glucose [Mass/Vol] 138 mg/dL High 70-99 [facility] [place] Comment on above: Performed By: #### 2 340-8 #### [facility] [address] [place] [address] Glucose [Mass/Vol] 178 mg/dL High 70-99 [facility] [place] Comment on above: Performed By: #### 2 340-8 #### [facility] [address] [place] [address] Glucose [Mass/Vol] 213 mg/dL High 70-99 [facility] [place] Comment on above: Performed By: #### 2 340-8 #### [facility] [address] [place], [place] [address] [address] Hemogram and platelets WO di fferential panel (Bld)on 08-20-2022 Erythrocyte distribution width (RBC) [Ratio] 12.5 % Normal 11.0-14.8 [facility] [place] Comment on above: Performed By: #### 2 4317-0 #### [facility] [address] [place] [address] Hematocrit (Bld) [Volume fraction] 37.7 % Low 39.0-49.0 [facility] [place] [facility] Comment on above: Performed By: #### 2 4317-0 #### [facility] [address] [place] [address] Hemoglobin (Bld) [Mass/Vol] 12.3 g/dL Low 13.5-17.5 [facility] [place] [facility] Comment on above: Performed By: #### 2 4317-0 #### [facility] [address] [place] [address] MCH 29.1 pcg Normal 27.0-34.0 [facility] [place] Comment on above: Performed By: #### 2 4317-0 #### [facility] [address] [place] [address] MCHC (RBC) [Mass/Vol] 32.6 g/dL Normal 30.8-35.3 [facility] Comment on above: Performed By: #### 2 4317-0 #### [facility] [address] [place] [address] MCV (RBC) [Entitic vol] 89.3 fL Normal 80.0-97.0 M ount [facility] Comment on above: Performed By: #### 2 4317-0 #### [facility] [address] [place] [address] Platelet mean volume (Bld) [Entitic vol] 10.3 fL Normal 6.2-12.1 [facility] [place] [facility] Comment on above: Performed By: #### 2 4317-0 #### [facility] [address] [place] [address] Platelets (Bld) [#/Vol] 208 10*3/uL Normal 142-424 [facility] [place] [facility] Comment on above: Performed By: #### 2 4317-0 #### [facility] [address] [place] [address] RBC (Bld) [#/Vol] 4.22 10*6/uL Low 4.30-5.70 [facility] [place] Comment on above: Performed By: #### 2 4317-0 #### [facility] [address] [place] [address] WBC (Bld) [#/Vol] 12.0 10*3/uL High 4.6-10.2 [facility] [place] Comment on above: Performed By: #### 2 4317-0 #### [facility] [address] [place] [address] Glucose Auto test strip (Bld ) [Mass/Vol]on 08-19-2022 Glucose [Mass/Vol] 238 mg/dL High 70-99 [facility] [place] Comment on above: Performed By: #### 2 340-8 #### [facility] [address] [place] [address] Glucose [Mass/Vol] 207 mg/dL High 70-99 [facility] [place] Comment on above: Performed By: #### 2 340-8 #### [facility] [address] [place] [address] Glucose [Mass/Vol] 178 mg/dL High 70-99 [facility] [place] Comment on above: Performed By: #### 2 340-8 #### [facility] [address] [place] [address] XR PELVIS 1-2 VIEWSon 2021 XR PELVIS 1-2 VIEWS EXAMINATION TYPE: XR PELVIS 1-2 VIEWS DATE OF EXAM: 08/19/2022 4:30 PM HISTORY: Postoperative. Joint replacement. Portable film in PACU. COMPARISON PLAIN FILM: NONE FINDINGS: Osseous structures and arthroplasty are intact. No malalignment. Intra-articular and periarticular postoperative gas. IMPRESSION: Status post recent left hip arthroplasty without acute complication. -------- FINAL REPORT -------- Dictated By: Gael Palacios Dictated Date: 08/20/2022 13:47 Assigned Physician: Gael Palacios Reviewed and Electronically Signed By: Gael Palacios Signed Date: 08/20/2022 13:48 Workstation ID: [id number] Transcribed By: Self Edit Transcribed Date: 08/20/2022 13:47 Normal [facility] XR RIBS/CHEST 3V AP RIB/OBLS /CXR LEFTon 01-19-2022 [facility] XR Ribs - left Views and Amber st PAon 01-19-2022 IMPRESSION: No acute left rib fracture identified. [employer] Service Manager: MARIO Transcribe Date/Time: Jan 19 2022 3:37P Dictated by : SEMAJ RILEY MD This examination was interpreted and the report reviewed and electronically signed by: SEMAJ RILEY MD on Jan 19 2022 3:39PM EST ZZZ_DO_NOT_U SE_DIVISION OF RADIOLOGY * * *Final Report* * * DATE OF EXAM: Jan 19 2022 3:28PM WOX 5243 - XR RIB/CHST 3V AP RIB/OBL/CHST L / PROCEDURE REASON: Rib pain on left side * * * * Physician Interpretation * * * * EXAMINATION: XR RIB/CHST 3V AP RIB/OBL/CHST L HISTORY: Left lateral to anterior lower rib pain after sneezing yesterday. Rib pain on left side . TECHNIQUE: XR RIB/CHST 3V AP RIB/OBL/CHST L Laterality: LEFT Number of different views (projections): 3 M: XB_1 COMPARISON: None. RESULT: The lungs are clear. No pneumothorax or pleural effusion. Normal cardiomediastinal silhouette. 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 No acute displaced left rib fracture identified. No destructive bone lesion. ZZZ_DO_NOT_U SE_DIVISION OF RADIOLOGY Provider, [facility] - 01/19/2022 * * *Final Report* * * DATE OF EXAM: Jan 19 2022 3:28PM WOX 5243 - XR RIB/CHST 3V AP RIB/OBL/CHST L / PROCEDURE REASON: Rib pain on left side * * * * Physician Interpretation * * * * EXAMINATION: XR RIB/CHST 3V AP RIB/OBL/CHST L HISTORY: Left lateral to anterior lower rib pain after sneezing yesterday. Rib pain on left side . TECHNIQUE: XR RIB/CHST 3V AP RIB/OBL/CHST L Laterality: LEFT Number of different views (projections): 3 M: XB_1 COMPARISON: None. RESULT: The lungs are clear. No pneumothorax or pleural effusion. Normal cardiomediastinal silhouette. 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 No acute displaced left rib fracture identified. No destructive bone lesion. IMPRESSION IMPRESSION: No acute left rib fracture identified. [employer] Service Manager: MARIO Transcribe Date/Time: Jan 19 2022 3:37P Dictated by : SEMAJ RILEY MD This examination was interpreted and the report reviewed and electronically signed by: SEMAJ RILEY MD on Jan 19 2022 3:39PM EST [facility] Radiology Study observation (narrative) Mindy Connolly XR Ribs - left Views and Amber st PAOrdered By: [facility] Provider on 01-19-2022 [facility] No Panel Informationon 04-09 IMPRESSION: Facet arthropathy in the lower lumbar spine without acute osseous findings. Severe left hip osteoarthritis. No acute osseous findings. [employer] Service Manager: MARIO Transcribe Date/Time: Apr 09 2021 4:12P Dictated by : SHARITA AMAYA MD This examination was interpreted and the report reviewed and electronically signed by: SHARITA AMAYA MD on Apr 09 2021 4:14PM [facility] DIVISION OF RADIOLOGY Radiology Study observation (narrative) [facility] Panel InformationOrdered By: [facility] Provider on 04-09-2021 [facility] XR Lumbar spine 3 Viewson * * *Final Report* * * DATE OF EXAM: Apr 09 2021 3:39PM WOX 5228 - XR LUMBAR 3V AP/LAT/L5-S1 / PROCEDURE REASON: Left hip pain * * * * Physician Interpretation * * * * EXAMINATION: XR HIP 3V PELV+ AP/LAT LT, XR LUMBAR 3V AP/LAT/L5-S1 CLINICAL HISTORY: No injury, Lower back pain that radiates down the lateral side of the left hip. Left hip pain Technique: XR HIP 3V PELV+ AP/LAT LT, XR LUMBAR 3V AP/LAT/L5-S1 -- LEFT (accession [id number]), NOT APPLICABLE (accession [id number]) with 3 views on 4 (accession [id number]), 3 (accession [id number]) images Comparison: None RESULT: Lumbar spine: Counting reference: Lumbosacral junction. For the purposes of this report, L4-5 is considered the level of the iliac crest and assume there are 5 lumbar-type vertebrae. Anatomic variant: None. Mild straightening of normal lumbar lordosis. Disc spaces are maintained. Facet arthropathy in the lower lumbar spine with up to moderate foraminal encroachment at L5-S1. No pars or compression defect. Prevertebral soft tissues are unremarkable. Hip: Severe degenerative changes in the left hip with superolateral gdlo-oz-xvgb articulation, subchondral sclerosis and marginal osteophytes. SI joints and pubic symphysis are maintained. Degenerative changes in the lumbar spine. DIVISION OF RADIOLOGY Provider, [facility] Mildred Brooke - 04/09/2021 * * *Final Report* * * DATE OF EXAM: Apr 09 2021 3:39PM WOX 5228 - XR LUMBAR 3V AP/LAT/L5-S1 / PROCEDURE REASON: Left hip pain * * * * Physician Interpretation * * * * EXAMINATION: XR HIP 3V PELV+ AP/LAT LT, XR LUMBAR 3V AP/LAT/L5-S1 CLINICAL HISTORY: No injury, Lower back pain that radiates down the lateral side of the left hip. Left hip pain Technique: XR HIP 3V PELV+ AP/LAT LT, XR LUMBAR 3V AP/LAT/L5-S1 -- LEFT (accession [id number]), NOT APPLICABLE (accession [id number]) with 3 views on 4 (accession [id number]), 3 (accession [id number]) images Comparison: None RESULT: Lumbar spine: Counting reference: Lumbosacral junction. For the purposes of this report, L4-5 is considered the level of the iliac crest and assume there are 5 lumbar-type vertebrae. Anatomic variant: None. Mild straightening of normal lumbar lordosis. Disc spaces are maintained. Facet arthropathy in the lower lumbar spine with up to moderate foraminal encroachment at L5-S1. No pars or compression defect. Prevertebral soft tissues are unremarkable. Hip: Severe degenerative changes in the left hip with superolateral tgwv-eb-ixcu articulation, subchondral sclerosis and marginal osteophytes. SI joints and pubic symphysis are maintained. Degenerative changes in the lumbar spine. IMPRESSION IMPRESSION: Facet arthropathy in the lower lumbar spine without acute osseous findings. Severe left hip osteoarthritis. No acute osseous findings. [employer] Service Manager[facility] Transcribe Date/Time: Apr 09 2021 4:12P Dictated by : SHARITA AMAYA MD This examination was interpreted and the report reviewed and electronically signed by: SHARITA AMAYA MD on Apr 09 2021 4:14PM [facility] XR Pelvis and Hip - left AP and Lateral frogon 04-09-2021 * * *Final Report* * * DATE OF EXAM: Apr 09 2021 3:39PM WOX 5351 - XR HIP 3V PELV+ AP/LAT LT / PROCEDURE REASON: Left hip pain * * * * Physician Interpretation * * * * EXAMINATION: XR HIP 3V PELV+ AP/LAT LT, XR LUMBAR 3V AP/LAT/L5-S1 CLINICAL HISTORY: No injury, Lower back pain that radiates down the lateral side of the left hip. Left hip pain Technique: XR HIP 3V PELV+ AP/LAT LT, XR LUMBAR 3V AP/LAT/L5-S1 -- LEFT (accession [id number]), NOT APPLICABLE (accession [id number]) with 3 views on 4 (accession [id number]), 3 (accession [id number]) images Comparison: None RESULT: Lumbar spine: Counting reference: Lumbosacral junction. For the purposes of this report, L4-5 is considered the level of the iliac crest and assume there are 5 lumbar-type vertebrae. Anatomic variant: None. Mild straightening of normal lumbar lordosis. Disc spaces are maintained. Facet arthropathy in the lower lumbar spine with up to moderate foraminal encroachment at L5-S1. No pars or compression defect. Prevertebral soft tissues are unremarkable. Hip: Severe degenerative changes in the left hip with superolateral etdv-xp-imfp articulation, subchondral sclerosis and marginal osteophytes. SI joints and pubic symphysis are maintained. Degenerative changes in the lumbar spine. DIVISION OF RADIOLOGY Provider, [facility] * * *Final Report* * * DATE OF EXAM: Apr 09 2021 3:39PM WOX 5351 - XR HIP 3V PELV+ AP/LAT LT / PROCEDURE REASON: Left hip pain * * * * Physician Interpretation * * * * EXAMINATION: XR HIP 3V PELV+ AP/LAT LT, XR LUMBAR 3V AP/LAT/L5-S1 CLINICAL HISTORY: No injury, Lower back pain that radiates down the lateral side of the left hip. Left hip pain Technique: XR HIP 3V PELV+ AP/LAT LT, XR LUMBAR 3V AP/LAT/L5-S1 -- LEFT (accession [id number]), NOT APPLICABLE (accession [id number]) with 3 views on 4 (accession [id number]), 3 (accession [id number]) images Comparison: None RESULT: Lumbar spine: Counting reference: Lumbosacral junction. For the purposes of this report, L4-5 is considered the level of the iliac crest and assume there are 5 lumbar-type vertebrae. Anatomic variant: None. Mild straightening of normal lumbar lordosis. Disc spaces are maintained. Facet arthropathy in the lower lumbar spine with up to moderate foraminal encroachment at L5-S1. No pars or compression defect. Prevertebral soft tissues are unremarkable. Hip: Severe degenerative changes in the left hip with superolateral aitk-zc-gkrs articulation, subchondral sclerosis and marginal osteophytes. SI joints and pubic symphysis are maintained. Degenerative changes in the lumbar spine. IMPRESSION IMPRESSION: Facet arthropathy in the lower lumbar spine without acute osseous findings. Severe left hip osteoarthritis. No acute osseous findings. [employer] Service Manager: MARIO Transcribe Date/Time: Apr 09 2021 4:12P Dictated by : SHARITA AMAYA MD This examination was interpreted and the report reviewed and electronically signed by: SHARITA AMAYA MD on Apr 09 2021 4:14PM [facility] 05-15-2020 CNPN Telephone (AGGENS4) NEIL GARCES ([id number]) 1985 M Date Time Provider Department 05/15/20 GABY LEAL AGGENS4 During your visit today, we recorded the following information about you: Boyd Scooter Reg 05/15/2020 1:15 PM Signed Safia Oviedo, sent a general surgery referral, regarding abdominal pain. Patient is in need of an EGD and coloscopy. Previous procedure was cancelled due to BMI. Left message for patient. Allergies As of Date: 05/15/2020 (No Known Allergies) Date Reviewed: 04/30/2020 Reviewed by: Safia Oviedo - Fully Assessed Reason for Visit: External Referrals/resources [909] Prescriptions as of 05/15/2020 Sig: DICYCLOMINE 20 MG TABLET Take 1 tablet by mouth four t* LISINOPRIL 40 MG TABLET Take 1 tablet by mouth once d* OMEPRAZOLE 40 MG CAPSULE,REBECCA* Take 1 capsule by mouth once * HYDROCHLOROTHIAZIDE 25 MG TAB* Take 1 tablet by mouth once d* CPAP Initiate Auto PAP @ 11-20 cm * CHOLECALCIFEROL (VITAMIN D3) * Take 2,000 Units by mouth onc* MISCELLANEOUS MEDICAL SUPPLY * Compression wraps to be used * MULTIVITAMIN TABLET Take 1 tablet by mouth once d* Problem List As Of Date 05/15/2020 Noted Resolved Morbid obesity with BMI of 60.0-69.9, adult (HC* PTSD (post-traumatic stress disorder) [F43.10] More... Hypertension [I10] Lymphedema of both lower extremities [I89.0] 09/13/2019 AIDE (obstructive sleep apnea) [G47.33] Vitamin D deficiency [E55.9] Encounter Status:Closed by BOYD KEENE on 05/15/20 Normal [facility] US DUPLEX LE ART COMP UNI LT on 07-07-2017 US DUPLEX LE ART COMP UNI LT LOWER EXTREMITY ARTERIAL DUPLEX STUDYREFERRING PHYSICIAN: SHANTEL Marquez.CLINICAL HISTORY: Peripheral vascular disease.FINDINGS:The right-ankle brachial index is 1.08 and the left is 1.04.B-Mode, color flow duplex imaging and Doppler waveform analysis of arteries ofthe left lower extremity reveals some elevation of peak systolic velocity inthe left distal superficial femoral artery. No obvious plaque formation isnoted.IMPRESSION:Subo ptimal study due to the patient?s morbid obesity. No definite arterialinsufficiency at rest in the left lower extremity. No focal areas ofhemodynamically significant stenosis identified.Electronical ly signed by:Approved By: Jam ÁLVAREZ: 07/14/2017 5:22 PM [facility] US DUPLEX LE VEINS UNILAT LT on 07-07-2017 DUPLEX LE VEINS UNILAT LT LOWER EXTREMITY DUPLEX VENOUS EVALUATIONREFERRING PHYSICIAN: BRENDEN MarquezINICAL HISTORY: Edema left leg and pain.FINDINGS:Venous Doppler waveform analysis of veins of the left lower extremity revealsnormal spontaneous and phasic flow with demonstrable augmentation in the commonfemoral, femoral, popliteal and greater saphenous veins. Flow in thecontralateral right common femoral vein is normal.B-Mode imaging of veins of the left lower extremity reveals normalcompressibility and no evidence of thrombus. The left posterior tibial,peroneal, and gastrocnemial veins are not visualized due to the patient?s bodyhabitus.IMPRESSION: Negative study for DVT and SVT in visualized veins of the left lower extremity.The study is suboptimal due to the patient?s body habitus. Left posteriortibial, peroneal and gastrocnemial veins are not visualized.Electronical ly signed by:Approved By: Jam ÁLVAREZ: 07/14/2017 5:22 PM Normal [facility] CHELA (ANTI-NUCLEAR ABS SCREEN )on 07-01-2017 Antinuclear Antibodies, IFA Negative Normal [facility] Comment on above: Result Comment: Nega tive <1:80 Borderline 1:80 Positive >1:80 Performed By: #### A CR ####[facility] [id number] [place], [place] [address]OFDHYWELMA Plasencia MD C-REACTIVE PROTEINon 017 CRP, QUANT 4.9 mg/L Normal 0.0-4.9 [facility] Comment on above: Performed By: #### C RPROT ####[facility] [id number] [place] [address]BVDMLJELMA Plasencia MD CBC PLT DIFFon 06-29-2017 Basophils Auto #/vol (Bld) 0.06 10 3/uL Normal 0.00-0.10 [facility] Comment on above: Performed By: #### C BC ####[facility] [id number] [place] [address]DDZKWIELMA Plasencia MD Basophils/100 WBC Auto (Bld) 0.7 % Normal 0.2-1.0 [facility] Comment on above: Performed By: #### C BC ####[facility] [id number] [place] [id number] Plasencia MD Blood morphology Normal [facility] Comment on above: Performed By: #### C BC ####[facility] [id number] [place] [id number] Plasencia MD Eosinophils 0.18 10 3/uL Normal 0.00-0.20 [facility] Comment on above: Performed By: #### C BC ####[facility] [id number] [place], [place] [address]MNQJQBELMA Plasencia MD Eosinophils/100 leukocytes 2.0 % Normal 0.9-2.9 [facility] Comment on above: Performed By: #### C BC ####[facility] [id number] [place], [place] [address]ELMA Plasencia MD Erythrocyte distribution width Auto Ratio (RBC) 13.2 % Normal 11.5-15.5 [facility] Comment on above: Performed By: #### C BC ####[facility] [id number] [place] [address]ELMA Plasencia MD Erythrocytes (RBC) 5.28 10 6/uL Normal 4.70-6.10 [facility] Comment on above: Performed By: #### C BC ####[facility] [id number] [place] [address]ELMA Plasencia MD Erythrocytes (RBC) 0.00 10 3/uL Normal [facility] Comment on above: Performed By: #### C BC ####[facility] [id number] [place], [place] [address]ELMA Plasencia MD Hematocrit (HCT) 45.0 % Normal 42.0-52.0 [facility] Comment on above: Performed By: #### C BC ####[facility] [id number] [place], [place] [address]ELMA Plasencia MD Hemoglobin mass conc (Bld) 15.0 g/dL Normal 14.0-18.0 [facility] Comment on above: Performed By: #### C BC ####[facility] [id number] [place], [place] [address]ELMA Plasencia MD IG# 0.02 10 3/uL Normal [facility] Comment on above: Performed By: #### C BC ####[facility] [id number] [place], [place] [address]ELMA Plasencia MD IG% 0.2 % Normal [facility] Comment on above: Performed By: #### C BC ####[facility] [id number] [place], [place] [address]ELMA Plasencia MD Lymphocytes 2.35 10 3/uL Normal 1.30-2.90 [facility] Comment on above: Performed By: #### C BC ####[facility] [id number] [place], [place] [address]ELMA Plasencia MD Lymphocytes/100 leukocytes 25.5 % Normal 20.5-45.5 [facility] Comment on above: Performed By: #### C BC ####[facility] [id number] [place], [place] [address]YYVATZELMA Plasencia MD MCH 28.4 pg Normal 27.0-31.0 [facility] Comment on above: Performed By: #### C BC ####[facility] [id number] [place], [place] [address]UYVENPELMA Plasencia MD MCHC mass conc (RBC) 33.3 g/dL Normal 32.0-36.0 [facility] Comment on above: Performed By: #### C BC ####[facility] [id number] [place], [place] [address]PPLDQIELMA Plasencia MD MCV 85.2 fL Normal 80.0-94.0 [facility] Comment on above: Performed By: #### C BC ####[facility] [id number] [place], [place] [address]XTDOQHELMA Plasencia MD Monocytes 0.70 10 3/uL Normal 0.30-0.80 [facility] Comment on above: Performed By: #### C BC ####[facility] [id number] [place], [place] [address]ZNTZISELMA Plasencia MD Monocytes/100 leukocytes 7.6 % Normal 5.5-11.7 [facility] Comment on above: Performed By: #### C BC ####[facility] [id number] [place], [place] [address]HUCOPXELMA Plasencia MD Neutrophils 5.93 10 3/uL High 2.20-4.80 [facility] Comment on above: Performed By: #### C BC ####[facility] [id number] [place], [place] [address]UULXJFELMA Plasencia MD Neutrophils/100 WBC Auto (Bld) 64.2 % Normal 43.0-65.0 [facility] Comment on above: Performed By: #### C BC ####[facility] [id number] [place], [place] [address]JYVVBYELMA Plasencia MD NRBC% 0.0 % Normal [facility] Comment on above: Performed By: #### C BC ####[facility] [id number] [place], [place] [address]QTLSIOELMA Plasencia MD Platelet mean volume (PMV) 10.1 fL Normal 7.4-10.4 [facility] Comment on above: Performed By: #### C BC ####[facility] [id number] [place], [place] [address]WMOLUILEMA Plasencia MD Platelets 254 10 3/uL Normal 130-400 [facility] Comment on above: Performed By: #### C BC ####[facility] [id number] [place], [place] [address]FLKOEJELMA Plasencia MD WBC (Leukocytes) 9.22 10 3/uL Normal 4.70-10.80 [facility] Comment on above: Performed By: #### C BC ####[facility] [id number] [place] [address]YSAQZDELMA Plasencia MD CMPon 06-29-2017 Alanine aminotransferase (ALT) 71 U/L Normal 21-72 [facility] Comment on above: Performed By: #### C MP ####[facility] [id number] [place] [address]XHIRJIELMA Plasencia MD Albumin 4.3 g/dL Normal 3.5-5.0 [facility] Comment on above: Performed By: #### C MP ####[facility] [id number] [place] [address]FGJIELELMA Plasencia MD Alkaline phosphatase (ALP) 54 U/L Normal 38-126 [facility] Comment on above: Performed By: #### C MP ####[facility] [id number] [place] [address] [id number] Plasencia MD Aspartate aminotransferase (AST) 36 U/L Normal 17-59 [facility] Comment on above: Performed By: #### C MP ####[facility] [id number] [place] [address] [id number] Plasencia MD Bilirubin (total) 0.6 mg/dL Normal 0.2-1.3 [facility] Comment on above: Performed By: #### C MP ####[facility] [id number] [place], [place] [id number] Plasencia MD Calcium 9.6 mg/dL Normal 8.4-10.2 [facility] Comment on above: Performed By: #### C MP ####[facility] [id number] [place], [place] [id number] Plasencia MD Chloride 106 mmol/L Normal 98-107 [facility] Comment on above: Performed By: #### C MP ####[facility] [id number] [place], [place] [id number] Plasencia MD CO2 25 mmol/L Normal 22-30 [facility] Comment on above: Performed By: #### C MP ####[facility] [id number] [place], [place] [address]ELMA Plasencia MD Creatinine 0.8 mg/dL Normal 0.7-1.3 [facility] Comment on above: Performed By: #### C MP ####[facility] [id number] [place] [id number] Plasencia MD eGFR (non-black) 135 mL/min/1.73m 2 Normal >=60 [facility] Comment on above: Performed By: #### C MP ####[facility] [id number] [place] [address] [id number] Plasencia MD eGFR (non-black) 111 mL/min/1.73 m 2 Normal >=60 [facility] Comment on above: Performed By: #### C MP ####[facility] [id number] [place] [id number] Plasencia MD Glucose mass conc 96 mg/dL Normal 70-99 [facility] Comment on above: Performed By: #### C MP ####[facility] [id number] [place] [id number] Plasencia MD K+ 4.0 mmol/L Normal 3.5-5.0 [facility] Comment on above: Performed By: #### C MP ####[facility] [id number] [place] [address] [id number] Plasencia MD NA+ 139 mmol/L Normal 137-145 [facility] Comment on above: Performed By: #### C MP ####[facility] [id number] [place], [place] [address]NSDHTRROSA Plasencia MD Protein 7.4 g/dL Normal 6.3-8.2 [facility] Comment on above: Performed By: #### C MP ####[facility] [id number] [place], [place] [address]VRUEZYROSA Plasencia MD Urea nitrogen 18 mg/dL Normal 9-20 [facility] Comment on above: Performed By: #### C MP ####[facility] [id number] [place], [place] [id number] Plasencia MD RA FACTORon 06-29-2017 RA TEST Negative Normal NEGATIVE [facility] Comment on above: Performed By: #### R A ####[facility] [id number] [place], [place] [address]GAYVMOROSA Plasencia MD SED RATEon 06-29-2017 SED RATE 11 mm/hr High <=10 [facility] Comment on above: Performed By: #### E SR ####[facility] [id number] [place], [place] [address]EDQDVTROSA Plasencia MD KNEE AP LAT LTon 06-16-2017 KNEE AP LAT LT TWO VIEW LEFT KNEEINDICATION: Left knee pain medial as well as patella for five days. No knowninjury.FINDINGS: Two views obtained of the left knee and there is no prior exam forcomparison. There is normal bony mineralization. There is tricompartmentaldegener ative change which is estimated to be mild. There is a suspected smallknee joint effusion.WHElectronical ly signed by:Approved By: BLAYNE SIMONS, MDDate: 06/16/2017 3:57 PM Normal [facility] Vital Signs Date Time Vital Sign Value Performing Clinician Nate pratt 01-17-2025 09:15-0400 Body mass index (BMI) [Ratio] 65.73 kg/m2 Fanny Wiggins PA-C Work Phone: [facility] 01-17-2025 09:150400 Body temperature 86 [degF] Fanny Clutter PA-C Work Phone: [facility] 01-17-2025 09:15-0400 Body weight 226 kg Fanny Clutter PA-C Work Phone: [facility] 01-17-2025 09:15-0400 Diastolic blood pressure 82 mm[Hg] Fanny Clutter PA-C Work Phone: [facility] 01-17-2025 09:15-0400 Heart rate 86 /min Fanny Clutter PA-C Work Phone: [facility] 01-17-2025 09:15-0400 Respiratory rate 20 /min Fanny Clutter PA-C Work Phone: [facility] 01-17-2025 09:15-0400 SaO2% (BldA) [Mass fraction] 95 % Fanny Clutter PA-C Work Phone: [facility] 01-17-2025 09:15-0400 Systolic blood pressure 128 mm[Hg] Fanny Clutter PA-C Work Phone: [facility] 09-07-2024 12:04-0500 Body mass index (BMI) [Ratio] 65.59 kg/m2 Pietro Kelly DEMURRAGE CLERK.DOCUMENT IMAGING SPECIALIST Work Phone: [facility] 09-07-2024 12:04-0500 Body temperature 98.2 [degF] Pietro Kelly DEMURRAGE CLERK.DOCUMENT IMAGING SPECIALIST Work Phone: [facility] 09-07-2024 12:04-0500 Body weight 225.5 kg Pietro Kelly DEMURRAGE CLERK.DOCUMENT IMAGING SPECIALIST Work Phone: [facility] 09-07-2024 12:04-0500 Diastolic blood pressure 90 mm[Hg] Pietro Kelly DEMURRAGE CLERK.DOCUMENT IMAGING SPECIALIST Work Phone: [facility] 09-07-2024 12:04-0500 Heart rate 82 /min Pietro Kelly DEMURRAGE CLERK.DOCUMENT IMAGING SPECIALIST Work Phone: [facility] 09-07-2024 12:04-0500 Respiratory rate 22 /min Pietro Kelly DEMURRAGE CLERK.DOCUMENT IMAGING SPECIALIST Work Phone: [facility] 09-07-2024 12:04-0500 SaO2% (BldA) [Mass fraction] 96 % Pietro Kelly APRN.DOCUMENT IMAGING SPECIALIST Work Phone: [facility] 09-07-2024 12:04-0500 Systolic blood pressure 148 mm[Hg] Pietro Kelly APRN.CNP Work Phone: [facility] 11-17-2023 11:16-0400 Body temperature 98.29 [degF] Alejandro Wooten MD Work Phone: [facility] 11-17-2023 11:16-0400 Body weight 232.6 kg Alejandro Wooten MD Work Phone: [facility] 11-17-2023 11:16-0400 Diastolic blood pressure 86 mm[Hg] Alejandro Wooten MD Work Phone: [facility] 11-17-2023 11:16-0400 Heart rate 79 /min Alejandro Wooten MD Work Phone: [facility] 11-17-2023 11:16-0400 Respiratory rate 16 /min Alejandro Wooten MD Work Phone: [facility] 11-17-2023 11:16-0400 SaO2% (BldA) [Mass fraction] 97 % Alejandro Wooten MD Work Phone: [facility] 11-17-2023 11:16-0400 Systolic blood pressure 152 mm[Hg] Alejandro Wooten MD Work Phone: [facility] 07-19-2023 13:23-0500 Body height 185.4 cm Trevor Jara APRN.PERLA RAMOS Work Phone: [facility] 07-19-2023 13:23-0500 Body temperature 96.91 [degF] Trevor Jara APRN.CNP, DNP Work Phone: [facility] 07-19-2023 13:23-0500 Body weight 229.16 kg Trevor Jara APRN.PERLA RAMOS Work Phone: [facility] 07-19-2023 13:23-0500 Diastolic blood pressure 90 mm[Hg] Trevor Jara DEMURRAGE CLERK.DOCUMENT IMAGING SPECIALIST, DNP Work Phone: [facility] 07-19-2023 13:23-0500 Heart rate 98 /min Trevor Jara APRN.DOCUMENT IMAGING SPECIALIST, DNP Work Phone: [facility] 07-19-2023 13:23-0500 Respiratory rate 18 /min Trevor Jara APRN.DOCUMENT IMAGING SPECIALIST, DNP Work Phone: [facility] 07-19-2023 13:23-0500 SaO2% (BldA) [Mass fraction] 97 % Trevor Jara APRN.DOCUMENT IMAGING SPECIALIST, DNP Work Phone: [facility] 07-19-2023 13:23-0500 Systolic blood pressure 130 mm[Hg] Trevor Jara DEMURRAGE CLERK.DOCUMENT IMAGING SPECIALIST, DNP Work Phone: [facility] 2023 08:46-0400 Body temperature 91.99 [degF] Adri Jones DEMURRAGE CLERK.DOCUMENT IMAGING SPECIALIST Work Phone: [facility] 2023 08:46-0400 Body weight 230.43 kg Adri Jones DEMURRAGE CLERK.DOCUMENT IMAGING SPECIALIST Work Phone: [facility] 2023 08:46-0400 Diastolic blood pressure 101 mm[Hg] Adri Karen DEMURRAGE CLERK.DOCUMENT IMAGING SPECIALIST Work Phone: [facility] 2023 08:46-0400 Systolic blood pressure 152 mm[Hg] Adri Linton DEMURRAGE CLERK.DOCUMENT IMAGING SPECIALIST Work Phone: [facility] 06-29-2023 12:55-0400 Body temperature 97.9 [degF] Pietro Kelly DEMURRAGE CLERK.DOCUMENT IMAGING SPECIALIST Work Phone: [facility] 06-29-2023 12:55-0400 Body weight 230.7 kg Pietro Kelly DEMURRAGE CLERK.DOCUMENT IMAGING SPECIALIST Work Phone: [facility] 06-29-2023 12:55-0400 Diastolic blood pressure 86 mm[Hg] Pietro Kelly DEMURRAGE CLERK.DOCUMENT IMAGING SPECIALIST Work Phone: [facility] 06-29-2023 12:55-0400 Heart rate 94 /min Pietro Trejonaima DEMURRAGE CLERK.DOCUMENT IMAGING SPECIALIST Work Phone: [facility] 06-29-2023 12:55-0400 Respiratory rate 18 /min Pietro Trejonaima DEMURRAGE CLERK.DOCUMENT IMAGING SPECIALIST Work Phone: [facility] 06-29-2023 12:55-0400 SaO2% (BldA) [Mass fraction] 95 % Pietro Kelly DEMURRAGE CLERK.DOCUMENT IMAGING SPECIALIST Work Phone: [facility] 06-29-2023 12:55-0400 Systolic blood pressure 132 mm[Hg] Pietro Trejonaima DEMURRAGE CLERK.DOCUMENT IMAGING SPECIALIST Work Phone: [facility] 05-20-2023 09:08-0400 Body temperature 96.91 [degF] Alejandro Wooten MD Work Phone: [facility] 05-20-2023 09:08-0400 Body weight 235.15 kg Alejandro Wooten MD Work Phone: [facility] 05-20-2023 09:08-0400 Diastolic blood pressure 100 mm[Hg] Alejandro Wooten MD Work Phone: [facility] 05-20-2023 09:08-0400 Heart rate 81 /min Alejandro Wooten MD Work Phone: [facility] 05-20-2023 09:08-0400 Respiratory rate 26 /min Alejandro Wooten MD Work Phone: [facility] 05-20-2023 09:08-0400 SaO2% (BldA) [Mass fraction] 94 % Alejandro Wooten MD Work Phone: [facility] 05-20-2023 09:08-0400 Systolic blood pressure 160 mm[Hg] Alejandro Wooten MD Work Phone: [facility] 11-16-2022 17:02-0400 Body height 182.[address] Orlin MIGUEL Work Phone: [facility] 11-16-2022 17:02-0400 Body weight 254.[address] Orlin MIGUEL Work Phone: [facility] 09-29-2022 16:50-0500 Body height 182.88 cm [facility] 09-29-2022 16:50-0500 Body weight 252.56 kg [facility] 07-21-2022 17:10-0500 Body weight 249.38 kg [facility] 03-31-2022 16:24-0400 Body weight 244.49 kg Eran Canchola MD Work Phone: [facility] 03-31-2022 16:24-0400 Diastolic blood pressure 76 mm[Hg] Eran Canchola MD Work Phone: [facility] 03-31-2022 16:24-0400 Heart rate 85 /min Eran Canchola MD Work Phone: [facility] 03-31-2022 16:24-0400 Respiratory rate 20 /min Eran Canchola MD Work Phone: [facility] 03-31-2022 16:24-0400 SaO2% (BldA) [Mass fraction] 96 % Eran Canchola MD Work Phone: [facility] 03-31-2022 16:24-0400 Systolic blood pressure 138 mm[Hg] Eran Canchola MD Work Phone: [facility] 01-19-2022 15:12-0400 Diastolic blood pressure 82 mm[Hg] Eran Canchola MD Work Phone: [facility] 01-19-2022 15:12-0400 Systolic blood pressure 136 mm[Hg] Eran Canchola MD Work Phone: [facility] 01-19-2022 14:47-0400 Body weight 240.13 kg Eran Canchola MD Work Phone: [facility] 01-19-2022 14:47-0400 Heart rate 75 /min Eran Canchola MD Work Phone: [facility] 01-19-2022 14:47-0400 Respiratory rate 18 /min Eran Canchola MD Work Phone: [facility] 01-19-2022 14:47-0400 SaO2% (BldA) [Mass fraction] 96 % Eran Canchola MD Work Phone: [facility] Encounters Encounter Date Encounter Type Care Provider Facility Start: 01-17-2025 End: 01-17-2025 Office outpatient new 30 minutes Fanny Wiggins PA-C Work Phone: [facility] Comment on above: Contusion of left fo rearm, initial encounter (Primary Dx); Wound cellulitis Start: 01-17-2025 End: 01-17-2025 Subsequent hospital visit by physician [facility] Work Phone: Radiology Comment on above: Contusion of left fo rearm, initial encounter [S50.12XA] Start: 01-17-2025 End: 01-17-2025 ambulatory [facility] Facility:[facility] Start: 09-07-2024 End: 09-07-2024 Patient encounter procedure Pietro Kelly APRN.CNP Work Phone: [facility] Comment on above: Procedure not ethan d out (Primary Dx) Start: 09-07-2024 End: 09-07-2024 ambulatory JESSICA HOWE Facility:[facility] Start: 04-05-2024 End: 04-05-2024 Emergency department patient visit Frederick Egan Facility:[facility] Start: 11-19-2023 End: 11-19-2023 Emergency department patient visit JESSICA HOWE [facility] Start: 11-17-2023 End: 11-17-2023 Subsequent hospital visit by physician Xr [facility] Work Phone: Radiology Comment on above: Acute cough [R05.1] Start: 11-17-2023 End: 11-17-2023 Patient encounter procedure Alejandro Wooten MD Work Phone: [facility] Comment on above: Sore throat (Primary Dx); Acute cough; SOB (shortness of breath); Wheezing Start: 11-01-2023 End: 11-01-2023 ambulatory [facility] Facility:[facility] Start: 07-19-2023 End: 07-19-2023 Office outpatient visit 15 minutes Trevor Jara APRN.CNP, DNP Work Phone: Urology Comment on above: Tinea cruris (Primar y Dx); Paraphimosis; Screening for genitourinary condition; Morbid obesity with BMI of 60.0-69.9, adult (HCC); Acquired buried penis Start: 2023 End: 2023 Patient encounter procedure Adri Jones APRN.DOCUMENT IMAGING SPECIALIST Work Phone: Urology Comment on above: Rash of genital area (Primary Dx); Yeast infection; Cellulitis, unspecified cellulitis site Start: 06-29-2023 End: 06-29-2023 Office outpatient visit 15 minutes Pietro Kelly APRN.RACHEL Work Phone: [facility] Comment on above: Rash (Primary Dx) Start: 05-20-2023 End: 05-20-2023 Subsequent hospital visit by physician Xr [facility] Work Phone: Radiology Comment on above: Subacute cough [R05. 2] Start: 05-20-2023 End: 05-20-2023 Patient encounter procedure Alejandro Wooten MD Work Phone: [facility] Comment on above: Subacute cough (Prim deyanira Dx); Wheezing Start: 05-12-2023 End: 05-12-2023 ambulatory [facility] Facility:[facility] Start: 11-16-2022 End: 12-04-[address] Orlin MIGUEL Work Phone: [facility] Work Phone: Start: 11-16-2022 End: 12-04-[address] Orlin MIGUEL Work Phone: [facility]-Nutritional Services Start: 11-16-[address] Mat MIGUEL Work Phone: [facility] Start: 10-28-2022 End: 10-28-[address] Orlin Canchola Work Phone: [facility] Work Phone: Start: 10-28-2022 End: 10-28-[address] Orlin Canchola Work Phone: [facility] [place], [facility] Start: 10-22-2022 End: 10-22-[address] Orlin Canchola Work Phone: [facility]-Physical Therapy Start: 10-19-2022 End: 10-19-[address] Orlin Canchola Work Phone: [facility] Work Phone: Start: 10-19-2022 End: 10-19-[address] Orlin Canchola Work Phone: [facility] Start: 10-16-2022 End: 10-16-[address] Orlin Canchola Work Phone: [facility] Work Phone: Start: 10-16-2022 End: 10-16-[address] Orlin Canchola Work Phone: [facility] [place] [facility] Start: 10-05-2022 Registered Recurring [facility]-Physical Therapy Start: 09-29-2022 End: 10-06-2022 ambulatory [facility] Work Phone: Start: 09-29-2022 End: 10-06-2022 Discharged Recurring [facility] Start: 08-19-2022 ambulatory KEL MOSQUERA [facility] Start: 08-19-2022 End: 08-19-2022 Evaluation and management of inpatient [facility] Start: 08-19-2022 End: 08-19-2022 Subsequent hospital visit by physician Pankaj [facility] Comment on above: Unilateral primary o steoarthritis, left hip Start: 08-19-2022 End: 08-21-2022 ambulatory LUDMILA ZULETA [facility] Start: 08-03-2022 [facility] Start: 07-21-2022 End: 08-05-2022 Discharged Recurring [facility] Start: 06-15-2022 End: 06-15-2022 ambulatory [facility]cola [facility] Comment on above: Acute conjunctivitis of both eyes, unspecified acute conjunctivitis type (Primary Dx) Start: 06-15-2022 End: 06-15-2022 Telemedicine consultation with patient Eran Canchola MD Work Phone: [facility] Start: 03-31-2022 End: 03-31-2022 Patient encounter procedure Eran Canchola MD Work Phone: [facility] Comment on above: History of COVID-19 (Primary Dx); Fatigue, unspecified type; Diarrhea, unspecified type; SOB (shortness of breath); Hypertension, unspecified type; Morbid obesity with body mass index of 70 and over in adult (HCC) Start: 03-23-2022 End: 03-23-2022 ambulatory Carmen Jacob APRN.DOCUMENT IMAGING SPECIALIST Work Phone: [facility] Comment on above: Telehealth encounter for confirmed COVID-19 (Primary Dx) Start: 03-23-2022 End: 03-23-2022 Telemedicine consultation with patient Carmen Jacob APRN.DOCUMENT IMAGING SPECIALIST Work Phone: [facility] Start: 01-19-2022 End: 01-19-2022 Subsequent hospital visit by physician El [facility] Work Phone: Radiology Comment on above: Rib pain on left timothy e [R07.81] Start: 01-19-2022 End: 01-19-2022 Patient encounter procedure Eran Canchola MD Work Phone: [facility] Comment on above: LUQ abdominal pain ( Primary Dx); Rib pain on left side; Anxiety with depression; Chronic insomnia Start: 01-19-2022 Telephone encounter Carmen kruger APRN.CNP Work Phone: [facility] Comment on above: Opened In Error Start: 01-16-2022 Refill Eran Canchola MD Work Phone: [facility] Comment on above: Refill Request Start: 12-04-2021 End: 12-04-2021 ambulatory Aniket Lobato MD Work Phone: [facility] Comment on above: Gastroenteritis (Ksenia magdalene Dx) Start: 12-04-2021 End: 12-04-2021 Telemedicine consultation with patient Aniket Lobato MD Work Phone: [facility] Start: 04-09-2021 End: 04-09-2021 Subsequent hospital visit by physician Xr [facility] Work Phone: Radiology Comment on above: Left hip pain [M25.5 52] Start: 07-07-2017 End: 07-08-2017 Ambulatory RAMY ESTRADA Facility:[facility] Start: 06-29-2017 End: 2017 Ambulatory RAMY ESTRADA Facility:[facility] Start: 06-16-2017 End: 06-17-2017 Ambulatory RAMY ESTRADA Facility:[facility] Procedures Date Procedure Procedure Detail Performing Clinician Start: 01-17-2025 Radex forearm 2 views M lo Wiggins PA-C Work Phone: Start: 11-17-2023 Radiologic exam ches t 2 views Alejandro Wooten MD Work Phone: Start: 11-17-2023 INFLUENZA A&B MOLECU LAR (POC) Alejandro Wooten MD Work Phone: Start: 11-17-2023 STREP A MOLECULAR (POC) Alejandro Wooten MD Work Phone: Start: 07-19-2023 Urnls dip stick/tabl et rgnt auto w/o microscopy Trevor Jara DEMURRAGE CLERK.DOCUMENT IMAGING SPECIALIST, DNP Work Phone: Start: 06-29-2023 Gluc bld gluc mntr d ev cleared fda spec home use [facility] Provider Start: 05-20-2023 Radiologic exam ches t 2 views Alejandro Wooten MD Work Phone: Start: 10-28-[address] Orlin Canchola Work Phone: Start: 10-28-[address] Orlin Canchola Work Phone: Start: 01-19-2022 Radex ribs uni w/pos teroant ch minimum 3 views Eran Canchola MD Work Phone: Start: 11-25-2021 Adult depression scr eening assessment Aniket Lobato MD Work Phone: Start: 04-09-2021 Radex hip unilateral with pelvis 2-3 views Carmen Podlogar DEMURRAGE CLERK.DOCUMENT IMAGING SPECIALIST Work Phone: Start: 04-09-2021 Lipid 1996 panel - S hanna or Plasma Alejandro Wooten MD Work Phone: Clostridium difficil e detection Dr. Orlin Canchola Work Phone: Enteric Bacteriology Dr. June Canchola Work Phone: Giardia Antigen ([place]) Dr. Ramandeep Canchola Work Phone: Lactoferrin measurement Dr. Orlin Canchola Work Phone: Ova OR parasites identification Dr. Orlin Canchola Work Phone: Plan of Treatment Date Care Activity Detail Author Start: 05-10-2027 Urine microalbumin profile [facility] Start: 04-09-2026 Lipid 1996 panel - Serum or Plasma Lipid Screening [facility] Start: 04-09-2026 Lipid panel Lipid Screening [facility] Start: 04-09-2026 LIPID SCREEN LIPID SCREEN [facility] Start: 05-07-2025 Influenza vaccination Influenz a Vaccine (Season Ended) [facility] Start: 05-07-2024 Covid-19 Vaccine () Covid-19 Vaccine () [facility] Start: 05-07-2024 Covid-19 Vaccine ( season) Covid-19 Vaccine ( season) [facility] Start: 05-07-2024 Influenza vaccination Influenza Vacc ine (#1) [facility] Start: 09-06-2023 Depression Assessment Depression Ass [facility] Start: 08-20-2023 Hypertension/CHF/CAD Annual BMP Blood Test Hypertension/CHF/CAD Annual BMP Blood Test [facility] Start: 06-15-2023 ANNUAL PCP TEAM ITALIAN LECTURER KRAIG DISEASE VISIT ANNUAL PCP TEAM CHRONIC DISEASE VISIT [facility] Start: 05-07-2023 Covid-19 Vaccine ( season) Covid-19 Vaccine () [facility] Start: 05-07-2023 Influenza vaccination Influenza Vacc ine (#1) [facility] Start: 03-31-2023 ANNUAL PCP TEAM ITALIAN LECTURER KRAIG DISEASE VISIT ANNUAL PCP TEAM CHRONIC DISEASE VISIT [facility] Start: 03-23-2023 ANNUAL PCP TEAM ITALIAN LECTURER KRAIG DISEASE VISIT ANNUAL PCP TEAM CHRONIC DISEASE VISIT [facility] Start: 01-19-2023 ANNUAL PCP TEAM ITALIAN LECTURER KRAIG DISEASE VISIT ANNUAL PCP TEAM CHRONIC DISEASE VISIT [facility] Start: 01-14-2023 ANNUAL PCP TEAM ITALIAN LECTURER KRAIG DISEASE VISIT ANNUAL PCP TEAM CHRONIC DISEASE VISIT [facility] Start: 12-04-2022 ANNUAL PCP TEAM ITALIAN LECTURER KRAIG DISEASE VISIT ANNUAL PCP TEAM CHRONIC DISEASE VISIT [facility] Start: 11-25-2022 Adult depression screening assessment DEPRESSION SCREENING [facility] Start: 11-25-2022 BP CONTROLLED (<130/80) BP CONTROLLE D (<130/80) [facility] Start: 10-19-2022 [facility] Start: 09-06-2022 Depression Assessment Depression Ass essment [facility] Start: 08-11-2022 Adolescent depressio n screening assessment Depression Screening [facility] Start: 08-11-2022 Hepatitis C screening Hepatitis C Sc reening [facility] Start: 08-11-2022 HIV screening HIV Screening [facility] Start: 08-11-2022 Lipid panel Cholesterol Sc reening (Lipid Panel) [facility] Start: 08-11-2022 Social Influencers o f Health Screening Social Influencers of Health Screening [facility] Start: 05-07-2022 Influenza vaccination [facility] Start: 09-06-2021 DEPRESSION ASSESSMENT DEPRESSION ASS ESSMENT [facility] Start: 05-07-2021 Influenza vaccination INFLUENZA (#1) [facility] Start: 2002 DTaP,Tdap,and Td Vaccines (1 - Tdap) DTaP,Tdap,and Td Vaccines (1 - Tdap) [facility] Start: 2002 Hepatitis B Vaccine (1 of 3 - 19+ 3-dose series) Hepatitis B Vaccine (1 of 3 - 19+ 3-dose series) [facility] Start: 2001 BP CONTROLLED (<130/80) BP CONTROLLE D (<130/80) [facility] Start: 2001 Depression Screening Depression Scre ening [facility] Start: 1988 COVID-19 VACCINE (#1) COVID-19 VACCI NE (#1) [facility] Start: 1988 COVID-19 VACCINE (1) COVID-19 VACCIN E (1) [facility] Start: 1983 COVID-19 VACCINE (#1) COVID-19 VACCI NE (#1) [facility] Start: 1983 HEPATITIS B (1 of 3 - 3-dose series) HEPATITIS B (1 of 3 - 3-dose series) [facility] Start: 1983 Hepatitis B Vaccine (1 of 3 - 3-dose series) Hepatitis B Vaccine (1 of 3 - 3-dose series) [facility] Start: 1985 Hepatitis B Vaccines (1 of 3 - 3-dose series) Hepatitis B Vaccines (1 of 3 - 3-dose series) [facility] Glucose [Mass/volume ] in Serum or Plasma GLUCOSE, BLOOD (POC) Lab Routine Rash Ordered: 06/29/2023 [facility] Work Phone: Comment on above: Ordered: 06/29/2023 Ova and parasites identified in Unspecified specimen by Light microscopy [facility] Procedure [facility] SARS-CoV-2 (COVID-19 ) RNA [Presence] in Respiratory specimen by MELBA with probe detection COVID NAAT, UPPER RESPIRATORY, ROUTINE Microbiology Routine Sore throat Acute cough SOB (shortness of breath) Wheezing 11/17/2023 12:29 PM EDT [facility] Work Phone: Ultrasound elastography [facility] Abdomen limited [facility] End: 08-19-2022 XR Pelvis 1-2 Views [facility] Work Phone: Comment on above: Once for 1 Occurrenc es starting 08/19/2022 until 08/19/2022 [facility] c [facility] Immunizations Immunization Date Immunization Notes Care Provider Taya trotter 07-15-2023 influenza virus vacc ine, unspecified formulation Xr Silva Work Phone: [facility] 08-28-2019 influenza, injectabl e, quadrivalent, contains preservative Aniket Lobato MD Work Phone: [facility] 08-28-2019 influenza virus vacc ine, unspecified formulation McNa 2 [facility] Payers Date Payer Category Payer Unknown [id number] 39 2023 Self-pay [id number] 2018 [employer] Blue Shield [id number] 2018 Unknown [employer] PPO OOS [id number] 2018-Present [phone] [address] [place] [address] PPO [id number] 2018 Unknown [employer] PPO OOS [id number] 2018-Present [phone] [address] [place] [address] PPO [id number] 1983 Unknown [id number] 1983 Unknown [id number] 1983 Unknown [id number] 1959 Unknown [id number] Unknown [id number] Unknown [id number] Unknown [id number] Social History Date Type Detail Facility Start: 10-13-2018 End: 09-07-2024 Tobacco smoking status NHIS Ex-smoker [facility] Work Phone: Start: 07-13-1996 End: 07-13-2011 History of tobacco use Current smoker [facility] Work Phone: Start: 07-13-1996 End: 07-13-2011 History of tobacco use Cigarette Smoker [facility] Work Phone: Start: 10-13-2018 End: 10-04-2022 Cigarettes smoked current (pack per day) - Reported 1.5 [facility] Start: 10-13-2018 End: 09-07-2024 Tobacco use and exposure Smokeless tobacco non-user [facility] Work Phone: Start: 11-25-2021 End: 09-07-2024 Alcohol intake Current drinker of alcohol (finding) [facility] Start: 04-09-2021 History SDOH Alcohol Frequency 5 [facility] Start: 04-09-2021 End: 06-15-2022 History SDOH Alcohol Std Drinks 2 [facility] Start: 04-09-2021 History SDOH Alcohol Binge 3 [facility] Start: 10-13-2018 History SDOH Alcohol Comment very rare 1-4 drinks/year special occassions [facility] Start: 04-09-2021 End: 11-25-2021 History SDOH Social Connections Get Together 1 [facility] Start: 04-09-2021 History SDOH Social Connections Living 8 [facility] Start: 04-09-2021 Education 15 [facility] Start: 1985 Sex Assigned At Not on file [facility] Start: 03-10-2021 End: 08-17-2022 Exposure to SARS-CoV-2 (event) Not sure [facility] Start: 03-21-2022 End: 03-31-2022 Exposure to SARS-CoV-2 (event) Yes [facility] Start: 08-17-2022 Alcohol Comment 12 DRINKS PER WEEK [facility] Start: 07-28-2022 End: 10-16-2022 Tobacco smoking status CAIS Unknown if ever smoked [facility] Start: 04-17-2020 None [facility] Start: 04-17-2020 Spouse/ Significant Other;With Family [facility] Start: 05-30-2020 Non-smoker [facility] Start: 1985 Sex Assigned At Male [facility] Start: 04-09-2021 End: 10-04-2022 Social connection and isolation panel [facility] Do you belong to any clubs or organizations such as buddhism groups, unions, fraternal or athletic groups, or school groups? No [facility] Attends Club or Organization Meetings Not on file [facility] Are you now , , , , never or living with a partner? Living with partner [facility] How often to you hav e a drink containing alcohol? 4 or more times a week [facility] How many standard dr inks containing alcohol do you have on a typical day? 3 or 4 [facility] How often do you hav e 6 or more drinks on 1 occasion? Monthly [facility] How hard is it for y ou to pay for the very basics like food, housing, medical care, and heating Somewhat hard [facility] Do you feel stress - tense, restless, nervous, or anxious, or unable to sleep at night because your mind is troubled all the time - these days [OSQ] Very much [facility] (I/We) worried richard er (my/our) food would run out before (I/we) got money to buy more. Never true [facility] How often do you hav e 6 or more drinks on 1 occasion? Monthly [facility] Medical Equipment Procedure Code Equipment Code Equipment Origin al Text Equipment Identifier Dates Ceramic Roger Dela Cruz d 08/19 36mm 4 - [facility] - [id number] [facility] Start: 08-19-2022 Clinical Notes 04-09-2021 to 01-17-2025 Fanny Wiggins PA-C - 01/17/2025 10:41 AM KAPILAletha Duval Tech - 01/17/2025 9:50 AM Pietro Acuna APRN.DOCUMENT IMAGING SPECIALIST - 09/07/2024 12:18 PM Anna Nowak LPN - 11/17/2023 11:59 AM EDT Note Date & Type Note Facility 01-17-2025 Note HNO ID: [id number] Author: FANNY WIGGINS PA-C Service: ? Author Type: Physician Solar Panel Installation Supervisor Type: Progress Notes Filed: 01/17/2025 10:58 Note Text: This note was created using [employer] Subjective Neil Garces is a 39 year old male. Patient is a 39-year-old male who complains of redness, pain and swelling to his left forearm secondary to a blunt trauma injury that the patient sustained 2 days ago. Patient reports that he was working in his yard when a large tree branch struck his left forearm. Patient reports that he sustained to his facial abrasions and is noted increased redness and swelling to the sites. Patient reports no bleeding, serous or purulent fluid to the areas. Patient describes diffuse pain and swelling to his left forearm. 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 Patient denies pain or injury to his left elbow and wrist. Patient is diabetic. Arm Injury Review of Systems Musculoskeletal: Pain and Swelling Left Forearm Skin: Positive for wound. Redness to Abrasions Left Forearm All other systems reviewed and are negative. Objective BP 128/82 Pulse 86 Temp (!) 30 ?C (86 ?F) Resp 20 Wt (!) 226 kg (498 lb 3.8 oz) SpO2 95% BMI 65.73 kg/m? Physical Exam Vitals and nursing note reviewed. Constitutional: Appearance: Normal appearance. He is normal weight. HENT: Head: Normocephalic and atraumatic. Nose: Nose normal. Mouth/Throat: Mouth: Mucous membranes are moist. Pharynx: Oropharynx is clear. Eyes: Extraocular Movements: Extraocular movements intact. Conjunctiva/sclera: Conjunctivae normal. Pupils: Pupils are equal, round, and reactive to light. Cardiovascular: Rate and Rhythm: Normal rate. Pulses: Normal pulses. Pulmonary: Effort: Pulmonary effort is normal. Breath sounds: Normal breath sounds. Musculoskeletal: General: Swelling, tenderness and signs of injury present. No deformity. Normal range of motion. Cervical back: Normal range of motion and neck supple. Comments: Diffuse edema is noted to the left forearm. Mild tenderness is noted with palpation. No crepitus or deformity is noted with palpation of left forearm. There are 4 discrete skin wounds noted to the posterior aspect of the left forearm. Patient states that 2 of the wounds are due to his scratching injury not related to the tree branch. There are two 0.5 cm abrasions that the patient states were caused by the tree branch contact. There is significant localized erythema noted to all 4 sites. No induration or fluctuance is noted. No bleeding, serous or purulent fluid is noted. 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 Muscle strength is 5/5. Patient demonstrates full range of motion in flexion extension to the left elbow and wrist. Skin: General: Skin is warm and dry. Capillary Refill: Capillary refill takes less than 2 seconds. Findings: Erythema present. No bruising. Neurological: General: No focal deficit present. Mental Status: He is alert and oriented to person, place, and time. Cranial Nerves: Cranial nerve deficit: .smdiag. Psychiatric: Mood and Affect: Mood normal. Behavior: Behavior normal. Thought Content: Thought content normal. Judgment: Judgment normal. Assessment and Plan Physical exam findings as noted above. X-ray left forearm is negative for acute findings as reported by the radiologist and the radiologist reports a large amount of soft tissue edema to the left forearm which is consistent with the physical exam findings. Patient was provided with prescriptions for doxycycline 100 mg and Bactroban 2% ointment. Wound care instructions were discussed. Patient was clearly advised to report to the emergency department if he notes any acute worsening of his symptoms. Additional supportive care was reviewed the patient verbalizes excellent understanding of same. CLINICAL IMPRESSION: Contusion Left Forearm; Wound Cellulitis Left Forearm ASSESSMENT/PLAN: 1. Contusion of left forearm, initial encounter - ICD9: 923.10, ICD10: S50.12XA (primary diagnosis) - XR FOREARM GENERAL 2V AP/LAT LEFT 2. Wound cellulitis - ICD9: 682.9, ICD10: L03.90 - MUPIROCIN 2 % TOPICAL OINTMENT - DOXYCYCLINE HYCLATE 100 MG TABLET MDM Amount and/or Complexity of Data Reviewed Tests in the radiology section of CPT?: ordered and reviewed Risk of Complications, Morbidity, and/or Mortality Presenting problems: low Diagnostic procedures: low Management options: justin Wiggins PA-C [facility] 01-17-2025 History of Present illness Narrative This note was created using [employer] Subjective Neil Garces is a 39 year old male. Patient is a 39-year-old male who complains of redness, pain and swelling to his left forearm secondary to a blunt trauma injury that the patient sustained 2 days ago. Patient reports that he was working in his yard when a large tree branch struck his left forearm. Patient reports that he sustained to his facial abrasions and is noted increased redness and swelling to the sites. Patient reports no bleeding, serous or purulent fluid to the areas. Patient describes diffuse pain and swelling to his left forearm. 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 Patient denies pain or injury to his left elbow and wrist. Patient is diabetic. Arm Injury Review of Systems Musculoskeletal: Pain and Swelling Left Forearm Skin: Positive for wound. Redness to Abrasions Left Forearm All other systems reviewed and are negative. Objective BP 128/82 Pulse 86 Temp (!) 30 C (86 F) Resp 20 Wt (!) 226 kg (498 lb 3.8 oz) SpO2 95% BMI 65.73 kg/m Physical Exam Vitals and nursing note reviewed. Constitutional: Appearance: Normal appearance. He is normal weight. HENT: Head: Normocephalic and atraumatic. Nose: Nose normal. Mouth/Throat: Mouth: Mucous membranes are moist. Pharynx: Oropharynx is clear. Eyes: Extraocular Movements: Extraocular movements intact. Conjunctiva/sclera: Conjunctivae normal. Pupils: Pupils are equal, round, and reactive to light. Cardiovascular: Rate and Rhythm: Normal rate. Pulses: Normal pulses. Pulmonary: Effort: Pulmonary effort is normal. Breath sounds: Normal breath sounds. Musculoskeletal: General: Swelling, tenderness and signs of injury present. No deformity. Normal range of motion. Cervical back: Normal range of motion and neck supple. Comments: Diffuse edema is noted to the left forearm. Mild tenderness is noted with palpation. No crepitus or deformity is noted with palpation of left forearm. There are 4 discrete skin wounds noted to the posterior aspect of the left forearm. Patient states that 2 of the wounds are due to his scratching injury not related to the tree branch. There are two 0.5 cm abrasions that the patient states were caused by the tree branch contact. There is significant localized erythema noted to all 4 sites. No induration or fluctuance is noted. No bleeding, serous or purulent fluid is noted. 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 Muscle strength is 5/5. Patient demonstrates full range of motion in flexion extension to the left elbow and wrist. Skin: General: Skin is warm and dry. Capillary Refill: Capillary refill takes less than 2 seconds. Findings: Erythema present. No bruising. Neurological: General: No focal deficit present. Mental Status: He is alert and oriented to person, place, and time. Cranial Nerves: Cranial nerve deficit: .smdiag. Psychiatric: Mood and Affect: Mood normal. Behavior: Behavior normal. Thought Content: Thought content normal. Judgment: Judgment normal. Assessment and Plan Physical exam findings as noted above. X-ray left forearm is negative for acute findings as reported by the radiologist and the radiologist reports a large amount of soft tissue edema to the left forearm which is consistent with the physical exam findings. Patient was provided with prescriptions for doxycycline 100 mg and Bactroban 2% ointment. Wound care instructions were discussed. Patient was clearly advised to report to the emergency department if he notes any acute worsening of his symptoms. Additional supportive care was reviewed the patient verbalizes excellent understanding of same. CLINICAL IMPRESSION: Contusion Left Forearm; Wound Cellulitis Left Forearm ASSESSMENT/PLAN: 1. Contusion of left forearm, initial encounter - ICD9: 923.10, ICD10: S50.12XA (primary diagnosis) - XR FOREARM GENERAL 2V AP/LAT LEFT 2. Wound cellulitis - ICD9: 682.9, ICD10: L03.90 - MUPIROCIN 2 % TOPICAL OINTMENT - DOXYCYCLINE HYCLATE 100 MG TABLET MDM Amount and/or Complexity of Data Reviewed Tests in the radiology section of CPT : ordered and reviewed Risk of Complications, Morbidity, and/or Mortality Presenting problems: low Diagnostic procedures: low Management options: justin Wiggins PA-C documented in this encounter [facility] 01-17-2025 History of Present illness Narrative Radiology Service Progress Note PATIENT NAME: Neil Garces DATE OF SERVICE: January 17, 2025 TIME: 10:00 AM PATIENT IDENTITY VERIFICATION COMPLETED USING TWO (2) IDENTIFIERS: Name and Date of confirmed by patient verbally. FALL SCREENING: Has the patient had 2 falls in the last year or 1 fall with injury or currently using an Ambulatory Assistive Device (Walker, Cane, Wheelchair, Crutches, etc.)? No PATIENT GENDER DATA: Assigned male at PATIENT RELEVANT IMPLANT DATA REVIEWED: Not Applicable PATIENT PRESENTS WITH AN IMPLANTABLE OR ATTACHED ASSURANCE SENIOR MANAGER: No RADIOLOGY DEPARTMENT: General X-ray: Exam(s) Completed: Upper Extremity X-Ray(s): Forearm, left PERIPHERAL IV DATA: Not applicable SIGNED BY: Dileep Shaffer January 17, 2025 10:00 AM documented in this encounter [facility] 01-17-2025 Note HNO ID: [id number] Author: ALETHA COOPER Tech Service: ? Author Type: Technologist Type: Progress Notes Filed: 01/17/2025 10:05 Note Text: Radiology Service Progress Note PATIENT NAME: Neil Garces DATE OF SERVICE: January 17, 2025 TIME: 10:00 AM PATIENT IDENTITY VERIFICATION COMPLETED USING TWO (2) IDENTIFIERS: Name and Date of confirmed by patient verbally. FALL SCREENING: Has the patient had 2 falls in the last year or 1 fall with injury or currently using an Ambulatory Assistive Device (Walker, Cane, Wheelchair, Crutches, etc.)? No PATIENT GENDER DATA: Assigned male at PATIENT RELEVANT IMPLANT DATA REVIEWED: Not Applicable PATIENT PRESENTS WITH AN IMPLANTABLE OR ATTACHED ASSURANCE SENIOR MANAGER: No RADIOLOGY DEPARTMENT: General X-ray: Exam(s) Completed: Upper Extremity X-Ray(s): Forearm, left PERIPHERAL IV DATA: Not applicable SIGNED BY: Dileep Shaffer January 17, 2025 10:00 AM [facility] 09-07-2024 Note HNO ID: [id number] Author: PIETRO KELLY APRN.RACHEL Service: ? Author Type: Nurse Practitioner Type: Progress Notes Filed: 09/07/2024 12:24 Note Text: Nontoxic-appearing male presents urgent care chief plaint sinus pressure. Rates her sinus pressure 3 out of 10. Presents today due to new onset visual changes. Patient states when he is reading his vision is going blurry and black and cannot see for short period time and then patient returns. With presenting symptoms recommend be seen by ophthalmology. Will reach out to family eye doctor if unable to be seen by ophthalmology will be seen in ED. Pietro Kelly APRN.RACHEL [facility] 09-07-2024 History of Present illness Narrative Nontoxic-appearing male presents urgent care chief plaint sinus pressure. Rates her sinus pressure 3 out of 10. Presents today due to new onset visual changes. Patient states when he is reading his vision is going blurry and black and cannot see for short period time and then patient returns. With presenting symptoms recommend be seen by ophthalmology. Will reach out to family eye doctor if unable to be seen by ophthalmology will be seen in ED. Pietro Kelly APRN.RACHEL documented in this encounter [facility] 11-17-2023 Nurse Note 2.5 solution aerosol treatment given per provider's orders. Prior to treatment O2 sat is 97%. Treatment completed. O2 sat is 97%. Tolerated well. Anna Rapp LPN documented in this encounter [facility] 11-17-2023 History of Present illness Narrative Radiology Service Progress Note PATIENT NAME: Neil Garces DATE OF SERVICE: November 17, 2023 TIME: 12:00 PM PATIENT IDENTITY VERIFICATION COMPLETED USING TWO (2) IDENTIFIERS: Name and Date of confirmed by patient verbally. FALL SCREENING: Has the patient had 2 falls in the last year or 1 fall with injury or currently using an Ambulatory Assistive Device (Walker, Cane, Wheelchair, Crutches, etc.)? No PATIENT GENDER DATA: Male PATIENT RELEVANT IMPLANT DATA REVIEWED: Not Applicable PATIENT PRESENTS WITH AN IMPLANTABLE OR ATTACHED ASSURANCE SENIOR MANAGER: No RADIOLOGY DEPARTMENT: General X-ray: Exam(s) Completed: Chest X-Ray PERIPHERAL IV DATA: Not applicable SIGNED BY: RT José(R) November 17, 2023 12:00 PM documented in this encounter [facility] 11-17-2023 History of Present illness Narrative Patient presents with: Sore Throat: ST, SOB, muscle tightness in back, cough and congestion x 1 day HPI: Feeling sick since yesterday. Positive symptoms: Cough, Sore throat, upper back Aches/tight, Shortness of breath (OK at rest, but dyspnea on exertion), Chest tightness, mild headache Negative symptoms: Nasal Congestion, Rhinorrhea, Fever, Vomiting, Diarrhea, OTC: none. PHx of shortness of breath with illness treated with albuterol and steroid. Reports he is compliant with medications and morning sugars have been running around 130. PAST MEDICAL HISTORY Diagnosis Date Abdominal pain, generalized 05/2020 Alcohol consumption binge drinking Diverticulitis Hypertension Morbid obesity with BMI of 60.0-69.9, adult (HCC) AIDE (obstructive sleep apnea) PTSD (post-traumatic stress disorder) service Torn meniscus left knee repaired Vitamin D deficiency Vitamin D insufficiency MEDICATIONS: Current Outpatient Medications Medication Sig busPIRone (BUSPAR) 10 mg tablet QUEtiapine (SEROQUEL) 50 mg tablet OZEMPIC 0.25 mg or 0.5 mg (2 mg/3 mL) pen traZODone (DESYREL) 50 mg tablet Take 50 mg by mouth daily at bedtime. glipiZIDE (GLUCOTROL) 5 mg tablet Take 5 mg by mouth once daily. budesonide, enteric coated (ENTOCORT EC) 3 mg 24 hr capsule Take 3 mg by mouth three times daily. sertraline (ZOLOFT) 100 mg tablet Take 1 tablet by mouth once daily. (Patient taking differently: Take 100 mg by mouth once daily. 150 mg) hydroCHLOROthiazide (HYDRODIURIL, ESIDRIX) 25 mg tablet Take 1 tablet by mouth once daily. lisinopril (ZESTRIL, PRINIVIL) 40 mg tablet Take 1 tablet by mouth once daily. albuterol HFA (VENTOLIN HFA) 90 mcg/actuation inhaler Inhale 2 Puffs as instructed every 4 hours as needed. CPAP Initiate Auto PAP @ 11-20 cm of water with humidification. Mask (per patient preference) optional chin strap (if indicated) , filters, tubing, humidifier and lifetime supplies. (Patient not taking: Reported on 07/19/2023) No current facility-administered medications for this visit. ALLERGIES: ALLERGIES No Known Allergies VITALS: BP 152/86 Pulse 79 Temp 36.8 C (98.3 F) (Tympanic) Resp 16 Wt (!) 232.6 kg (512 lb 12.6 oz) SpO2 97% BMI 67.65 kg/m PHYSICAL EXAM: GEN: mildly ill appearing, obese HEENT: PERRL, EOMI, conjunctiva clear Ears: canals clear. TMs without erythema, bulge, or effusion Sinuses: non-tender frontal sinus, non-tender maxillary sinuses Throat: moist mucous membranes, mild erythema, no exudate Neck: supple, no thyromegaly, no lymphadenopathy HEART: regular rate and rhythm, no murmurs LUNGS: diminished but clear to auscultation, no wheezes or crackles; increased WOB with exertion, not dyspneic with short conversation Latest Ref Rng 06/29/2022 Hemoglobin A1C 4.3 - 5.6 % 7.7 (H) ASSESSMENT/PLAN: 1. Sore throat - ICD9: 462, ICD10: J02.9 (primary diagnosis) 2. Acute cough - ICD9: 786.2, ICD10: R05.1 3. SOB (shortness of breath) - ICD9: 786.05, ICD10: R06.02 4. Wheezing - ICD9: 786.07, ICD10: R06.2 - STREP A MOLECULAR (POC) - negative - INFLUENZA A&B MOLECULAR (POC) - negative - COVID NAAT, UPPER RESPIRATORY, ROUTINE - XR CHEST 2V FRONTAL/LAT - negative - ALBUTEROL SULFATE 2.5 MG/3 ML (0.083 %) SOLUTION FOR NEBULIZATION - improved shortness of breath. Refill albuterol inhaler. - PREDNISONE 20 MG TABLET - short taper Call PCP if COVID is positive to discuss antiviral treatment. Follow up in the ER with worsening cough, worsening shortness of breath, increasing chest pain, or late onset fever. Alejandro Wooten MD documented in this encounter [facility] 07-19-2023 Instructions Trevor Jara APRN.PERLA RAMOS - 07/19/2023 1:53 PM EST Follow up if symptoms do not improve Keep area dry Gently retract foreskin daily The following approved medication requests have been transmitted electronically. Requested Prescriptions Signed Prescriptions Disp Refills clotrimazole-betamethasone (LOTRISONE) cream 45 g 0 Sig: Apply to affected area two times a day. Return to the clinic or seek care at Express[facility]Urgent Care for any worsening signs or symptoms: such as fevers, chills, worsening pain, or urinary symptoms.. For severe symptoms seek care at the closest ER. Plan of care, medicaiton side effects and management reviewed with patient. Healthy Habits: Recommend regular physical activity, nutrition and healthy eating habits. Consume a variety of foods every day focusing on fruits, vegetables and lean meats). Eat foods low in fat, saturated fat and cholesterol. Eat a limited amount of salt and sodium. Drink adequate amounts of water and limit sugary drinks. Exercise portion control in meal selection. Establish a mindset of a wellness approach to health. Thank you for allowing me to provide your care today. I look forward to seeing you again and maintaining your health. Trevor Jara APRN.PERLA RAMOS documented in this encounter [facility] 07-19-2023 History of Present illness Narrative Neil Garces Referred by: No referring provider 07/19/2023 CC: tinea cruris follow up HPI: 38 year old, male presents for evaluation of Tinea cruris. Hx sig for: HTN, Obesity, AIDE, PTSD, DM2 Duration: 4 weeks Here for follow up with Urology. Seen in [facility] and then referred to Urology and seen by ONIEL Jones. Diagnosed with Tinea Cruris. Started on Diflucan. Some concern that may have had overlapping cellulitis in the region also. Started on 10 days of Keflex. Symptoms have improved. Redness and irritation have resolved. Is circumcised, but has excess foreskin that is difficult to retract. Denies urinary symptoms. No dysuria or freq. No f/c. ROS: Urinary sx: none Hematuria: none Patient Entered Questionnaires: PROMIS Global Health PROMIS Global Health Scale 04/09/2021 11/25/2021 06/15/2022 Physical Health Percentile 15 % 31 % 10 % Mental Health Percentile 5 % 26 % 2 % Percentiles provide an indication of how the patient's score ranks in relation to the general population. Higher percentile rankings indicate better function/quality of life. 50th percentile is the average of the general population and indicates half of respondents had a worse score. PAST MEDICAL HISTORY Diagnosis Date Abdominal pain, generalized 05/2020 Alcohol consumption binge drinking Diverticulitis Hypertension Morbid obesity with BMI of 60.0-69.9, adult (HCC) AIDE (obstructive sleep apnea) PTSD (post-traumatic stress disorder) service Torn meniscus left knee repaired Vitamin D deficiency Vitamin D insufficiency PAST SURGICAL HISTORY Procedure Laterality Date COLONOSCOPY 2011 anal fissure COLONOSCOPY FLX DX W/COLLJ SPEC WHEN PFRMD 06/04/2020 Colonoscopy COLONOSCOPY FLX DX W/COLLJ SPEC WHEN PFRMD 01/31/2019 Colonoscopy ESOPHAGOGASTRODUODENOSCOPY TRANSORAL DIAGNOSTIC 06/04/2020 EGD KNEE SURGERY HX 08/2017 left knee meniscal repair TOTAL HIP REPLACEMENT Left 08/2022 Current Outpatient Medications Medication Sig traZODone (DESYREL) 50 mg tablet Take 50 mg by mouth daily at bedtime. glipiZIDE (GLUCOTROL) 5 mg tablet Take 5 mg by mouth once daily. budesonide, enteric coated (ENTOCORT EC) 3 mg 24 hr capsule Take 3 mg by mouth three times daily. albuterol HFA (VENTOLIN HFA) 90 mcg/actuation inhaler Inhale 2 Puffs as instructed every 4 hours as needed. sertraline (ZOLOFT) 100 mg tablet Take 1 tablet by mouth once daily. (Patient taking differently: Take 100 mg by mouth once daily. 150 mg) hydroCHLOROthiazide (HYDRODIURIL, ESIDRIX) 25 mg tablet Take 1 tablet by mouth once daily. lisinopril (ZESTRIL, PRINIVIL) 40 mg tablet Take 1 tablet by mouth once daily. clotrimazole-betamethasone (LOTRISONE) cream Apply to affected area two times a day. fluconazole (DIFLUCAN) 150 mg tablet Take 1 tablet every other day for 2 weeks. CPAP Initiate Auto PAP @ 11-20 cm of water with humidification. Mask (per patient preference) optional chin strap (if indicated) , filters, tubing, humidifier and lifetime supplies. (Patient not taking: Reported on 07/19/2023) No current facility-administered medications for this visit. Allergies: Patient has no known allergies. Family Hx: Denies family history of genitourinary malignancy Social History Tobacco Use Smoking status: Former Packs/day: 1.50 Years: 15.00 Additional pack years: 0.00 Total pack years: 22.50 Types: Cigarettes Quit date: 07/13/2011 Years since quittin.0 Smokeless tobacco: Never Vaping Use Vaping Use: Never used Substance Use Topics Alcohol use: Yes Alcohol/week: 8.0 standard drinks of alcohol Types: 8 Shots of liquor per week Drug use: Not Currently Types: Marijuana Occupation/exposures: None LABS: Component Latest Ref Rng & Units 07/19/2023 GLUCOSE UA (POCT) Negative mg/dL 500 (A) BILIRUBIN UA (POCT) Negative Negative KETONE UA (POCT) Negative mg/dL Negative SPECIFIC GRAVITY UA (POCT) 1.005 - 1.030 1.020 HEMOGLOBIN/BLOOD UA (POCT) Negative Negative PH UA (POCT) 4.5 - 8.0 5.5 PROTEIN UA (POCT) Negative mg/dL Negative UROBILINOGEN UA (POCT) Normal E.U./dL 0.2 NITRITE UA (POCT) Negative Negative LEUKOCYTES UA (POCT) Negative Negative COLOR UA (POCT) Dark yellow CLARITY UA (POCT) Clear OTHER DATA: Creatinine Creatinine Date Value Ref Range Status 10/22/2021 0.62 (L) 0.73 - 1.22 mg/dL Final 03/19/2020 0.67 (L) 0.73 - 1.22 mg/dL Final 09/25/2019 0.78 0.73 - 1.22 mg/dL Final 08/28/2019 0.65 (L) 0.73 - 1.22 mg/dL Final PSA No results found for: PSA Review of Systems: PAIN ASSESSMENT: CURRENTLY HAVING NO PAIN GENERAL: No weight loss, malaise or fevers GI: No nausea, vomiting MUSCULOSKELETAL: Negative for generalized joint pain SKIN: Negative for rash HEMATOLOGY/LYMPHOLOGY: Negative for swollen nodes All other systems reviewed and noncontributory VITALS: BP 130/90 (BP Site: Right Arm, BP Position: Sitting, BP Cuff Size: Large Adult) Pulse 98 Temp 36.1 C (96.9 F) (Temporal) Resp 18 Ht 185.4 cm (6' 1) Wt (!) 229.2 kg (505 lb 3.2 oz) SpO2 97% BMI 66.65 kg/m GENERAL: alert, no distress, normal affect. Morbidly Obese. RESPIRATORY: normal effort ABDOMEN: soft, non-tender EXTREMITIES: normal SKIN: Mild hyperpigmentation in the groin area bilaterally, No redness. NEUROLOGIC: normal GENITAL: Phallus: normal, buried penis in fat pad, circumcised, no lesions, minimal paraphimosis Meatus: orthotopic, patent, no discharge Scrotum: no lesions, normal rugae ASSESSMENT/PLAN: 1. Tinea cruris - ICD9: 110.3, ICD10: B35.6 (primary diagnosis) Chronic - Improved Completed all of his diflucan and keflex. Much improved. Slight irritation still present. Use Lotrisone. Plan: Lotrisone cream bid - Follow up with PCP if symptoms persist or do not improved after 4-6 weeks of treatment. - UA DIP, URINE (POC) - CLOTRIMAZOLE-BETAMETHASONE 1 %-0.05 % TOPICAL CREAM - bid 2. Paraphimosis - ICD9: 605, ICD10: N47.2 Developed with his most recent tinea outbreak Trial of Lotrisone for 1- 2 weeks. - CLOTRIMAZOLE-BETAMETHASONE 1 %-0.05 % TOPICAL CREAM 3. Screening for genitourinary condition - ICD9: V81.6, ICD10: Z13.89 UA + for glu, otherwise neg. - UA DIP, URINE (POC) 4. Morbid obesity with BMI of 60.0-69.9, adult (HCC) - ICD9: 278.01, V85.44, ICD10: E66.01, Z68.44 Chronic - not well controlled. Contributes to his buried penis and his tinea. Chronic and stable weight Recommend regular physical activity, nutrition and healthy eating habits. Consume a variety of foods every day focusing on fruits, vegetables and lean meats). Eat foods low in fat, saturated fat and cholesterol. Eat a limited amount of salt and sodium. Drink adequate amounts of water and limit sugary drinks. Exercise portion control in meal selection. Establish a mindset of a wellness approach to health. 5. 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 Trevor Jara DNP, RACHEL Department of Urology [facility] documented in this encounter [facility] 2023 History of Present illness Narrative Neil Garces [address] [place] [address] is a 38 year old male and is here today at the request of No referring provider defined for this encounter.. My final recommendation will be communicated back to the requesting physician by way of shared medical record or letter. Mr. Garces presents with chief complaints of: For yeast infection HISTORY OF PRESENT ILLNESS: Coming for yeast infection, lesion area on agential Pt [facility], was given nystatin, and given diflucan Pt stated noted to have evy area, painful around genital area and inner thigh area that started Wednesday morning. Stated that woke up and was raw and irritated. Pt denies being bitten or any change is soaps or detergents Denies any SOB, CP Denies any burning with urination or gross hematutia Stated that urinary stream is good. Pt stated that is diabetic and sugars are not being controled running in 400-500 for some time now. pt stated that have not taking diabetic medication for 2 months. Location: genital irritation/lesion Pain Character: none Severity Scale: none Duration: few days Timing: constantly Modifying Factors: None Associated signs and symptoms: genital lesions irritation PAST MEDICAL HISTORY Diagnosis Date Abdominal pain, generalized 05/2020 Alcohol consumption binge drinking Diverticulitis Hypertension Morbid obesity with BMI of 60.0-69.9, adult (HCC) AIDE (obstructive sleep apnea) PTSD (post-traumatic stress disorder) service Torn meniscus left knee repaired Vitamin D deficiency Vitamin D insufficiency PAST SURGICAL HISTORY Procedure Laterality Date COLONOSCOPY 2012 anal fissure COLONOSCOPY FLX DX W/COLLJ SPEC WHEN PFRMD 06/04/2020 Colonoscopy COLONOSCOPY FLX DX W/COLLJ SPEC WHEN PFRMD 01/31/2019 Colonoscopy ESOPHAGOGASTRODUODENOSCOPY TRANSORAL DIAGNOSTIC 06/04/2020 EGD KNEE SURGERY HX 08/2017 left knee meniscal repair FAMILY HISTORY Problem Relation Age of Onset Diabetes Mother Hypertension Mother Heart Mother Anxiety disorder Mother Depression Mother Heart Failure Father Diabetes Father Stroke Father Hypertension Father Bipolar disorder Brother Diabetes Maternal Grandmother Cancer Paternal Grandfather throat Alcohol/Drug Brother alcohol No Known Problems Son Social History Tobacco Use Smoking status: Former Packs/day: 1.50 Years: 15.00 Additional pack years: 0.00 Total pack years: 22.50 Types: Cigarettes Quit date: 07/13/2011 Years since quittin.9 Smokeless tobacco: Never Vaping Use Vaping Use: Never used Substance Use Topics Alcohol use: Yes Comment: very rare 1-4 drinks/year special occassions Drug use: No MEDICATIONS: Current Outpatient Medications Medication Sig cephALEXin (KEFLEX) 500 mg capsule Take 1 capsule by mouth two times a day for 10 days. nystatin (MYCOSTATIN) cream Apply to affected area two times a day for 14 days. fluconazole (DIFLUCAN) 150 mg tablet Take 1 tablet every other day for 2 weeks. traZODone (DESYREL) 50 mg tablet Take 50 mg by mouth daily at bedtime. glipiZIDE (GLUCOTROL) 5 mg tablet Take 5 mg by mouth once daily. budesonide, enteric coated (ENTOCORT EC) 3 mg 24 hr capsule Take 3 mg by mouth three times daily. albuterol HFA (VENTOLIN HFA) 90 mcg/actuation inhaler Inhale 2 Puffs as instructed every 4 hours as needed. sertraline (ZOLOFT) 100 mg tablet Take 1 tablet by mouth once daily. (Patient taking differently: Take 100 mg by mouth once daily. 150 mg) hydroCHLOROthiazide (HYDRODIURIL, ESIDRIX) 25 mg tablet Take 1 tablet by mouth once daily. lisinopril (ZESTRIL, PRINIVIL) 40 mg tablet Take 1 tablet by mouth once daily. CPAP Initiate Auto PAP @ 11-20 cm of water with humidification. Mask (per patient preference) optional chin strap (if indicated) , filters, tubing, humidifier and lifetime supplies. No current facility-administered medications for this visit. ALLERGY: ALLERGIES No Known Allergies REVIEW OF SYSTEMS GENERAL: No fever, no fatigue and no weight loss. HEAD & NECK: No headache, no blurred vision and no hearing loss. CARDIOVASCULAR: No chest pain, no palpitations and no leg edema. RESPIRATORY: No cough, wheezing and no shortness of breath. : As indicated in HPI. GI: No epigastric discomfort, no blood in stool and no changes in bowel habits. MUSCLOSKELETAL: No neck pain, no back anin and no joint pain. SKIN: No varicose veins, no rash and no abnormal itching. NEUROLOGICAL: No numbness, no seizures and no tremor. BLOOD: No ekimosis, no hematomas or no bleeding from the gums. PHYSICAL EXAM: VITALS: BP 152/101 Temp (!) 33.3 C (92 F) Wt (!) 230.4 kg (508 lb) BMI 68.90 kg/m GENERAL: Alert, oriented and in no distress. HEAD: Conjuctiva: no palor Sclera: no jaundice NECK: No enlarged thyroid, no palpable lymph nodes, and no engorged neck veins. CHEST: Bilateral symetrical, resp mildly labored with activity due to size ABDOMEN: Soft, non tender with no masses or organomegaly. No CVA tenderness. EXTREMITIES: No leg edema, No joint swelling evy area noted on inner thighs as well. GENITALIA: Penis: lesions evy and irritated painful Urethral meatus: normal size, no discharge Scrotum: lesions, rashes. Testes : Normal Epididymes: Normal Hydroceles: None Spermatoceles: None Varicoceles: None IMPRESSION: (Diagnostic Possibilities): Yeast infection vs cellulitis Diabetic un controlled sugar run 400-500 pt stated that have been out of diabetic medication for 2 months is schedule to hot die picker today and start Obesity PLAN: (Management Options): Cont diflucan X 2 wks [facility] Keflex BID X 10 days script given Wash with non hypergenic soap rinse off with water dry then apply nystatin cream Schedule with Urology close to home in 1-2 wk for re evaluation of genital rash/cellulitis vs yeast. And if do not clear with tx will recommend a Derm consult for further evaluation Medical Decision Making: Problems: Moderate: New problem with uncertain prognosis Risk: Moderate: Drug management Medical Decision Making Level: 4 - Moderate Adri Jones APRN.DOCUMENT IMAGING SPECIALIST documented in this encounter [facility] 06-29-2023 History of Present illness Narrative Images from the original note were not included. Subjective HPI Nontoxic-appearing male presents urgent care chief complaint rash. Duration of symptoms 2 days. Associated symptoms erythematous painful stinging rash to genital area. Has been using some diaper cream to the area and this is helped some. Presents today for evaluation. States area is painful if he pushes on it. It is uncomfortable if he walks. States has noticed some mild discomfort with urinating. Denies any fever body aches chills productive cough chest pain shortness of breath pleuritic pain hemoptysis nausea vomiting abdominal pain change in bowel or bladder habits. Past medical history prescription medication use and allergies reviewed. .Patient presents with: swelling and irritation in genital area: X 2 days PAST MEDICAL HISTORY Diagnosis Date Abdominal pain, generalized 05/2020 Alcohol consumption binge drinking Diverticulitis Hypertension Morbid obesity with BMI of 60.0-69.9, adult (HCC) AIDE (obstructive sleep apnea) PTSD (post-traumatic stress disorder) service Torn meniscus left knee repaired Vitamin D deficiency Vitamin D insufficiency PAST SURGICAL HISTORY Procedure Laterality Date COLONOSCOPY 2011 anal fissure COLONOSCOPY FLX DX W/COLLJ SPEC WHEN PFRMD 06/04/2020 Colonoscopy COLONOSCOPY FLX DX W/COLLJ SPEC WHEN PFRMD 01/31/2019 Colonoscopy ESOPHAGOGASTRODUODENOSCOPY TRANSORAL DIAGNOSTIC 06/04/2020 EGD KNEE SURGERY HX 08/2017 left knee meniscal repair ALLERGIES Patient has no known allergies. MEDICATIONS traZODone (DESYREL) 50 mg tablet Take 50 mg by mouth daily at bedtime. glipiZIDE (GLUCOTROL) 5 mg tablet Take 5 mg by mouth once daily. budesonide, enteric coated (ENTOCORT EC) 3 mg 24 hr capsule Take 3 mg by mouth three times daily. albuterol HFA (VENTOLIN HFA) 90 mcg/actuation inhaler Inhale 2 Puffs as instructed every 4 hours as needed. sertraline (ZOLOFT) 100 mg tablet Take 1 tablet by mouth once daily. (Patient taking differently: Take 100 mg by mouth once daily. 150 mg) hydroCHLOROthiazide (HYDRODIURIL, ESIDRIX) 25 mg tablet Take 1 tablet by mouth once daily. lisinopril (ZESTRIL, PRINIVIL) 40 mg tablet Take 1 tablet by mouth once daily. CPAP Initiate Auto PAP @ 11-20 cm of water with humidification. Mask (per patient preference) optional chin strap (if indicated) , filters, tubing, humidifier and lifetime supplies. FAMILY HISTORY Problem Relation Age of Onset Diabetes Mother Hypertension Mother Heart Mother Anxiety disorder Mother Depression Mother Heart Failure Father Diabetes Father Stroke Father Hypertension Father Bipolar disorder Brother Diabetes Maternal Grandmother Cancer Paternal Grandfather throat Alcohol/Drug Brother alcohol No Known Problems Son Social History Tobacco Use Smoking status: Former Packs/day: 1.50 Years: 15.00 Additional pack years: 0.00 Total pack years: 22.50 Types: Cigarettes Quit date: 07/13/2011 Years since quittin.9 Smokeless tobacco: Never Vaping Use Vaping Use: Never used Substance Use Topics Alcohol use: Yes Comment: very rare 1-4 drinks/year special occassions Drug use: No BP 132/86 Pulse 94 Temp 36.6 C (97.9 F) (Tympanic) Resp 18 Wt (!) 230.7 kg (508 lb 9.6 oz) SpO2 95% BMI 68.98 kg/m Review of Systems Constitutional: Negative for chills, fever and malaise/fatigue. HENT: Negative for congestion, ear discharge, ear pain, sinus pain and sore throat. Eyes: Negative for blurred vision, pain, discharge and redness. Respiratory: Negative for cough, hemoptysis, sputum production, shortness of breath, wheezing and stridor. Cardiovascular: Negative for chest pain. Gastrointestinal: Negative for abdominal pain, diarrhea, nausea and vomiting. Genitourinary: Positive for dysuria. Negative for flank pain, frequency, hematuria and urgency. Musculoskeletal: Negative for myalgias. Skin: Positive for itching and rash. Neurological: Negative for dizziness and headaches. Objective Physical Exam Constitutional: General: He is not in acute distress. Appearance: He is obese. He is not toxic-appearing. HENT: Head: Normocephalic. Nose: Nose normal. Eyes: Pupils: Pupils are equal, round, and reactive to light. Cardiovascular: Rate and Rhythm: Normal rate. Pulmonary: Effort: Pulmonary effort is normal. No respiratory distress. Genitourinary: Pubic Area: Rash present. Penis: Circumcised. Comments: Beefy red erythematous rash noted to highlighted area. Some satellite lesions noted. No adenopathy could be appreciated. Musculoskeletal: Cervical back: Normal range of motion. Skin: General: Skin is warm and dry. Neurological: General: No focal deficit present. Mental Status: He is alert. ASSESSMENT/PLAN: 1. Rash - ICD9: 782.1, ICD10: R21 - GLUCOSE, BLOOD (POC) Vabzn-ft-teuc blood glucose 481. Patient states he is a diabetic and has been out of his medications for 2 months. Suspicious rash is fungal in nature. Will use nystatin cream. Placed on Diflucan as well. No evidence of bacterial infection noted on today's exam. With the severity of patient's symptoms I recommended patient follow-up with urology next couple days for repeat evaluation. Patient was educated on supportive therapies. Patient will follow up with primary care provider as soon as possible for medication refill and lab testing. Patient was instructed to immediately proceed to emergency room for any new, worsening, or symptoms lasting longer than anticipated. The patient's clinical presentation is otherwise unremarkable at this time. Based on exam and clinical finding, the patient is stable for discharge. Plan of care was discussed with patient. Patient verbalizes understanding and agrees to plan of care. This note was generated using [employer] software. It may contain errors in wording, punctuation, or spelling. Pietro Kelly APRN.CNP documented in this encounter [facility] 05-20-2023 History of Present illness Narrative Radiology Service Progress Note PATIENT NAME: Neil Garces DATE OF SERVICE: May 20, 2023 TIME: 9:36 AM PATIENT IDENTITY VERIFICATION COMPLETED USING TWO (2) IDENTIFIERS: Name and Date of confirmed by patient verbally. FALL SCREENING: Has the patient had 2 falls in the last year or 1 fall with injury or currently using an Ambulatory Assistive Device (Walker, Cane, Wheelchair, Crutches, etc.)? No PATIENT GENDER DATA: Male PATIENT RELEVANT IMPLANT DATA REVIEWED: Not Applicable RADIOLOGY DEPARTMENT: General X-ray: Exam(s) Completed: Chest X-Ray PERIPHERAL IV DATA: Not applicable SIGNED BY: RT José(R) May 20, 2023 9:36 AM documented in this encounter [facility] 05-20-2023 History of Present illness Narrative Patient presents with: Cough: Congestion, thick mucous x 2 weeks HPI: Coughing for 2 weeks. Positive symptoms: productive Cough, gagging on phlegm, Nasal Congestion, clear Rhinorrhea, Shortness of breath, Wheezing, fatigue, throat irritation from cough Negative symptoms: Fever, Chills, malaise OTC: tried inhaler. No COVID testing. PAST MEDICAL HISTORY Diagnosis Date Abdominal pain, generalized 05/2020 Alcohol consumption binge drinking Diverticulitis Hypertension Morbid obesity with BMI of 60.0-69.9, adult (HCC) AIDE (obstructive sleep apnea) PTSD (post-traumatic stress disorder) service Torn meniscus left knee repaired Vitamin D deficiency Vitamin D insufficiency MEDICATIONS: Current Outpatient Medications Medication Sig traZODone (DESYREL) 50 mg tablet Take 50 mg by mouth daily at bedtime. glipiZIDE (GLUCOTROL) 5 mg tablet Take 5 mg by mouth once daily. budesonide, enteric coated (ENTOCORT EC) 3 mg 24 hr capsule Take 3 mg by mouth three times daily. sertraline (ZOLOFT) 100 mg tablet Take 1 tablet by mouth once daily. (Patient taking differently: Take 100 mg by mouth once daily. 150 mg) hydroCHLOROthiazide (HYDRODIURIL, ESIDRIX) 25 mg tablet Take 1 tablet by mouth once daily. lisinopril (ZESTRIL, PRINIVIL) 40 mg tablet Take 1 tablet by mouth once daily. albuterol HFA (VENTOLIN HFA) 90 mcg/actuation inhaler Inhale 2 Puffs as instructed every 4 hours as needed. cholecalciferol, Vitamin D3, (VITAMIN D3) 1,250 mcg (50,000 unit) cap capsule Take 1 capsule by mouth one time a week. CPAP Initiate Auto PAP @ 11-20 cm of water with humidification. Mask (per patient preference) optional chin strap (if indicated) , filters, tubing, humidifier and lifetime supplies. cholecalciferol (VITAMIN D-3) 2,000 unit tablet Take 2,000 Units by mouth once daily. (Patient not taking: Reported on 05/20/2023) multivitamin tablet Take 1 tablet by mouth once daily. (Patient not taking: Reported on 05/20/2023) No current facility-administered medications for this visit. ALLERGIES: ALLERGIES No Known Allergies VITALS: BP 160/100 Pulse 81 Temp 36.1 C (96.9 F) Resp 26 Wt (!) 235.1 kg (518 lb 6.4 oz) SpO2 94% BMI 70.31 kg/m PHYSICAL EXAM: GEN: Pleasant, in no acute distress. HEENT: PERRL, EOMI, conjunctiva clear Ears: canals clear. TMs without erythema, bulge, or effusion Sinuses: non-tender frontal sinus, non-tender maxillary sinuses Throat: moist mucous membranes, mild erythema, no exudate Neck: supple, no thyromegaly, no lymphadenopathy HEART: regular rate and rhythm, no murmurs LUNGS: Expiratory wheezes during coughing, no crackles, no increased WOB Component Latest Ref Rng & Units 06/29/2022 Hemoglobin A1C 4.3 - 5.6 % 7.7 (H) ASSESSMENT/PLAN: 1. Subacute cough - ICD9: 786.2, ICD10: R05.2 (primary diagnosis) 2. Wheezing - ICD9: 786.07, ICD10: R06.2 - CXR: no acute findings. Refill - ALBUTEROL SULFATE HFA 90 MCG/ACTUATION AEROSOL INHALER. His current inhaler was prescribed after hospitalization for shortness of breath last March. - PREDNISONE 20 MG TABLET 3 days low dose burst to minimize adverse effect on glucose and weight. Alejandro Wooten MD documented in this encounter [facility] 06-15-2022 History of Present illness Narrative Chief Complaint Patient presents with: Conjunctivitis In lieu of an in person visit due to coronavirus 19 pandemic concerns, a virtual visit was performed with patient. Patient is aware that I am not fully able to assess symptoms and do a full physical exam including vital signs at this time. Patient consents to the visit HPI Neil Garces is a 36 year old male who presents here today for Above Complaints.. Patient states that his son was diagnosed with pink eye this morning after developing symptoms 2 days ago. Patient c/o of redness, itching, clear drainage which started this morning. Woke up with crusting in the corner of his eyes. Denies fever/chills, pain with eye movement, swelling/redness around his eyes, vision changes. Past medical history, appointments, medications, allergies reviewed. Previous Medical History PAST MEDICAL HISTORY Diagnosis Date Abdominal pain, generalized 05/2020 Alcohol consumption binge drinking Diverticulitis Hypertension Morbid obesity with BMI of 60.0-69.9, adult (HCC) AIDE (obstructive sleep apnea) PTSD (post-traumatic stress disorder) service Torn meniscus left knee repaired Vitamin D deficiency Vitamin D insufficiency Previous Surgical History PAST SURGICAL HISTORY Procedure Laterality Date COLONOSCOPY 2012 anal fissure COLONOSCOPY FLX DX W/COLLJ SPEC WHEN PFRMD 06/04/2020 Colonoscopy COLONOSCOPY FLX DX W/COLLJ SPEC WHEN PFRMD 01/31/2019 Colonoscopy ESOPHAGOGASTRODUODENOSCOPY TRANSORAL DIAGNOSTIC 06/04/2020 EGD KNEE SURGERY HX 08/2017 left knee meniscal repair Family History FAMILY HISTORY Problem Relation Age of Onset Diabetes Mother Hypertension Mother Heart Mother Anxiety disorder Mother Depression Mother Heart Failure Father Diabetes Father Stroke Father Hypertension Father Bipolar disorder Brother Diabetes Maternal Grandmother Cancer Paternal Grandfather throat Alcohol/Drug Brother alcohol No Known Problems Son Patient Allergies ALLERGIES No Known Allergies Current Medications Current Outpatient Medications on File Prior to Visit Medication Sig hydroCHLOROthiazide (HYDRODIURIL, ESIDRIX) 25 mg tablet Take 1 tablet by mouth once daily. lisinopril (ZESTRIL, PRINIVIL) 40 mg tablet Take 1 tablet by mouth once daily. albuterol HFA (VENTOLIN HFA) 90 mcg/actuation inhaler Inhale 2 Puffs as instructed every 4 hours as needed. sertraline (ZOLOFT) 100 mg tablet Take 1 tablet by mouth once daily. cholecalciferol, Vitamin D3, (VITAMIN D3) 1,250 mcg (50,000 unit) cap capsule Take 1 capsule by mouth one time a week. CPAP Initiate Auto PAP @ 11-20 cm of water with humidification. Mask (per patient preference) optional chin strap (if indicated) , filters, tubing, humidifier and lifetime supplies. cholecalciferol (VITAMIN D-3) 2,000 unit tablet Take 2,000 Units by mouth once daily. multivitamin tablet Take 1 tablet by mouth once daily. No current facility-administered medications on file prior to visit. Social History Social History Tobacco Use Smoking status: Former Packs/day: 1.50 Years: 15.00 Pack years: 22.50 Types: Cigarettes Quit date: 07/13/2011 Years since quittin.9 Smokeless tobacco: Never Vaping Use Vaping Use: Never used Substance Use Topics Alcohol use: Yes Comment: very rare 1-4 drinks/year special occassions Drug use: No Review of Symptoms REVIEW OF SYSTEMS See HPI EXAM: There were no vitals taken for this visit. General Appearance: Well appearing, alert, in no acute distress, well-hydrated, well nourished.. Skin: Skin color, texture, turgor normal, no suspicious rashes or lesions. Eyes: mildly injected sclera bilaterally without drainage, periorbital swelling/erythema. No pain with eye movement Health Maintenance List HEPATITIS B(1 of 3 - 3-dose series) Never done COVID-19 VACCINE(1) Never done BP CONTROLLED (<130/80) Never done DEPRESSION ASSESSMENT Never done INFLUENZA(1) due on 05/07/2022 ANNUAL PCP TEAM CHRONIC DISEASE VISIT due on 03/31/2023 LIPID SCREEN due on 04/09/2026 DTAP,TDAP,TD(2 - Td or Tdap) due on 05/10/2027 HEPATITIS C SCREENING Completed HIV SCREENING Completed ASSESSMENT/PLAN: 1. Acute conjunctivitis of both eyes, unspecified acute conjunctivitis type - ICD9: 372.00, ICD10: H10.33 - see medication orders - course and contagiousness issues discussed, including hand washing. - Instructed to call if high fever, development of periorbital redness or swelling, eye pain, visual changes, concerns or if symptoms persist. - POLYMYXIN B SULFATE 10,000 UNIT-TRIMETHOPRIM 1 MG/ML EYE DROPS I spent a total of 12 minutes on the date of the service which included preparing to see the patient, [id number] patient care, completing clinical documentation, obtaining and/or reviewing separately obtained history, performing a medically appropriate examination, counseling and educating the patient/family/caregiver, and ordering medications, tests, or procedures. Eran Canchola MD documented in this encounter [facility] 03-31-2022 History of Present illness Narrative Chief Complaint Patient presents with: Hospital Follow Up: C/O continued SOB and fatigue Recheck: follow up lab vit d HPI Neil Garces is a 36 year old male who presents here today for Above Complaints.. Patient evaluated at [facility] on on 03/23 after VV with Carmen Podlogar for complaint of recent COVID infection with persistent fatigue, SOB, chills, hot flashes, and diarrhea. Workup in the ED with negative/normal EKG. WBC elevated at 14.6 with high neutrophils and lymphocytes. D dimer mildly elevated at 275. Glucose 291 with normal anion gap and potassium level. CXR normal. Unable to fit into CT scanner there and [facility] would not take him as transfer since his D dimer was not elevated high enough to be considered for PE. Treated with IV fluids and abcx and was admitted to regular nursing floor until 03/25 for observation. While inpatient, they obtain doppler US which was negative for DVT. Echo showed normal EF and right ventricular systolic function. Retest for COVID was negative. Diarrhea resolved prior to discharge. Discharged home with recommendation to follow up with our office. Since discharge, patient states that he continues to have SOB which is gradually improving. Was able to return to work yesterday and was more SOB than he is today. Is coughing with rare productive sputum. Using albuterol inhaler about 2-3 times per day which is helping with his cough. Taking metamucil fiber and eating more yogurt which has kept his diarrhea at bay. Chills and hot flashes have resolved. Feels like fatigue has been worse since he has had to return to work. Patient has not been vaccinated for COVID. Was treated with Paxlovid for this infection. Past medical history, appointments, medications, allergies reviewed. Previous Medical History PAST MEDICAL HISTORY Diagnosis Date Abdominal pain, generalized 05/2020 Alcohol consumption binge drinking Diverticulitis Hypertension Morbid obesity with BMI of 60.0-69.9, adult (HCC) AIDE (obstructive sleep apnea) PTSD (post-traumatic stress disorder) service Torn meniscus left knee repaired Vitamin D deficiency Vitamin D insufficiency Previous Surgical History PAST SURGICAL HISTORY Procedure Laterality Date COLONOSCOPY 2011 anal fissure COLONOSCOPY FLX DX W/COLLJ SPEC WHEN PFRMD 06/04/2020 Colonoscopy COLONOSCOPY FLX DX W/COLLJ SPEC WHEN PFRMD 01/31/2019 Colonoscopy ESOPHAGOGASTRODUODENOSCOPY TRANSORAL DIAGNOSTIC 06/04/2020 EGD KNEE SURGERY HX 08/2017 left knee meniscal repair Family History FAMILY HISTORY Problem Relation Age of Onset Diabetes Mother Hypertension Mother Heart Mother Anxiety disorder Mother Depression Mother Heart Failure Father Diabetes Father Stroke Father Hypertension Father Bipolar disorder Brother Diabetes Maternal Grandmother Cancer Paternal Grandfather throat Alcohol/Drug Brother alcohol No Known Problems Son Patient Allergies ALLERGIES No Known Allergies Current Medications Current Outpatient Medications on File Prior to Visit Medication Sig hydroCHLOROthiazide (HYDRODIURIL, ESIDRIX) 25 mg tablet Take 1 tablet by mouth once daily. lisinopril (ZESTRIL, PRINIVIL) 40 mg tablet Take 1 tablet by mouth once daily. multivitamin tablet Take 1 tablet by mouth once daily. sertraline (ZOLOFT) 100 mg tablet Take 1 tablet by mouth once daily. cholecalciferol, Vitamin D3, (VITAMIN D3) 1,250 mcg (50,000 unit) cap capsule Take 1 capsule by mouth one time a week. CPAP Initiate Auto PAP @ 11-20 cm of water with humidification. Mask (per patient preference) optional chin strap (if indicated) , filters, tubing, humidifier and lifetime supplies. cholecalciferol (VITAMIN D-3) 2,000 unit tablet Take 2,000 Units by mouth once daily. No current facility-administered medications on file prior to visit. Social History Social History Tobacco Use Smoking status: Former Smoker Packs/day: 1.50 Years: 15.00 Pack years: 22.50 Types: Cigarettes Quit date: 07/13/2011 Years since quittin.7 Smokeless tobacco: Never Used Vaping Use Vaping Use: Never used Substance Use Topics Alcohol use: Yes Comment: very rare 1-4 drinks/year special occassions Drug use: No Review of Symptoms REVIEW OF SYSTEMS See HPI EXAM: BP 138/76 Pulse 85 Resp 20 Wt (!) 244.5 kg (539 lb) SpO2 96% BMI 73.10 kg/m General Appearance: Well appearing, alert, in no acute distress, well-hydrated, well nourished.. Skin: Skin color, texture, turgor normal, no suspicious rashes or lesions. Lungs: Lungs clear to auscultation. No wheezing, rhonchi, rales.. Heart: RRR without murmur, gallop, or rubs. No ectopy. Abdomen: Normal abdominal exam, Abdomen soft, non-tender. Bowel sounds normal. No masses, organomegaly. Extremities: No deformities, edema, skin discoloration, clubbing or cyanosis. Good capillary refill. . Health Maintenance List COVID-19 VACCINE(1) Never done BP CONTROLLED (<130/80) Never done INFLUENZA(1) due on 05/07/2022 DEPRESSION SCREENING due on 11/25/2022 ANNUAL PCP TEAM CHRONIC DISEASE VISIT due on 03/23/2023 LIPID SCREEN due on 04/09/2026 DTAP,TDAP,TD(2 - Td or Tdap) due on 05/10/2027 HEPATITIS C SCREENING Completed HIV SCREENING Completed ASSESSMENT/PLAN: 1. History of COVID-19 - ICD9: V12.09, ICD10: Z86.16 (primary diagnosis) S/p treatment with Paxlovid. Symptoms are gradually improving. Continue with current regimen and call with worsening symptoms. Discussed importance of vaccination to prevent severe illness. Will have him get vaccinated after symptoms resolve. 2. Fatigue, unspecified type - ICD9: 780.79, ICD10: R53.83 See above. 3. Diarrhea, unspecified type - ICD9: 787.91, ICD10: R19.7 Improved. 4. SOB (shortness of breath) - ICD9: 786.05, ICD10: R06.02 Improving. 5. Hypertension, unspecified type - ICD9: 401.9, ICD10: I10 - good control - Continue current medication(s) - Encouraged dietary sodium restriction/DASH diet - Recommended regular aerobic exercise. - Reviewed risks of HTN and principles of treatment - Goal of BP <140/90 - HYDROCHLOROTHIAZIDE 25 MG TABLET - LISINOPRIL 40 MG TABLET 6. Morbid obesity with body mass index of 70 and over in adult (HCC) - ICD9: 278.01, V85.45, ICD10: E66.01, Z68.45 Weight increasing - Behavioral intervention Eran Canchola MD documented in this encounter [facility] 03-23-2022 History of Present illness Narrative 03/23/2022 Patient presents with: Covid19 Concern Video visit SUBJECTIVE: This is a 36 year old that is here today for Above Complaints. Started with COVID-19 symptoms on 03/14/2022. Went to ER on 03/15/2022 and was diagnosed. Given prescriptions for paxlovid, Zithromax and steroid which he reports he has completed. Tolerated medications without side effects. He also reports was given an albuterol inhaler which helps with SOB with exertion. Is supposed to return to work today but still not feeling up to it. Reports still with symptoms of sweats, fatigue, SOB with exertion, cough, sore throat and mild diarrhea. Denies known fevers, dyspnea, chest pain, nasal congestion, rhinorrhea, nausea or vomiting. Is using CPAP at night No ER records for review. PAST MEDICAL HISTORY Diagnosis Date Abdominal pain, generalized 05/2020 Alcohol consumption binge drinking Diverticulitis Hypertension Morbid obesity with BMI of 60.0-69.9, adult (HCC) AIDE (obstructive sleep apnea) PTSD (post-traumatic stress disorder) service Torn meniscus left knee repaired Vitamin D deficiency Vitamin D insufficiency ALLERGIES Patient has no known allergies. MEDICATIONS Current Outpatient Medications Medication Sig sertraline (ZOLOFT) 100 mg tablet Take 1 tablet by mouth once daily. hydroCHLOROthiazide (HYDRODIURIL, ESIDRIX) 25 mg tablet Take 1 tablet by mouth once daily. lisinopril (ZESTRIL, PRINIVIL) 40 mg tablet Take 1 tablet by mouth once daily. cholecalciferol, Vitamin D3, (VITAMIN D3) 1,250 mcg (50,000 unit) cap capsule Take 1 capsule by mouth one time a week. CPAP Initiate Auto PAP @ 11-20 cm of water with humidification. Mask (per patient preference) optional chin strap (if indicated) , filters, tubing, humidifier and lifetime supplies. cholecalciferol (VITAMIN D-3) 2,000 unit tablet Take 2,000 Units by mouth once daily. multivitamin tablet Take 1 tablet by mouth once daily. No current facility-administered medications for this visit. Medications and allergies reviewed by this provider. SOCIAL HISTORY Social History Tobacco Use Smoking status: Former Smoker Packs/day: 1.50 Years: 15.00 Pack years: 22.50 Types: Cigarettes Quit date: 07/13/2011 Years since quittin.7 Smokeless tobacco: Never Used Vaping Use Vaping Use: Never used Substance Use Topics Alcohol use: Yes Comment: very rare 1-4 drinks/year special occassions Drug use: No REVIEW OF SYSTEMS All other reviewed and negative other than HPI. OBJECTIVE: There were no vitals taken for this visit.. Vital signs reviewed by this provider. APPEARANCE Well appearing, alert, in no acute distress, well-hydrated, well nourished. and Morbidly obese LUNG No audile wheezing or coughing. Able to speak in full sentences without difficulty. COVID-19 VACCINE(1) Never done BP CONTROLLED (<130/80) Never done INFLUENZA(1) due on 05/07/2022 DEPRESSION SCREENING due on 11/25/2022 ANNUAL PCP TEAM CHRONIC DISEASE VISIT due on 03/23/2023 LIPID SCREEN due on 04/09/2026 DTAP,TDAP,TD(2 - Td or Tdap) due on 05/10/2027 HEPATITIS C SCREENING Completed HIV SCREENING Completed ASSESSMENT/PLAN: 1. Telehealth encounter for confirmed COVID-19 - ICD9: 079.89, ICD10: U07.1 - no red flag symptoms - red flag symptoms reviewed - letter provided through Wednesday, if still feeling ill would recommend office appointment to evaluate. - patient is high risk for developing complications due to morbid obesity, HTN, and AIDE Carmen Jacob APRN.DOCUMENT IMAGING SPECIALIST Prescription instructions reviewed with patient as applicable. Patient advised if symptoms do not improve or if symptoms worsen sooner, to contact their primary care physician. Potential red flag symptoms discussed with the patient. Reviewed appropriate action plan to take if red flag symptoms occur. Patient agreeable to treatment plan. documented in this encounter [facility] 01-19-2022 History of Present illness Narrative Radiology Service Progress Note PATIENT NAME: Neil Garces DATE OF SERVICE: January 19, 2022 TIME: 3:16 PM PATIENT IDENTITY VERIFICATION COMPLETED USING TWO (2) IDENTIFIERS: Name and Date of confirmed by patient verbally. FALL SCREENING: Has the patient had 2 falls in the last year or 1 fall with injury or currently using an Ambulatory Assistive Device (Walker, Cane, Wheelchair, Crutches, etc.)? No PATIENT GENDER DATA: Male PATIENT RELEVANT IMPLANT DATA REVIEWED: Yes RADIOLOGY DEPARTMENT: General X-ray: Exam(s) Completed: Rib X-Ray: Left PERIPHERAL IV DATA: Not applicable SIGNED BY: RT Gorge(R) January 19, 2022 3:16 PM documented in this encounter [facility] 01-19-2022 Miscellaneous Notes Patient phones requesting refills as follows: No medications selected for refill. Please review and advise. Maureen Richard LPN documented in this encounter [facility] 01-19-2022 History of Present illness Narrative Chief Complaint Patient presents with: Musculoskeletal Problem: left side/abd- sneezed last night and it dropped him to the floor HPI Neil Garces is a 36 year old male who presents here today for Above Complaints. Patient states that he was moving furniture all weekend and then yesterday sneezed which caused severe pain in LUQ abdominal/rib pain. Described as constant aching pain 3/10 which becomes sharp 7/10 with movement. Treated with biofreeze last night which did not help with pain. Denies bruising/swelling or erythema in the area. Denies fever/chills, nausea, vomiting, diarrhea, constipation, hematochezia. Past medical history, appointments, medications, allergies reviewed. Previous Medical History PAST MEDICAL HISTORY Diagnosis Date Abdominal pain, generalized 05/2020 Alcohol consumption binge drinking Diverticulitis Hypertension Morbid obesity with BMI of 60.0-69.9, adult (HCC) AIDE (obstructive sleep apnea) PTSD (post-traumatic stress disorder) service Torn meniscus left knee repaired Vitamin D deficiency Vitamin D insufficiency Previous Surgical History PAST SURGICAL HISTORY Procedure Laterality Date COLONOSCOPY 2011 anal fissure COLONOSCOPY FLX DX W/COLLJ SPEC WHEN PFRMD 06/04/2020 Colonoscopy COLONOSCOPY FLX DX W/COLLJ SPEC WHEN PFRMD 01/31/2019 Colonoscopy ESOPHAGOGASTRODUODENOSCOPY TRANSORAL DIAGNOSTIC 06/04/2020 EGD KNEE SURGERY HX 08/2017 left knee meniscal repair Family History FAMILY HISTORY Problem Relation Age of Onset Diabetes Mother Hypertension Mother Heart Mother Anxiety disorder Mother Depression Mother Heart Failure Father Diabetes Father Stroke Father Hypertension Father Bipolar disorder Brother Diabetes Maternal Grandmother Cancer Paternal Grandfather throat Alcohol/Drug Brother alcohol No Known Problems Son Patient Allergies ALLERGIES No Known Allergies Current Medications Current Outpatient Medications on File Prior to Visit Medication Sig sertraline (ZOLOFT) 100 mg tablet Take 1 tablet by mouth once daily. traZODone (DESYREL) 50 mg tablet Take 1 tablet by mouth daily at bedtime. hydroCHLOROthiazide (HYDRODIURIL, ESIDRIX) 25 mg tablet Take 1 tablet by mouth once daily. lisinopril (ZESTRIL, PRINIVIL) 40 mg tablet Take 1 tablet by mouth once daily. cholecalciferol, Vitamin D3, (VITAMIN D3) 1,250 mcg (50,000 unit) cap capsule Take 1 capsule by mouth one time a week. CPAP Initiate Auto PAP @ 11-20 cm of water with humidification. Mask (per patient preference) optional chin strap (if indicated) , filters, tubing, humidifier and lifetime supplies. cholecalciferol (VITAMIN D-3) 2,000 unit tablet Take 2,000 Units by mouth once daily. multivitamin tablet Take 1 tablet by mouth once daily. No current facility-administered medications on file prior to visit. Social History Social History Tobacco Use Smoking status: Former Smoker Packs/day: 1.50 Years: 15.00 Pack years: 22.50 Types: Cigarettes Quit date: 07/13/2011 Years since quittin.5 Smokeless tobacco: Never Used Vaping Use Vaping Use: Never used Substance Use Topics Alcohol use: Yes Comment: very rare 1-4 drinks/year special occassions Drug use: No Review of Symptoms REVIEW OF SYSTEMS See HPI EXAM: BP 150/88 Pulse 75 Resp 18 Wt (!) 240.1 kg (529 lb 6.4 oz) SpO2 96% BMI 71.80 kg/m General Appearance: Well appearing, alert, in no acute distress, well-hydrated, well nourished.. Skin: Skin color, texture, turgor normal, no suspicious rashes or lesions. Lungs: Lungs clear to auscultation. No wheezing, rhonchi, rales.. Heart: RRR without murmur, gallop, or rubs. No ectopy. Abdomen: Soft, ND, +BS. TTP in LUQ and over left lower anterior ribs without bruising, erythema, swelling. No abdominal wall defect/hernia palpable. No change with bearing down. Health Maintenance List COVID-19 VACCINE(1) Never done BP CONTROLLED (<130/80) Never done INFLUENZA(Season Ended) due on 05/07/2022 DEPRESSION SCREENING due on 11/25/2022 ANNUAL PCP TEAM CHRONIC DISEASE VISIT due on 01/14/2023 LIPID SCREEN due on 04/09/2026 DTAP,TDAP,TD(2 - Td or Tdap) due on 05/10/2027 HEPATITIS C SCREENING Completed HIV SCREENING Completed MENINGOCOCCAL CONJUGATE Aged Out ASSESSMENT/PLAN: 1. LUQ abdominal pain - ICD9: 789.02, ICD10: R10.12 (primary diagnosis) Suspect pain is 2/2 muscle strain from violent sneeze. Will treat with NSAIDs and muscle relaxer along with ice/heat and rest. Call if not improving in 2-3 days. 2. Rib pain on left side - ICD9: 786.50, ICD10: R07.81 Obtain xray to rule out fracture vs dislocation. - XR RIBS/CHEST 3V AP RIB/OBLS/CXR LEFT 3. Anxiety with depression - ICD9: 300.4, ICD10: F41.8 Requesting refill - SERTRALINE 100 MG TABLET 4. Chronic insomnia - ICD9: 780.52, ICD10: F51.04 Requesting refill - TRAZODONE 50 MG TABLET Eran Canchola MD documented in this encounter [facility] 01-16-2022 Miscellaneous Notes Patient has been identified by name and date of : Yes Pharmacy phones for refill(s): Pending Prescriptions Disp Refills SERTRALINE 100 MG TABLET 90 tablet Sig: Take 1 tablet by mouth once daily. SHELLIE: No TRAZODONE 50 MG TABLET 90 tablet 3 Sig: Take 1 tablet by mouth daily at bedtime. SHELLIE: No Date of last office visit in primary care: 01/14/22, NOV: 02/26/22 Last 2 Encounter Wt Readings: Date: Wt: 01/14/2022 242.2 kg (534 lb) 11/25/2021 238.7 kg (526 lb 3.2 oz) Please advise. Thank you. Paula Daugherty RN documented in this encounter [facility] 12-04-2021 History of Present illness Narrative Patient presents with: Acute Visit HPI:This Team Access Model visit is a virtual encounter. It required patient-provider interaction for the medical decision making as documented below. Patient was offered a virtual/telemedicine appointment in lieu of an office visit due to recommendations to reduce patient exposure to COVID-19. Patient is aware of limitations of performing the visit without a face to face visit in the office setting and agrees. Started with illness late yesterday. Family is ill also. All gi. No fever. Has cramping and diarrhea. No bloody or black stools. No vomiting. Some mild nausea. No dizziness. No lightheadedness. No rash. No sore throat or cough or congestion. No recent travel or antibiotic use. Drinking well. Needs a work slip. MEDICATIONS: Current Outpatient Medications Medication Sig hydroCHLOROthiazide (HYDRODIURIL, ESIDRIX) 25 mg tablet Take 1 tablet by mouth once daily. lisinopril (ZESTRIL, PRINIVIL) 40 mg tablet Take 1 tablet by mouth once daily. sertraline (ZOLOFT) 100 mg tablet Take 1 tablet by mouth once daily. cholecalciferol, Vitamin D3, (VITAMIN D3) 1,250 mcg (50,000 unit) cap capsule Take 1 capsule by mouth one time a week. traZODone (DESYREL) 50 mg tablet Take 1 tablet by mouth daily at bedtime. CPAP Initiate Auto PAP @ 11-20 cm of water with humidification. Mask (per patient preference) optional chin strap (if indicated) , filters, tubing, humidifier and lifetime supplies. cholecalciferol (VITAMIN D-3) 2,000 unit tablet Take 2,000 Units by mouth once daily. multivitamin tablet Take 1 tablet by mouth once daily. No current facility-administered medications for this visit. ALLERGIES: ALLERGIES No Known Allergies PAST MEDICAL HISTORY Diagnosis Date Abdominal pain, generalized 05/2020 Alcohol consumption binge drinking Diverticulitis Hypertension Morbid obesity with BMI of 60.0-69.9, adult (HCC) AIDE (obstructive sleep apnea) PTSD (post-traumatic stress disorder) service Torn meniscus left knee repaired Vitamin D deficiency Vitamin D insufficiency PAST SURGICAL HISTORY Procedure Laterality Date COLONOSCOPY 2011 anal fissure COLONOSCOPY FLX DX W/COLLJ SPEC WHEN PFRMD 06/04/2020 Colonoscopy COLONOSCOPY FLX DX W/COLLJ SPEC WHEN PFRMD 01/31/2019 Colonoscopy ESOPHAGOGASTRODUODENOSCOPY TRANSORAL DIAGNOSTIC 06/04/2020 EGD KNEE SURGERY HX 08/2017 left knee meniscal repair FAMILY HISTORY Problem Relation Age of Onset Diabetes Mother Hypertension Mother Heart Mother Anxiety disorder Mother Depression Mother Heart Failure Father Diabetes Father Stroke Father Hypertension Father Bipolar disorder Brother Diabetes Maternal Grandmother Cancer Paternal Grandfather throat Alcohol/Drug Brother alcohol No Known Problems Son Social History Tobacco Use Smoking status: Former Smoker Packs/day: 1.50 Years: 15.00 Pack years: 22.50 Types: Cigarettes Quit date: 07/13/2011 Years since quittin.4 Smokeless tobacco: Never Used Vaping Use Vaping Use: Never used Substance Use Topics Alcohol use: Yes Comment: very rare 1-4 drinks/year special occassions Drug use: No Reviewed current medications, allergies, past medical history, surgical history, family history and social history today. REVIEW OF SYSTEMS All other reviewed and negative other than HPI. VITALS: There were no vitals taken for this visit. Last 4 Encounter Wt Readings: Date: Wt: 11/25/2021 238.7 kg (526 lb 3.2 oz) 10/22/2021 244.5 kg (539 lb) 09/24/2021 244 kg (538 lb) 04/14/2021 240.9 kg (531 lb) PHYSICAL EXAMINATION: Patient is alert and oriented during visit. Answers appropriately. Non toxic. ASSESSMENT/PLAN: 1. Gastroenteritis - ICD9: 558.9, ICD10: K52.9 - push fluids - Red flags for re-assessment reviewed with patient in detail. - given work slip Aniket Lobato documented in this encounter [facility] 04-09-2021 History of Present illness Narrative Radiology Service Progress Note PATIENT NAME: Neil Garces DATE OF SERVICE: April 09, 2021 TIME: 3:23 PM PATIENT IDENTITY VERIFICATION COMPLETED USING TWO (2) IDENTIFIERS: Name and Date of confirmed by patient verbally. FALL SCREENING: Has the patient had 2 falls in the last year or 1 fall with injury or currently using an Ambulatory Assistive Device (Walker, Cane, Wheelchair, Crutches, etc.)? No PATIENT GENDER DATA: Male PATIENT RELEVANT IMPLANT DATA REVIEWED: Yes RADIOLOGY DEPARTMENT: General X-ray: Exam(s) Completed: Spine X-Ray(s): Lumbar AP / LAT / L5-S1 Pelvis X-Ray: Pelvis with Hip Left PERIPHERAL IV DATA: Not applicable SIGNED BY: RT Gorge(R) April 09, 2021 3:23 PM documented in this encounter [facility] Evaluation note Diagnosis Gastroenteritis- Primary Other and unspecified noninfectious gastroenteritis and colitis documented in this encounter [facility] note* Diagnosis Anxiety with depression Chronic insomnia Insomnia, unspecified documented in this encounter [facility] note* Diagnosis LUQ abdominal pain- Primary Abdominal pain, left upper quadrant Rib pain on left side Chest pain, unspecified Anxiety with depression Chronic insomnia Insomnia, unspecified documented in this encounter [facility] note* Diagnosis Anxiety with depression documented in this encounter [facility]* Diagnosis Telehealth encounter for confirmed COVID-19- Primary documented in this encounter [facility] note* Diagnosis History of COVID-19- Primary Fatigue, unspecified type Diarrhea, unspecified type SOB (shortness of breath) Shortness of breath Hypertension, unspecified type Morbid obesity with body mass index of 70 and over in adult (HCC) Morbid obesity documented in this encounter [facility] note* Diagnosis Acute conjunctivitis of both eyes, unspecified acute conjunctivitis type- Primary documented in this encounter [facility]* Diagnosis Unilateral primary osteoarthritis, left hip documented in this encounter [facility]No assessment [facility] Work Phone: evaluation note* Diagnosis Onset Date Resolution Status Hepatomegaly chronic Loose stools [facility] Work Phone: evaluation note* Diagnosis Subacute cough- Primary Cough Wheezing documented [facility] this encounter [facility]* Diagnosis Rash- Primary Rash and other nonspecific skin eruption documented in this encounter [facility] note* Diagnosis Rash of genital area- Primary Yeast infection Candidiasis of unspecified site Cellulitis, unspecified cellulitis site documented in this encounter [facility] note* Diagnosis Tinea cruris- Primary Dermatophytosis of groin and perianal area Paraphimosis Redundant prepuce and phimosis Screening for genitourinary condition Screening for other and unspecified genitourinary condition Morbid obesity with BMI of 60.0-69.9, adult (HCC) Morbid obesity Acquired buried penis Other specified disorder of penis [facility] this encounter [facility]* Diagnosis Sore throat- Primary Acute pharyngitis Acute cough SOB (shortness of breath) Shortness of breath Wheezing documented in this encounter [facility] note* Diagnosis Acute cough SOB (shortness of breath) Shortness of breath documented in this encounter [facility] note* Diagnosis Subacute cough Cough documented in this encounter [facility] note* Diagnosis Rib pain on left side Chest pain, unspecified documented in this encounter [facility] note* Diagnosis Left hip pain Pain in joint, pelvic region and thigh documented in this encounter [facility] note* Diagnosis Procedure not carried out- Primary Procedure not carried out for other reasons documented in this encounter [facility] note* Diagnosis Contusion of left forearm, initial encounter- Primary Wound cellulitis Cellulitis and abscess of unspecified site Contusion of left forearm, initial encounter documented in this encounter [facility] note* Diagnosis Contusion of left forearm, initial encounter documented in this encounter [facility] for referral (narrative)* Diagnostic Procedure Only (Routine) - Closed Specialty Diagnoses / Procedures Referred By Contac t Referred To Contact XR IMAGING Diagnoses Rib pain on left side Procedures XR RIBS/CHEST 3V AP RIB/OBLS/CXR LEFT RADEX RIBS UNI W/POSTEROANT CH MINIMUM 3 VIEWS Eran Canchola MD [address] [place] [address] Xr Imaging Referral ID Status Reason Start Date Expiration Date V isits Requested Visits Authorized [id number] Closed Auto-Generate d Referral 01/19/2022 02/18/2023 1 1 [facility] for referral (narrative)* Diagnostic Procedure Only (Routine) - Closed Specialty Diagnoses / Procedures Referred By Contac t Referred To Contact XR IMAGING Diagnoses Rib pain on left side Procedures XR RIBS/CHEST 3V AP RIB/OBLS/CXR LEFT RADEX RIBS UNI W/POSTEROANT CH MINIMUM 3 VIEWS Eran Canchola MD [address] [place] [address] Xr Imaging [facility] Referral ID Status Reason Start Date Expiration Date V isits Requested Visits Authorized [id number] Closed Auto-Generate d Referral 01/19/2022 02/18/2023 1 1 [facility] for referral (narrative)* Diagnostic Procedure Only (Routine) - Closed Specialty Diagnoses / Procedures Referred By Contac t Referred To Contact XR IMAGING Diagnoses Left hip pain Procedures XR LUMBAR GENERAL 3V AP/LAT/L5-S1 X-RAY L-S SPINE AP/LATERAL PodlogarCarmen APRN.DOCUMENT IMAGING SPECIALIST [address] [place] [address] [place] [address] Referral ID Status Reason Start Date Expiration Date V isits Requested Visits Authorized [id number] Closed Auto-Generate d Referral 04/09/2021 05/09/2022 1 1 * Diagnostic Procedure Only (Routine) - Closed Specialty Diagnoses / Procedures Referred By Contac t Referred To Contact XR IMAGING Diagnoses Left hip pain Procedures XR HIP GENERAL 3V PELV/AP/LAT LT RADEX HIP UNILATERAL WITH PELVIS 2-3 VIEWS Podlogar, NICKI Morales.DOCUMENT IMAGING SPECIALIST [address] [place] [address] [place] [address] Referral ID Status Reason Start Date Expiration Date V isits Requested Visits Authorized [id number] Closed Auto-Generate d Referral 04/09/2021 05/09/2022 1 1 [facility] for visit Narrative* Auth/Cert Specialty Diagnoses / Procedures Referred By Contac t Referred To Contact Diagnoses Unilateral primary osteoarthritis, left hip M16.12 Procedures [place] ARTHROPLASTY ACETABULAR AND PROXIMAL FEMORAL PROSTHETIC REPLACEMENT Left total hip arthroplasty Ludmila Fernandez MD [address] [place] [address] Pankaj Reyes Or [address] [place] [address] Referral ID Status Reason Start Date Expiration Date Visits Re quested Visits Authorized [id number] 1 1 [facility] for visit Narrative* Diagnostic Procedure Only (Routine) - Closed Specialty Diagnoses / Procedures Referred By Contac t Referred To Contact XR IMAGING Diagnoses Rib pain on left side Procedures XR RIBS/CHEST 3V AP RIB/OBLS/CXR LEFT RADEX RIBS UNI W/POSTEROANT CH MINIMUM 3 VIEWS Eran Canchola MD [address] [place] [address] [place] [address] Referral ID Status Reason Start Date Expiration Date V isits Requested Visits Authorized [id number] Closed Auto-Generate d Referral 01/19/2022 02/18/2023 1 1 [facility] for visit Narrative* Diagnostic Procedure Only (Routine) - Closed Specialty Diagnoses / Procedures Referred By Contac t Referred To Contact XR IMAGING Diagnoses Left hip pain Procedures XR LUMBAR GENERAL 3V AP/LAT/L5-S1 X-RAY L-S SPINE AP/LATERAL Podlogar, BRAYDEN Morales [address] [place] [id number] [place] [address] Referral ID Status Reason Start Date Expiration Date V isits Requested Visits Authorized [id number] Closed Auto-Generate d Referral 04/09/2021 05/09/2022 1 1 [facility] for visit Narrative* Diagnostic Procedure Only (Urgent) - Closed Specialty Diagnoses / Procedures Referred By Contac t Referred To Contact XR IMAGING Diagnoses Contusion of left forearm, initial encounter Procedures XR FOREARM GENERAL 2V AP/LAT LEFT RADEX FOREARM 2 VIEWS Fanny Wiggins PA-C [address] [facility] [address] [place] [address] Phone: tel: fax: [place] [address] Referral ID Status Reason Start Date Expiration Date V isits Requested Visits Authorized [id number] Closed Auto-Generate d Referral 01/17/2025 02/16/2026 1 1 [facility] Summary Purpose Family History No Family History Records Found Relationship Condition Age at Onset Recorded Date/T joel grandfather Malignant neoplasm of throat Unknown Advance Directives No Advanced Directives Records FoundDocuments on File Type Date Recorded 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 Advance Directive(s) 01/31/2019 6:42 AM Documents on File Type Date Recorded 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 Advance Directive(s) 01/31/2019 6:42 AM Advance Directive Response Recorded Date/ Time Living Will No November 10, 2021 12:11pm Power of Grocery Carrier No November 10 12:11pm Advance Directive Response Recorded Date/ Time Living Will No November 10, 2021 1:11pm Power of Grocery Carrier No November 10 1:11pm Chief Complaint and Reason for Visit Chief Complaint MORBID OBESITY THR DR/FAX MORBID OBESITY THR DR/FAX Chief Complaint MORBID OBESITY THR DR/FAX MORBID OBESITY APPLICATION RELEASE MANAGER NEED ORDER LABSPEC THR DR/FAX Reason for Visit Hepatomegaly Loose stools Chief Complaint MORBID OBESITY THR DR/FAX MORBID OBESITY APPLICATION RELEASE MANAGER NEED ORDER LABSPEC THR DR/FAX HEPATOMEGALY Reason for Visit Hepatomegaly Loose stools Chief Complaint MORBID OBESITY APPLICATION RELEASE MANAGER NEED ORDER LABSPEC THR DR/FAX HEPATOMEGALY MORBID OBESITY Reason for Visit Hepatomegaly Loose stools Additional Source Comments (unrecognized sect ion and content) No Status Records FoundNo Status Records FoundNo Status Records FoundNo Status Records FoundNo Status Records FoundNo Status Records Found INFORMATION SOURCE (unrecogn ized section and content) DATE CREATED AUTHOR 03/01/2018 [facility] DATE CREATED AUTHOR AUTHOR'S ORGANIZ ATION 05/15/2020 [facility] DATE CREATED AUTHOR AUTHOR'S ORGANIZ ATION 08/26/2022 [facility] DATE CREATED AUTHOR AUTHOR'S ORGANIZ ATION [facility]/20[facility] DATE CREATED AUTHOR AUTHOR'S ORGANIZ ATION 04/28/2024 [facility] DATE CREATED AUTHOR AUTHOR'S ORGANIZ ATION 01/18/2025 [facility] Source Comments (unrecognize d section and content) In the event this informatio n is protected by the Federal Confidentiality of Alcohol and Drug Abuse Patient Records regulations: The Federal rules restrict any use of the information to criminally investigate or prosecute any alcohol or drug abuse patient.[facility] the event this information is protected by the Federal Confidentiality of Alcohol and Drug Abuse Patient Records regulations: The Federal rules restrict any use of the information to criminally investigate or prosecute any alcohol or drug abuse patient.[facility] the event this information is protected by the Federal Confidentiality of Alcohol and Drug Abuse Patient Records regulations: The Federal rules restrict any use of the information to criminally investigate or prosecute any alcohol or drug abuse patient.[facility] Hospital[facility] the event this information is protected by the Federal Confidentiality of Alcohol and Drug Abuse Patient Records regulations: The Federal rules restrict any use of the information to criminally investigate or prosecute any alcohol or drug abuse patient.[facility] the event this information is protected by the Federal Confidentiality of Alcohol and Drug Abuse Patient Records regulations: The Federal rules restrict any use of the information to criminally investigate or prosecute any alcohol or drug abuse patient.[facility] the event this information is protected by the Federal Confidentiality of Alcohol and Drug Abuse Patient Records regulations: The Federal rules restrict any use of the information to criminally investigate or prosecute any alcohol or drug abuse patient.[facility] the event this information is protected by the Federal Confidentiality of Alcohol and Drug Abuse Patient Records regulations: The Federal rules restrict any use of the information to criminally investigate or prosecute any alcohol or drug abuse patient.[facility] Hospital[facility] the event this information is protected by the Federal Confidentiality of Alcohol and Drug Abuse Patient Records regulations: The Federal rules restrict any use of the information to criminally investigate or prosecute any alcohol or drug abuse patient.[facility] Hospital[facility] the event this information is protected by the Federal Confidentiality of Alcohol and Drug Abuse Patient Records regulations: The Federal rules restrict any use of the information to criminally investigate or prosecute any alcohol or drug abuse patient.[facility] Hospital[facility] the event this information is protected by the Federal Confidentiality of Alcohol and Drug Abuse Patient Records regulations: The Federal rules restrict any use of the information to criminally investigate or prosecute any alcohol or drug abuse patient.[facility] HospitalIn the event this information is protected by the Federal Confidentiality of Alcohol and Drug Abuse Patient Records regulations: The Federal rules restrict any use of the information to criminally investigate or prosecute any alcohol or drug abuse patient.[facility] HospitalIn the event this information is protected by the Federal Confidentiality of Alcohol and Drug Abuse Patient Records regulations: The Federal rules restrict any use of the information to criminally investigate or prosecute any alcohol or drug abuse patient.[facility] HospitalIn the event this information is protected by the Federal Confidentiality of Alcohol and Drug Abuse Patient Records regulations: The Federal rules restrict any use of the information to criminally investigate or prosecute any alcohol or drug abuse patient.[facility] HospitalIn the event this information is protected by the Federal Confidentiality of Alcohol and Drug Abuse Patient Records regulations: The Federal rules restrict any use of the information to criminally investigate or prosecute any alcohol or drug abuse patient.[facility] HospitalIn the event this information is protected by the Federal Confidentiality of Alcohol and Drug Abuse Patient Records regulations: The Federal rules restrict any use of the information to criminally investigate or prosecute any alcohol or drug abuse patient.[facility] HospitalIn the event this information is protected by the Federal Confidentiality of Alcohol and Drug Abuse Patient Records regulations: The Federal rules restrict any use of the information to criminally investigate or prosecute any alcohol or drug abuse patient.[facility] HospitalIn the event this information is protected by the Federal Confidentiality of Alcohol and Drug Abuse Patient Records regulations: The Federal rules restrict any use of the information to criminally investigate or prosecute any alcohol or drug abuse patient.[facility] HospitalIn the event this information is protected by the Federal Confidentiality of Alcohol and Drug Abuse Patient Records regulations: The Federal rules restrict any use of the information to criminally investigate or prosecute any alcohol or drug abuse patient.[facility] HospitalIn the event this information is protected by the Federal Confidentiality of Alcohol and Drug Abuse Patient Records regulations: The Federal rules restrict any use of the information to criminally investigate or prosecute any alcohol or drug abuse patient.[facility] Reason for Visit (unrecogniz ed section and content) Reason Comments Acute Visit Reason Onset Date Comments Refill Request 01/16/2022 Reason Comments Musculoskeletal Problem left side/abd- s neezed last night and it dropped him to the floor Rx Refills were sent to wrong p harmacy please send to Randy moser Reason Comments Opened In Error Reason Comments Covid19 Concern Reason Comments Hospital Follow Up C/O continued SOB an d fatigue Recheck follow up lab vit d Medication Problem Patient reports joey ng trazadone but it was removed from list on 02/18/22 Reason Comments Conjunctivitis Reason Comments Cough Congestion, thick mu cous x 2 weeks Reason Comments swelling and irritation in genital area X 2 days Reason Comments Consult Reason Comments Follow Up Reason Comments Sore Throat ST, SOB, muscle tigh tness in back, cough and congestion x 1 day Reason Comments Cough Sinus pressure(pt st ates that sinus pressure is messing with his vision making things blurry and going in and out), chest congestion x 2 days Reason Comments Arm Injury left arm pain, tree branch fell on it x 3 days Care Teams (unrecognized sec tion and content) Team Status: Active Member Role Status Dates NP. Jessica Howe NP-C Primary Care Provider Activ e Team Status: Inactive Member Role Status Dates Dr. Orlin Canchola MD Referring Provider Active Dr. Gerber Krishnamurthy DO Attending Provider Active TOVA Irving Primary Care Provider Activ e Team Status: Active Member Role Status Dates Dr. Orlin Canchola MD Primary Care Provider Acti naseem FUNES PA-C Attending Provider, Referring Pr ovider Active Team Status: Inactive Member Role Status Dates SHANTEL Feng-C Attending Provider, Referring Pr ovider Active TOVA Irving Primary Care Provider Activ e Team Status: Inactive Member Role Status Dates TOVA Irving Primary Care Provider Activ MERLYN Monroy Attending Provider, Referring Provider Active Team Status: Inactive Member Role Status Dates TOVA Irving Primary Care Provider Activ e Dr. Gerber Krishnamurthy DO Attending Provider Active Team Status: Active Member Role Status Dates NP. Jessica Howe NP-C Primary Care Provider, Atte nding Provider Active Cake Knocker Relationship Specialty Start Date End Date Eran Canchola MD [address] [place], [place] [id number] PCP - General Family Practice 12/07/18 Cake Knocker Relationship Specialty Start Date End Date Eran Canchola MD [address] [place], [place] [id number] PCP - General Family Practice 12/07/18 Cake Knocker Relationship Specialty Start Date End Date Eran Canchola MD [address] [facility] [place] [address] PCP - General Family Practice 12/07/18 Cake Knocker Relationship Specialty Start Date End Date Eran Canchola MD [address] [facility] [place] [address] PCP - General Family Practice 12/07/18 Cake Knocker Relationship Specialty Start Date End Date Eran Canchola MD [address] [facility] [place] [address] PCP - General Family Practice 12/07/18 Cake Knocker Relationship Specialty Start Date End Date Eran Canchola MD [address] [facility] [place] [address] PCP - General Family Practice 12/07/18 Cake Knocker Relationship Specialty Start Date End Date Eran Canchola MD [address] [facility] [place] [address] PCP - General Family Medicine 12/07/18 Cake Knocker Relationship Specialty Start Date End Date Jessica Howe [address] [id number] PCP - General 08/11/22 Team Status: Active Member Role Status Dates NP. Jessica Howe APPLICATION RELEASE MANAGER-C Primary Care Provider Activ e MERLYN KEYS Attending Provider, Referring Provider Active Team Status: Inactive Member Role Status Dates NP. Jessica Howe , APPLICATION RELEASE MANAGER-C Primary Care Provider, Atte nding Provider Active Team Status: Inactive Member Role Status Dates NP. Jessica Howe APPLICATION RELEASE MANAGER-C Primary Care Provider Activ e Dr. Gerber Krishnamurthy DO Attending Provider, Referring Provider Active Team Status: Inactive Member Role Status Dates Dr. Orlin MIGUEL MD Referring Provider Acti ve Dr. Gerber Krishnamurthy , Attending Provider Active NP. Jessica Howe , APPLICATION RELEASE MANAGER-C Primary Care Provider Activ e Team Status: Active Member Role Status Dates Ray Eshenaur PA, PA-C Attending Provider, Referring Pr shakira Active APPLICATION RELEASE MANAGER. Jessica Howe APPLICATION RELEASE MANAGER-C Primary Care Provider Activ e Cake Knocker Relationship Specialty Start Date End Date Jessica Howe CNP [address] [place] [address] PCP - General Family Medicine 05/20/23 Cake Knocker Relationship Specialty Start Date End Date Jessica Howe CNP [address] [place] [address] PCP - General Family Medicine 05/20/23 Cake Knocker Relationship Specialty Start Date End Date Jessica Howe CNP [address] [place] [address] PCP - General Family Medicine 05/20/23 Cake Knocker Relationship Specialty Start Date End Date Jessica Howe CNP [address] [place] [address] PCP - General Family Medicine 05/20/23 Cake Knocker Relationship Specialty Start Date End Date Jessica Howe CNP [address] [place] [address] PCP - General Family Medicine 05/20/23 Cake Knocker Relationship Specialty Start Date End Date Jessica Howe CNP [address] [place] [address] PCP - General Family Medicine 05/20/23 Cake Knocker Relationship Specialty Start Date End Date Jessica Howe CNP [address] [place] [address] PCP - General Family Medicine 05/20/23 Cake Knocker Relationship Specialty Start Date End Date Eran Canchola MD [address] [place], [place] [id number] PCP - General Family Medicine 12/07/18 05/19/23 Cake Knocker Relationship Specialty Start Date End Date Rach Juarez CNP [address] [place] [address] PCP - General Family Medicine 01/17/25 Cake Knocker Relationship Specialty Start Date End Date Rach Juarez CNP [address] [place] [address] PCP - General Family Medicine 01/17/25 Goals (unrecognized section and content) Goals may be documented in a n alternate sectionGoals may be documented in an alternate sectionGoals may be documented in an alternate sectionGoals may be documented in an alternate sectionGoals may be documented in an alternate sectionGoals may be documented in an alternate section Inactive Administered Medications - up to 3 most recent administrations Administered Medications (un recognized section and content) Medication Order MAR Action Action Date Dose Rate Site albuterol 2.5 mg /3 mL (0.083 %) 2.5 mg (PROVENTIL) 2.5 mg, INHALATION, ONCE, 1 dose, On Wed11/17/23 at 1200 Given 11/17/2023 11:52 AM EDT 2.5 mg FOR RECORDS PERTAINING TO PATIENTS WHO ARE OR HAVE BEEN ENROLLED IN A CHEMICAL DEPENDENCY/SUBSTANCEABUSE PROGRAM, SOME INFORMATION MAY BE OMITTED. This clinical summary was aggregated from multiple sources. Caution should be exercised in using it in the provision of clinical care. This summary normalizes information from multiple sources, and as a consequence, information in this document may materially change the coding, format and clinical context of patient data. In addition, data may be omitted in some cases. CLINICAL DECISIONS SHOULD BE BASED ON THE PRIMARY CLINICAL RECORDS. [employer] [facility]. provides no warranty or guarantee of the accuracy or completeness of information in this document.
--- NOTE | 2025-03-03 12:00 | RAD_ITS ---
PROCEDURE: RIBS UNI MIN 3V W/PA CHEST 03/03/2025 REASON FOR EXAM: PAIN TECHNIQUE: RIBS UNI MIN 3V W/PA CHEST COMPARISON: 11/10/2021 FINDINGS: No acute, displaced rib fractures although consider CT if there is continued concern for occult fractures. Visualized portions of the lungs are clear. RAD/Ribs Uni Min 3V w/PA Chest IMPRESSION: No acute, displaced rib fractures although consider CT if there is continued co ncern for occult fractures. Reading Location: [id number]
[2025-03-03] MEDS: Morphine 4 MG/ML Syringe IM (12:16)
--- NOTE | 2025-03-03 12:41 | EDS_ITS ---
HPI History of Present Illness Chief Complaint: Other, Pain/Inj Informant: patient Onset/Context/Timing Onset: Today Quality of Pain: Aching and Stabbing (With movement) Location: Right lower ribs Worsened by: Movement Relieved by: Rest Associated Symptoms Associated Symptoms: Positive for Parasthesias, Weakness, Loss of function, Inability to ambulate and Loss of consciousness Narrative Narrative: Patient presents with right lower rib pain that began today. Patient states he was bending over and felt a pop in his right lower rib area. Patient describes it as aching and stabbing. Patient states it is worse with movement. Patient states it is better with rest. Patient denies any falls. Patient denies any nausea or vomiting. Patient denies any fevers or chills. Patient denies any other injuries. [facility] Medical History (Updated 03/03/25 @ 13:[address] Monroe Forrest, DO) PTSD (post-traumatic stress disorder) Left hip pain RUQ pain HTN (hypertension) Injury of meniscus of knee Home Medications ?Medication ?Instructions ?Recorded ?Last Taken ?Type hydrochlorothiazide 25 mg tablet 25 mg PO DAILY Unknown History lisinopril 40 mg tablet 40 mg PO DAILY 05/30/20 Unkn own History pantoprazole 40 mg tablet,delayed 40 mg PO DAILY #30 t abs 08/07/21 Unknown Rx release (Protonix) sertraline 100 mg tablet 100 mg PO DAILY 07/28/22 Unk nown History sertraline 50 mg tablet 50 mg PO DAILY 07/28/22 Unkn own History trazodone 50 mg tablet 50 mg PO DAILY 07/28/22 Unkn own History budesonide 3 mg 3 mg PO TID #270 ea 02/05/23 Unknown Rx capsule,delayed,extended release doxycycline hyclate 100 mg capsule 100 mg PO BID #28 c aps 02/05/23 Unknown Rx glipizide 5 mg tablet, extended 5 mg PO DAILY 02/05/23 Unknown History release 24 hr hydrocodone-acetaminophen 5-325mg 1 tab PO Q6H PRN PRN Pain 3 days 03/03/25 Unknown Rx 5mg-325mg #10 TABLETS Allergy/AdvReac Type Severity Reaction Status Date / Time No Known Allergies Allergy Verified 03/03/25 11:22 Family History Grandfather Throat cancer Surgical History History of hip replacement H/O left knee surgery Social History Smoking Status: Former smoker alcohol intake: current alcohol intake frequency: a few times a week substance use type: does not use ROS ROS ED Constitutional Constitutional ED: Denies chills or fever(s) Eyes Eyes: Denies blurry vision or change in vision ENT ENT ED: Denies rhinorrhea or sore throat Cardiovascular Cardiovascular: Denies chest pain or palpitations Respiratory/Chest Respiratory/Chest: Denies cough or dyspnea Gastrointestinal Gastrointestinal: Denies nausea or vomiting Genitourinary Genitourinary ED: Denies dysuria or hematuria Musculoskeletal Musculoskeletal: Reports back pain; Denies neck pain Integumentary Denies abscess or rash Neurologic Neurologic: Denies headache(s) or weakness Allergic/Immunologic Allergic/Immunologic ED: Denies mouth swelling or urticaria EXAM Physical Exam Const Vital Signs: 03/03/25 11:19 Temperature 97.6 F L Temperature Source Oral Pulse Rate 80 Respiratory Rate 24 H Blood Pressure 185/96 H Blood Pressure Mean 125 Pulse Ox 93 Oxygen Delivery Method Room Air Positive well nourished and well developed General Appearance ED: well developed and NAD HEENT atraumatic Neck full ROM Chest Wall Chest Narrative: There is tenderness to palpation over the right lower ribs. There is no bony crepitance or step-off. There is no edema or ecchymosis noted. There is no subcutaneous emphysema palpated. Resp normal respiratory effort and clear to auscultation bilaterally Cardio regular rhythm Rate: regular rate GI non-tender and non-distended Palpation: soft Back/Spine normal to inspection Neuro oriented x3, CN's II-XII intact bilaterally, moves all extremities, no focal motor deficits and no sensory deficits noted House Coma Scale: document GCS findings Spontaneous Obeys Commands Oriented 15 Sensorium / Orientation: alert Motor Exam: strength 5/5 throughout Psych mental status grossly normal MDM MDM MDM Narrative Medical decision making narrative: Differential diagnosis includes rib fracture, contusion, muscle strain, and pneumothorax. X-rays of the right ribs will be obtained to assess for rib fracture or pneumothorax. Radiography Diagnostic Testing: X-rays of the right ribs were obtained. There are 5 views. On my independent interpretation, there is no acute fracture. There is no pneumothorax. Radiologist also interpreted the x-rays and agrees. Treatment and Re-Evaluation Narrative: Patient was given an injection of morphine here. Patient was feeling better on reevaluation. Patient was advised of his findings. Patient was instructed to use ice to the area. Patient was given a prescription for short course of [place]. Patient was instructed to follow-up with his primary care physician in 5 to 7 days. Patient understood and was agreeable with the plan. All questions were answered. Discharge Plan Triage Chief Complaint: Other, Pain/Inj ED Provider: Monroe Forrest Dx/Rx/DC Orders Clinical Impression: Chest wall muscle strain, HTN (hypertension) Instructions: ED Chest Wall Pain, Costochondritis, ED Chest Wall Strain Prescriptions: New hydrocodone-acetaminophen 5-325 mg tablet 1 tab PO Q6H PRN PRN (Reason: Pain) 3 Days Qty: 10 0RF No Action sertraline 50 mg tablet 50 mg PO DAILY sertraline 100 mg tablet 100 mg PO DAILY Patient Comments: Take with 50mg trazodone 50 mg tablet 50 mg PO DAILY glipizide 5 mg tablet extended release 24hr 5 mg PO DAILY budesonide 3 mg capsule,delayed,extend.release 3 mg PO TID Qty: 270 1RF doxycycline hyclate 100 mg capsule 100 mg PO BID Qty: 28 1RF hydrochlorothiazide 25 MG tablet 25 mg PO DAILY lisinopril 40 MG tablet 40 mg PO DAILY pantoprazole [Protonix] 40 mg tablet,delayed release (DR/EC) 40 mg PO DAILY Qty: 30 0RF [facility] [Primary Care Provider] - 5-7 Days Print Language: Macedonian Disposition Disposition: Home, Self Care
[2025-03-03 14:08] VITALS: BP 170/84; PULSE 76; RESP 20; TEMP 36.4; O2SAT 93
== END 2025-03-03 14:08 | disposition home or self-care (01) ==
PROVIDERS: Emergency Provider Emergency Medicine; Visit Provider Emergency Medicine
DX: S29.011A Strain of muscle and tendon of front wall of thorax, initial encounter (principal); I10 Essential (primary) hypertension; Z87.891 Personal history of nicotine dependence; R20.0 Anesthesia of skin; X50.1XXA Overexertion from prolonged static or awkward postures, initial encounter
CPT/HCPCS: 71101; 96372; 99282